=== PATIENT | female | born 1940 | race Caucasian/White ===

== ENCOUNTER → 2016-10-04 | Outpatient (CLI) | payer MEDICARE, OTHER ==
--- NOTE | 2016-10-04 12:23 | WOMENS IMAGING REPORT ---
EXAM DESCRIPTION: 3D SCREENING MAMMO BILAT COMPLETED DATE/TIME: 10/04/2016 11:17 am REASON FOR STUDY: ROUTINE SCREENING 3D; Z12.31 Z12.31 ENCNTR SCREEN MAMMOGRAM FOR MALIGNANT NEOPLAS M OF ALEX COMPARISON: 10/05/2015 and 10/02/2014. TECHNIQUE: Standard craniocaudal and mediolateral oblique views of each breast recorded using digita l acquisition and breast tomosynthesis. LIMITATIONS: None. FINDINGS: Findings present which are benign by mammographic criteria. No suspicious masses, calcifi cations or architectural distortion. Pertinent benign findings: Stable calcifications. Read with the assistance of CAD. .[facility] - R2 Cenova Version 1.3 .[facility] Imaging - R2 Cenova Version 1.3 .[facility] - R2 Cenova Version 2.4 .[facility] [place] Cenova Version 2.4 .[facility] - R2 Tankroom Worker Version 9.2 Benign mammographic findings may include one or more of the following: Smooth masses, popcorn/rim/co arse calcifications, asymmetries, post-procedure changes, and lesions with long-standing stability. IMPRESSION: BENIGN MAMMOGRAPHIC FINDINGS. BIRADS 2 BREAST DENSITY: b. There are scattered areas of fibroglandular density. BIRAD: 2 BENIGN FINDING(S) RECOMMENDATION: RECOMMENDATION: ROUTINE SCREENING COMMENT: The patient has been notified of the results by letter per SA requirements. Additional no tification policies are in place for contacting patient with suspicious or incomplete findings. Quality ID #[id number]: The [employer] recommends an annual screening mammogram for women aged 40 years or over. This facility utilizes a reminder system to ensure that all patients receive reminder letters, and/or direct phone calls for appointments. This includes reminders for routine scr eening mammograms, diagnostic mammograms, or other Breast Imaging Interventions when appropriate. Th is patient will be placed in the appropriate reminder system. The [employer] (ACR) has developed recommendations for screening MRI of the breast s in certain patient populations, to be used in conjunction with mammography. Breast MRI surveillanc e may be appropriate for women with more than 20% lifetime risk of developing breast cancer as deter mined by genetic testing, significant family history of the disease, or history of mantle radiation f or Hodgkins Disease. ACR Practice Guidelines 2008. DBT Technology DBT is a type of tomographic mammography. With conventional mammography, overlapping breast tissue ma y make lesions difficult to detect, even with good compression. DBT uses an x-ray tube that rotates a round the breast, taking images at different angles. These images are then combined to create thin sl ices of the breast that the radiologist can view as a 3D reconstruction. The [employer] unit can perform full-field digital mammograms (2D imaging); or DBT (3D imaging); or both, in a combination mode that quickly performs both the mammogram and the tomosynthesis scan while the breast is still compressed. PQRS 6045F: Fluoroscopic imaging is not utilized for breast tomosynthesis. TECHNICAL DOCUMENTATION: FINDING NUMBER: (1) ASSESSMENT: (1) JOB ID: [id number] [employer]- All Rights Reserved
== END ==
LOC: WI 10:43
PROVIDERS: ATTEND Surgery
DX: Z12.31 Encounter for screening mammogram for malignant neoplasm of breast (principal)
CPT/HCPCS: 77063; G0202; 77067

== ENCOUNTER → 2016-11-28 | Outpatient (CLI) | payer MEDICARE, OTHER ==
--- NOTE | 2016-11-28 10:17 | RADIOLOGY REPORT (SQ) ---
EXAM DESCRIPTION: CT CHEST WITHOUT COMPLETED DATE/TIME: 11/28/2016 7:14 am REASON FOR STUDY: SOLITARY PULMONARY NODULE (R91.1), OTHER DISORDERS OF LUNG (J98.4) R91.1 SOLITARY PULMONARY NODULE J98.4 OTHER DISORDERS OF LUNG COMPARISON: PET-CT 11/30/2014 CT chest 10/30/2014, 11/26/2015 TECHNIQUE: CT scan performed of the chest without intravenous contrast. Images reviewed with lung, soft tissue and bone windows. Reconstructed coronal and sagittal MPR images reviewed. All images st ored on PACS. All CT scanners at this facility use dose modulation, iterative reconstruction, and/or weight based d osing when appropriate to reduce radiation dose to as low as reasonably achievable (ALARA). [facility]: Dose Right [facility]: CareDose [facility]: Dose Right [facility]: Teradose 4D [facility]: [employer] RADIATION DOSE: Up-to-date CT equipment and radiation dose reduction techniques were employed. CTDIv ol: 15.3 - 16.3 mGy. DLP: 840 mGy-cm. mGy. LIMITATIONS: No technical limitations. FINDINGS: LUNGS AND PLEURA: An 8 mm left lower lobe nodule is present on axial image 93, unchanged f rom CT 10/30/2014, benign. Along the right major fissure, a 10 x 8 cm bulla or bleb is present unchanged. No acute infiltrates. No pleural effusion or pneumothorax. HILAR AND MEDIASTINAL STRUCTURES: Stable 1.3 x 0.9 cm prevascular lymph node axial image 24, unchange d from 10/30/2014. HEART AND VASCULAR STRUCTURES: No aneurysm. No pericardial effusion. UPPER ABDOMEN: Post cholecystectomy THYROID AND OTHER SOFT TISSUES: No masses. No adenopathy. BONES: No significant finding. HARDWARE: None in the chest. OTHER: No other significant findings. IMPRESSION: 8 mm left lower lobe nodule, benign. This is unchanged from 2015. TECHNICAL DOCUMENTATION: JOB ID: [id number] Quality ID # [id number]: Final reports with documentation of one or more dose reduction techniques (e.g., Au tomated exposure control, adjustment of the mA and/or kV according to patient size, use of iterative reconstruction technique) 2010 [employer]- All Rights Reserved
== END ==
LOC: RAD 07:00
PROVIDERS: ATTEND Internal Medicine
DX: R91.1 Solitary pulmonary nodule (principal); J98.4 Other disorders of lung
CPT/HCPCS: 71250

== ENCOUNTER → 2017-08-05 | Outpatient (CLI) | payer MEDICARE, OTHER ==
--- NOTE | 2017-08-05 16:49 | RADIOLOGY REPORT (SQ) ---
EXAM DESCRIPTION: MRI PELVIS WITHOUT COMPLETED DATE/TIME: 08/05/2017 4:07 pm REASON FOR STUDY: HIP PAIN YANIRA M25.551 PAIN IN RIGHT HIP M25.552 PAIN IN LEFT HIP COMPARISON: None. TECHNIQUE: Multiplanar multisequence imaging performed without contrast including axial, sagittal an d coronal T2, axial T1, sagittal inversion recovery. LIMITATIONS: None. FINDINGS: There is heterogeneous intermediate T1 signal most likely due to benign marrow reconversio n. There is joint space narrowing, osteophyte formation in both hips. Extensive subchondral cyst fo rmation in both femoral heads and in the left acetabulum. Small amount of fluid at the left gluteal insertion on the greater trochanter. No significant bursal fluid collection. Pelvic floor contents unremarkable. Spondylosis and facet arthropathy. 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 TECHNICAL DOCUMENTATION: JOB ID: [id number] [employer]- All Rights Reserved Reading location - IP/workstation name: [email or web address]
== END ==
LOC: RAD 14:38
PROVIDERS: ATTEND Orthopaedic Surgery
DX: M25.551 Pain in right hip (principal); M25.552 Pain in left hip; M16.0 Bilateral primary osteoarthritis of hip
CPT/HCPCS: 72195

== ENCOUNTER → 2017-10-12 | Outpatient (CLI) | payer MEDICARE, OTHER ==
--- NOTE | 2017-10-13 09:55 | WOMENS IMAGING REPORT ---
EXAM DESCRIPTION: 3D SCREENING MAMMO BILAT COMPLETED DATE/TIME: 10/12/2017 2:08 pm REASON FOR STUDY: BILATERAL MAMMO SCREENING 3D/Z12.31 Z12.31 ENCNTR SCREEN MAMMOGRAM FOR MALIGNANT NEOPLASM OF ALEX COMPARISON: 10/04/2016 and 10/05/2015. TECHNIQUE: Standard craniocaudal and mediolateral oblique views of each breast recorded using digita l acquisition and breast tomosynthesis. LIMITATIONS: None. FINDINGS: No masses, calcifications or architectural distortion. No areas of suspicion. Read with the assistance of CAD. .[facility] - R2 Cenova Version 1.3 .[facility] Imaging - R2 Cenova Version 1.3 .[facility] - R2 Cenova Version 2.4 .[facility] - R2 Cenova Version 2.4 .[facility] - R2 Manufacturing Technology Analyst Version 9.2 IMPRESSION: NORMAL MAMMOGRAM. BIRADS 1. BREAST DENSITY: b. There are scattered areas of fibroglandular density. BIRAD: 1 NEGATIVE RECOMMENDATION: ROUTINE SCREENING COMMENT: The patient has been notified of the results by letter per SA requirements. Additional no tification policies are in place for contacting patient with suspicious or incomplete findings. Quality ID #225: The [employer] recommends an annual screening mammogram for women aged 40 years or over. This facility utilizes a reminder system to ensure that all patients receive reminder letters, and/or direct phone calls for appointments. This includes reminders for routine scr eening mammograms, diagnostic mammograms, or other Breast Imaging Interventions when appropriate. Th is patient will be placed in the appropriate reminder system. The [employer] (ACR) has developed recommendations for screening MRI of the breast s in certain patient populations, to be used in conjunction with mammography. Breast MRI surveillanc e may be appropriate for women with more than 20% lifetime risk of developing breast cancer as deter mined by genetic testing, significant family history of the disease, or history of mantle radiation f or Hodgkins Disease. ACR Practice Guidelines 2008. DBT Technology DBT is a type of tomographic mammography. With conventional mammography, overlapping breast tissue ma y make lesions difficult to detect, even with good compression. DBT uses an x-ray tube that rotates a round the breast, taking images at different angles. These images are then combined to create thin sl ices of the breast that the radiologist can view as a 3D reconstruction. The [employer] 3D unit can perform full-field digital mammograms (2D imaging); or DBT (3D imaging); or both, in a combination mode that quickly performs both the mammogram and the tomosynthesis scan while the breast is still compressed. PQRS 6045F: Fluoroscopic imaging is not utilized for breast tomosynthesis. TECHNICAL DOCUMENTATION: FINDING NUMBER: (1) ASSESSMENT: (1) JOB ID: [id number] [employer]- All Rights Reserved Reading location - IP/workstation name: [email or web address]
== END ==
LOC: WI 12:44
PROVIDERS: ATTEND Surgery
DX: Z12.31 Encounter for screening mammogram for malignant neoplasm of breast (principal)
CPT/HCPCS: 77063; 77067

== ENCOUNTER → 2017-11-28 | Outpatient (CLI) | payer MEDICARE, OTHER ==
--- NOTE | 2017-11-28 12:54 | RADIOLOGY REPORT (SQ) ---
EXAM DESCRIPTION: CT CHEST WITHOUT COMPLETED DATE/TIME: 11/28/2017 12:38 pm REASON FOR STUDY: SOLITARY PULMONARY NODULE (R91.1) R91.1 SOLITARY PULMONARY NODULE COMPARISON: 11/28/2016 TECHNIQUE: CT scan performed of the chest without intravenous contrast. Images reviewed with lung, soft tissue and bone windows. Reconstructed coronal and sagittal MPR images reviewed. All images st ored on PACS. All CT scanners at this facility use dose modulation, iterative reconstruction, and/or weight based d osing when appropriate to reduce radiation dose to as low as reasonably achievable (ALARA). [facility]: Dose Right [facility]: CareDose [facility]: Dose Right [facility]: Teradose 4D [facility]: [employer] RADIATION DOSE: CT Rad equipment meets quality standard of care and radiation dose reduction techniq ues were employed. CTDIvol: 17.9 mGy. DLP: 696 mGy-cm. mGy. LIMITATIONS: No technical limitations. FINDINGS: LUNGS AND PLEURA: 8 mm pulmonary nodule left lower lobe has been stable since 2014. No ne w nodules. Stable bulla right lower lobe. HILAR AND MEDIASTINAL STRUCTURES: No identified masses or abnormal nodes. No obvious aneurysm. HEART AND VASCULAR STRUCTURES: No aneurysm. No pericardial effusion. UPPER ABDOMEN: No significant findings. Limited exam. THYROID AND OTHER SOFT TISSUES: No masses. No adenopathy. BONES: No significant finding. HARDWARE: None in the chest. OTHER: No other significant findings. IMPRESSION: Benign pulmonary nodule. TECHNICAL DOCUMENTATION: JOB ID: [id number] Quality ID # [id number]: Final reports with documentation of one or more dose reduction techniques (e.g., Au tomated exposure control, adjustment of the mA and/or kV according to patient size, use of iterative reconstruction technique) 2010 [employer]- All Rights Reserved Reading location - IP/workstation name: [email or web address]-[email or web address]
== END ==
LOC: RAD 12:19
PROVIDERS: ATTEND Internal Medicine
DX: R91.1 Solitary pulmonary nodule (principal)
CPT/HCPCS: 71250

== ENCOUNTER → 2017-12-06 | Outpatient (CLI) | payer MEDICARE, OTHER ==
[2017-12-06 14:35] LABS: ABSOLUTE BASOPHILS # (AUTO) 0.1 10^3/uL (0.0-0.2); ABSOLUTE EOSINOPHILS # (AUTO) 0.2 10^3/uL (0.0-0.6); ABSOLUTE LYMPHOCYTES (AUTO) 1.7 10^3/uL (0.5-4.7); ABSOLUTE MONOCYTES (AUTO) 0.3 10^3/uL (0.1-1.4); ABSOLUTE NEUT (AUTO) 4.2 10^3/uL (1.7-8.2); BASOPHILS % (AUTO) 1.2 % (0-2); EOSINOPHILS % (AUTO) 2.7 % (0-6); HEMATOCRIT 38.2 % (36.0-47.0); HEMOGLOBIN 12.7 g/dL (12.0-15.5); LYMPHOCYTES % (AUTO) 25.8 % (13-45); MEAN CORPUSCULAR HEMOGLOBIN 29.6 pg (27.0-33.4); MEAN CORPUSCULAR HGB CONC 33.1 g/dL (32.0-36.0); MEAN CORPUSCULAR VOLUME 90 fl (80-97); MONOCYTES % (AUTO) 5.4 % (3-13); PLATELET COUNT 223 10^3/uL (150-450); RED BLOOD COUNT 4.27 10^6/uL (3.72-5.28); SEGMENTED NEUTROPHILS % (AUTO) 64.9 % (42-78); TOTAL CELLS COUNTED % (AUTO) 100 %; WHITE BLOOD COUNT 6.4 10^3/uL (4.0-10.5)
[2017-12-06 14:46] LABS: ANION GAP 8 (5-19); BLOOD UREA NITROGEN 20 mg/dL (7-20); CALCIUM 9.4 mg/dL (8.4-10.2); CARBON DIOXIDE 30 mmol/L (22-30); CHLORIDE 102 mmol/L (98-107); GLUCOSE 114 mg/dL (75-110); POTASSIUM 4.8 mmol/L (3.6-5.0); SODIUM 140.2 mmol/L (137-145)
[2017-12-06 14:49] LABS: APPEARANCE,URINE SLIGHTLY-CLOUDY; BILIRUBIN,URINE NEGATIVE (NEGATIVE); COLOR,URINE YELLOW; GLUCOSE, URINE NEGATIVE (NEGATIVE); KETONES,URINE NEGATIVE (NEGATIVE); LEUKOCYTE ESTERASE,URINE TRACE (NEGATIVE); NITRITE,URINE NEGATIVE (NEGATIVE); PROTEIN,URINE NEGATIVE (NEGATIVE); URINE SPECIFIC GRAVITY 1.017; UROBILINOGEN,URINE NEGATIVE mg/dL (<2.0)
--- NOTE | 2017-12-06 15:23 | RADIOLOGY REPORT (SQ) ---
EXAM DESCRIPTION: CHEST PA/LATERAL COMPLETED DATE/TIME: 12/06/2017 2:42 pm REASON FOR STUDY: PRE-OP COMPARISON: CT 11/28/2017 EXAM PARAMETERS: NUMBER OF VIEWS: two views TECHNIQUE: Digital Frontal and Lateral radiographic views of the chest acquired. RADIATION DOSE: NA LIMITATIONS: none FINDINGS: LUNGS AND PLEURA: No acute infiltrate or effusion. Large pneumatocoele on the right can b e defined, especially knowing the CT results. MEDIASTINUM AND HILAR STRUCTURES: No masses or contour abnormalities. HEART AND VASCULAR STRUCTURES: Heart normal size. No evidence for failure. BONES: No acute findings. HARDWARE: None in the chest. OTHER: No other significant finding. IMPRESSION: No acute findings in the chest. Known large pneumatocoele on the right. TECHNICAL DOCUMENTATION: JOB ID: [id number] [employer]- All Rights Reserved Reading location - IP/workstation name: [email or web address]
--- NOTE | 2017-12-07 09:09 | EKG REPORT ---
SEVERITY:- BORDERLINE ECG - SINUS RHYTHM BORDERLINE LEFT AXIS DEVIATION CONSIDER ANTERIOR INFARCT : Confirmed by: Alf Dinh 07-Dec-2017 09:08:24
== END ==
LOC: OD 13:36
PROVIDERS: ATTEND Orthopaedic Surgery
DX: Z01.810 Encounter for preprocedural cardiovascular examination (principal); Z01.812 Encounter for preprocedural laboratory examination; Z01.818 Encounter for other preprocedural examination; J98.4 Other disorders of lung
CPT/HCPCS: 36415; 71046; 80048; 81001; 85025; 93005; 93010

== ENCOUNTER 2018-01-01 07:52 | Inpatient (IN) | payer MEDICARE, OTHER ==
[~2018-01-01 07:52] MED LIST: BUPIVACAINE HCL 0.25% /EPINEPHRINE INJ/PF 30 ML SDV ONE; BUPIVACAINE INJ/PF LIPOSOME/PF 266 MG/20 ML SDV IJ PRN; CEFAZOLIN INJ 1 GM VIAL IV PRN; CLINDAMYCIN 600 MG/D5W RTU 600 MG/50 ML RTUPB IV PRN; IBUPROFEN 800 MG/NS 250 ML IV PRN; LACTATED RINGERS 1000 ML IV PRN; LANSOPRAZOLE 15 MG TAB.RAP.DR PO PRN; LIDOCAINE 0.5% INJ-PF (5 MG/ML) 50 ML SDV SUBCUT PRN; OXYCODONE HCL SR 10 MG TABLET PO PRN; THROMBIN (BOVINE) TOPICAL 20000 UNIT VIAL ONE; VANCOMYCIN HCL 1,000 MG in DEXTROSE 5%-WATER 250 ML IV PRN
[2018-01-01] MEDS ORDERED: EPINEPHRINE INJ/PF 1 MG/1 ML AMPULE ONE (08:59)
[2018-01-01] MEDS ORDERED: FENTANYL CITRATE INJ/PF 100 MCG/2 ML AMPUL ONE (08:59)
[2018-01-01] MEDS ORDERED: MIDAZOLAM 2 MG/2 ML INJ ONE (09:00)
[2018-01-01] MEDS ORDERED: EPHEDRINE SULFATE INJ 50 MG/1 ML AMPULE ONE (09:00)
[2018-01-01] MEDS ORDERED: PROPOFOL INJ 200 MG/20 ML VIAL IV ONE (09:00)
[2018-01-01] MEDS ORDERED: BUPIVACAINE HCL/DEX-WATER/PF 15 MG/2 ML AMPULE ONE (09:01)
[2018-01-01] MEDS ORDERED: THROMBIN (BOVINE) 5000 UNIT EPITAXIS KIT ONE (09:03)
[2018-01-01] MEDS ORDERED: LANSOPRAZOLE 15 MG TAB.RAP.DR ONE (09:17)
[2018-01-01] MEDS ORDERED: OXYCODONE HCL SR 10 MG TABLET PO ONE (09:18)
[2018-01-01] MEDS ORDERED: PROMETHAZINE HCL INJ 25 MG/1 ML VIAL IV PRN ×2 (10:37)
[2018-01-01] MEDS ORDERED: MEPERIDINE HCL/PF INJ 25 MG/1 ML DISP.SYRIN IV PRN (10:37)
[2018-01-01] MEDS ORDERED: DIPHENHYDRAMINE HCL 50 MG/ML VIAL IV PRN ×2 (10:37→11:21)
--- NOTE | 2018-01-01 11:19 | Operative Report ---
Operative Report DATE OF SURGERY: 01/01/18 PREOPERATIVE DIAGNOSIS: Right hip arthritis OPERATION: Right hip arthroplasty SURGEON: QUETA SMALLS ANESTHESIA: Spinal TISSUE REMOVED OR ALTERED: Femoral head to pathology ESTIMATED BLOOD LOSS: 100 PROCEDURE: Implants used: Femur: Wharton size 4 Accolade 2 stem Acetabular shell: 56 mm hemispherical shell Liner: 36 mm flat cross-link polyethylene liner Head: A 6 mm chrome cobalt head standard neck The patient is placed in a left lateral decubitus position on the operating table. The right lower extremity and hindquarter is prepped and draped in a sterile fashion. A curvilinear incision was made over the greater trochanter a posterior approach the hip was taken. The femoral head is dislocated and the femoral neck transected using an oscillating saw. Attention was next turned to the acetabulum. Soft tissues cleared off the acetabulum using electrocautery. The acetabulum was then prepared using a series of hemispherical reamers until a 56 millimeters reamer is seated. Subsequently a 56 millimeters [place] titanium hemispherical shell is impacted into position and secured with one screw. A standard flat 36 millimeters cross- link liner is impacted into the shell. Attention was next turned to the femur. Access is gained to the femoral canal using a box osteotome to the piriformis fossa. The femur is then prepared using a series of broaches until a number 4 broach is seated. A trial reduction was now performed using a 36 millimeters head with standard neck. Preoperative leg length was recreated and is excellent anterior posterior stability. A decision was made to proceed with the above construct. All trial implants were removed. The wound is irrigated with pulsed lavage. A number 4 stem is impacted into the femoral canal. A trial reduction was again performed with a 36 mm head and a standard neck. Findings as previously. The hip was dislocated one last time and the final chrome-cobalt head is impacted onto the trunnion. The hip was reduced. Wound is copiously irrigated with pulsed lavage. Sent closed in layers using interrupted Vicryl followed by gwendolyn. A sterile dressing is applied and the patient's returned to recovery room in satisfactory patient.
[2018-01-01] MEDS ORDERED: ACETAMINOPHEN 325 MG TABLET PO PRN (11:21)
[2018-01-01] MEDS ORDERED: ONDANSETRON 4 MG TAB.RAPDIS PO PRN (11:21)
[2018-01-01] MEDS ORDERED: MAG HYDROX/AL HYDROX/SIMETH SUSP 30 ML UDCUP PO PRN (11:21)
[2018-01-01] MEDS ORDERED: RINGERS SOLUTION,LACTATED 1,000 ML IV PRN (11:21)
[2018-01-01] MEDS ORDERED: ZOLPIDEM TARTRATE 5 MG TABLET PO PRN (11:21)
[2018-01-01] MEDS ORDERED: TRANEXAMIC ACID INJ/PF 1,000 MG/10 ML SDV IV ONE ×2 (13:30→13:38)
--- NOTE | 2018-01-01 13:37 | RADIOLOGY REPORT (SQ) ---
EXAM DESCRIPTION: PELVIS AP COMPLETED DATE/TIME: 01/01/2018 12:04 pm REASON FOR STUDY: Post Op Long Cassette in PACU M16.11 UNILATERAL PRIMARY OSTEOARTHRITIS, RIGHT HI P COMPARISON: None. NUMBER OF VIEWS: One view TECHNIQUE: AP Pelvis LIMITATIONS: None. FINDINGS: Imaging of the pelvis and proximal femurs shows a right hip arthroplasty in good position. No acute abnormality is seen. Lower lumbar degenerative changes are present. IMPRESSION: Right hip arthroplasty. TECHNICAL DOCUMENTATION: JOB ID: [id number] [employer]- All Rights Reserved Reading location - IP/workstation name: [email or web address]
[2018-01-01] MEDS ORDERED: DIAZEPAM 5 MG TABLET PO SCH (14:00)
[2018-01-01] MEDS: OXYCODONE HCL IR 5 MG TABLET PO PRN (14:51)
--- NOTE | 2018-01-01 17:52 | PDOC CONSULTATION ---
Consultation Consult Date: 01/01/18 Attending physician:: QUETA SMALLS Consult reason:: medical mx History of Present Illness Admission Date/PCP: 01/01/18 07:52 RANJAN PRICE MD History of Present Illness: TIM ORELLANA is a 77 year old female pt under went for rt hip replace ment pt is doing well pt walk with pt today no chest pain no sob ptalso see dr uqeen and dr reed as out pt for cad/ckd Past Medical History Cardiac Medical History: Reports: Congestive Heart Failure, Coronary Artery Disease, Hypertension, Heart Murmur Denies: Atrial Fibrillation, Myocardial Infarction, Hyperlipidema, Peripheral Vascular Disease Cardiac History Note: aortic valve disese Pulmonary Medical History: Denies: Asthma, Bronchitis, Chronic Obstructive Pulmonary Disease (COPD), Pneumonia Neurological Medical History: Denies: Seizures Endocrine Medical History: Reports: Hypothyroidism Denies: Hyperthyroidism Renal/ Medical History: Reports: Chronic Kidney Disease Denies: End Stage Renal Disease GI Medical History: Reports: Gastroesophageal Reflux Disease Denies: Crohn's Disease, Hiatal Hernia Musculoskeltal Medical History: Reports: Arthritis - hips, knees, hands Denies: Fibromyalgia Hematology: Denies: Anemia Past Surgical History Past Surgical History: Reports: Cholecystectomy, Hysterectomy Denies: Amputation, Appendectomy, Section, Colostomy, Coronary Artery Bypass Graft, Gastric Bypass Surgery, Herniorrhaphy, Mastectomy, Pacemaker, Tonsillectomy, Tubal Ligation Social History Smoking Status: Former Smoker Hx Recreational Drug Use: No Hx Prescription Drug Abuse: No - Advance Directive Resuscitation Status: Full Code Family History Family History: Reviewed & Not Pertinent Parental Family History Reviewed: Yes Children Family History Reviewed: Yes Sibling(s) Family History Reviewed.: Yes Medication/Allergy Home Medications: Acetaminophen [Tylenol 325 mg Tablet] 500 mg PO ASDIR PRN 10/04/12 Allopurinol [Zyloprim 100 Mg Tablet] 100 mg PO DAILY 10/04/12 Aspirin [Ecotrin 81 mg EC Tablet] 81 mg PO QHS 10/04/12 Atorvastatin Calcium [Lipitor] 10 mg PO QHS 10/04/12 Calcium Carbonate/Vitamin D3 [Calcium + Vitamin D Tablet] 600 mg PO BID Diazepam [Valium 5 Mg Tablet] 5 mg PO TID 10/04/12 Ergocalciferol (Vitamin D2) [Drisdol 50,000 unit (1.25MG) Capsule] 50,000 unit PO ASDIR 10/04/12 Estrogens,Conjugated [Premarin 0.3 Mg Tablet] 0.3 mg PO DAILY 10/04/12 Furosemide [Lasix 20 mg Tablet] 10 mg PO DAILY 10/04/12 Gabapentin [Neurontin 300 Mg Capsule] 300 mg PO BID 10/04/12 Levothyroxine Sodium [Synthroid 0.075 mg Tablet] 0.015 mcg PO DAILY 10/04/12 Meclizine HCl [Antivert] 25 mg PO ASDIR PRN 10/04/12 Metoprolol Tartrate [Lopressor 25 Mg Tablet] 25 mg PO BID 10/04/12 Mineral Oil/Hydrophil Petrolat [Aquaphor Healing Ointment] 50 gm TP ASDIR [place]-3 Fatty Acids/Fish Oil [[place] 3 Fish Oil Softgel] 1 each PO DAILY Psyllium Husk [Metamucil] 0.52 gm PO DAILY 10/04/12 Ranitidine HCl 150 mg PO BID 10/04/12 Zafirlukast [Accolate 10 mg Tablet] 10 mg PO DAILY 10/04/12 Ibuprofen 800 mg PO DAILY 12/21/17 Multivit-Min/Iron/Folic/Lutein [Centrum Silver Women Tablet] 1 tab PO DAILY Telmisartan [Micardis 80 mg Tablet] 80 mg PO DAILY 12/21/17 Allergies/Adverse Reactions: ciprofloxacin [From Cipro] Allergy (Intermediate, Verified 01/01/18 08:28) rash, n/v ciprofloxacin HCl [From Cipro] Allergy (Intermediate, Verified 01/01/18 08:28) rash, n/v metronidazole [Metronidazole] Allergy (Intermediate, Verified 01/01/18 08:28) unsure morphine [Morphine] Allergy (Intermediate, Verified 01/01/18 08:28) n/v cephalexin monohydrate [From Keflex] Adverse Reaction (Intermediate, Verified 08:28) rash codeine [Codeine] Adverse Reaction (Intermediate, Verified 01/01/18 08:28) n/v Sulfa (Sulfonamide Antibiotics) Adverse Reaction (Intermediate, Verified 08:28) hives, rash Bee stings Allergy (Severe, Uncoded 01/01/18 08:28) Anaphylaxis IVP Dye Adverse Reaction (Intermediate, Uncoded 01/01/18 08:28) hives, rash novacaine Adverse Reaction (Intermediate, Uncoded 01/01/18 08:28) pass out strawberries Adverse Reaction (Intermediate, Uncoded 01/01/18 08:28) rash medical tape Adverse Reaction (Mild, Uncoded 01/01/18 08:28) rash Review of Systems Constitutional: ABSENT: chills, fever(s), headache(s), weight gain, weight loss Eyes: ABSENT: visual disturbances Ears: ABSENT: hearing changes Cardiovascular: ABSENT: chest pain, dyspnea on exertion, edema, orthropnea, palpitations Respiratory: ABSENT: cough, hemoptysis Gastrointestinal: ABSENT: abdominal pain, constipation, diarrhea, hematemesis, hematochezia, nausea, vomiting Genitourinary: ABSENT: dysuria, hematuria Musculoskeletal: ABSENT: joint swelling Integumentary: ABSENT: rash, wounds Neurological: ABSENT: abnormal gait, abnormal speech, confusion, dizziness, focal weakness, syncope Psychiatric: ABSENT: anxiety, depression, homidical ideation, suicidal ideation Endocrine: ABSENT: cold intolerance, heat intolerance, menstrual abnormalities, polydipsia, polyuria Hematologic/Lymphatic: ABSENT: easy bleeding, easy bruising, lymphadenopathy Physical Exam Vital Signs: Temp Pulse Resp BP Pulse Ox 97.4 F 62 17 107/54 L 91 L 01/01/18 17:15 01/01/18 17:15 01/01/18 17:15 01/01/18 17:15 01/01/18 17:15 Intake & Output 12/31/17 01/01/18 01/02/18 06:59 06:59 06:59 Intake Total 3050 Output Total 2600 Balance 450 General appearance: PRESENT: no acute distress, well-developed, well-nourished Head exam: PRESENT: atraumatic, normocephalic Eye exam: PRESENT: conjunctiva pink, EOMI, PERRLA. ABSENT: scleral icterus Ear exam: PRESENT: normal external ear exam Mouth exam: PRESENT: moist, tongue midline Neck exam: PRESENT: full ROM. ABSENT: carotid bruit, JVD, lymphadenopathy, thyromegaly Respiratory exam: PRESENT: clear to auscultation scooby Cardiovascular exam: PRESENT: RRR. ABSENT: diastolic murmur, rubs, systolic murmur Pulses: PRESENT: normal dorsalis pedis pul, +2 pedal pulses bilateral Vascular exam: PRESENT: normal capillary refill GI/Abdominal exam: PRESENT: normal bowel sounds, soft. ABSENT: distended, guarding, mass, organolmegaly, rebound, tenderness Rectal exam: PRESENT: deferred Extremities exam: ABSENT: pedal edema Additional comments: rt side hip dressing intact Musculoskeletal exam: PRESENT: ambulatory Neurological exam: PRESENT: alert, awake, oriented to person, oriented to place , oriented to time, oriented to situation, CN II-XII grossly intact. ABSENT: motor sensory deficit Psychiatric exam: PRESENT: appropriate affect, normal mood. ABSENT: homicidal ideation, suicidal ideation Skin exam: PRESENT: dry, intact, warm. ABSENT: cyanosis, rash Results Laboratory Results: 01/01/18 08:35 01/01/18 01/01/18 08:35 08:35 Potassium 4.0 Blood Type AB NEGATIVE Antibody Screen POSITIVE Impressions: Pelvis X-Ray 01/01/18 11:22 IMPRESSION: Right hip arthroplasty. Assessment & Plan - Diagnosis (1) Hip joint replacement status Qualifiers: Laterality: right Qualified Code(s): Z96.641 - Presence of right artificial hip joint Is this a current diagnosis for this admission?: Yes Plan: STABLE F/U WITH SURGERY (2) Hypertension Qualifiers: Hypertension type: essential hypertension Qualified Code(s): I10 - Essential (primary) hypertension Is this a current diagnosis for this admission?: Yes Plan: CONT CURR MED (3) Chronic kidney disease Qualifiers: Chronic kidney disease stage: stage 3 (moderate) Qualified Code(s): N18.3 - Chronic kidney disease, stage 3 (moderate) Is this a current diagnosis for this admission?: Yes Plan: check bmp in am (4) Congestive heart failure Qualifiers: Heart failure type: diastolic Heart failure chronicity: chronic Qualified Code(s): I50.32 - Chronic diastolic (congestive) heart failure Is this a current diagnosis for this admission?: Yes Plan: pt tolete po well stop iv fluid (5) Hyperlipidemia Qualifiers: Hyperlipidemia type: unspecified Qualified Code(s): E78.5 - Hyperlipidemia , unspecified Is this a current diagnosis for this admission?: Yes (6) Arthritis Is this a current diagnosis for this admission?: Yes (7) Coronary arteriosclerosis Is this a current diagnosis for this admission?: Yes Plan: repat ekg in am (8) Impaired fasting glucose Is this a current diagnosis for this admission?: Yes Plan: check bs - Time Time Spent: 30 to 50 Minutes Medications reviewed and adjusted accordingly: Yes Anticipated discharge: Home Within: Other - Inpatient Certification Based on my medical assessment, after consideration of the patient's comorbidities, presenting symptoms, or acuity I expect that the services needed warrant INPATIENT care.: Yes I certify that my determination is in accordance with my understanding of Medicare's requirements for reasonable and necessary INPATIENT services [42 CFR 412.3e].: Yes Medical Necessity: Significant Comorbidiites Make Outpatient Treatment Too Risky , Need Close Monitoring Due to Risk of Patient Decompensation, Need for Surgery 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
[2018-01-01] MEDS ORDERED: GABAPENTIN 300 MG CAPSULE PO SCH (18:00)
[2018-01-01] MEDS ORDERED: (PENDING PHARMACY ID) (Ranitidine Hcl [Ranitidine Hcl] 150 MG) PO SCH (18:00)
[2018-01-01] MEDS: SENNOSIDES/DOCUSATE 8.6-50 MG 1 EACH TABLET PO SCH (18:30)
[2018-01-01] MEDS: IBUPROFEN 800 MG in NORMAL SALINE 250 ML IV SCH (18:30)
[2018-01-01] MEDS ORDERED: MECLIZINE HCL 25 MG TABLET PO PRN (20:17)
[2018-01-01] MEDS ORDERED: [UNRECOGNIZED DRUG - OTHER] TP SCH (20:30)
[2018-01-01] MEDS ORDERED: VANCOMYCIN HCL 1,000 MG in DEXTROSE 5%-WATER 250 ML IV ONE (23:21)
[2018-01-01] MEDS: OXYCODONE HCL SR 10 MG TABLET PO SCH (23:30)
[2018-01-01] MEDS: ASPIRIN 81 MG TABLET, ENT COATED PO SCH (23:30)
[2018-01-01] MEDS: FAMOTIDINE 20 MG TABLET PO SCH (23:30)
[2018-01-01] MEDS: MONTELUKAST SODIUM 10 MG TABLET PO SCH (23:30)
[2018-01-01] MEDS: ATORVASTATIN CALCIUM 10 MG TABLET PO SCH (23:30)
[2018-01-01] MEDS: METOPROLOL TARTRATE 25 MG TABLET PO SCH (23:30)
[2018-01-01] MEDS: GABAPENTIN 300 MG CAPSULE PO SCH (23:30)
[2018-01-01] MEDS: DIAZEPAM 5 MG TABLET PO SCH (23:33)
[2018-01-02] MEDS: IBUPROFEN 800 MG in NORMAL SALINE 250 ML IV SCH ×3 (04:31→17:08)
[2018-01-02] MEDS: DIAZEPAM 5 MG TABLET PO SCH ×3 (06:27→23:43)
[2018-01-02] MEDS: LANSOPRAZOLE 30 MG TAB.RAP.DR PO SCH (06:27)
[2018-01-02 06:38] LABS: HEMOGLOBIN 10.3 g/dL (12.0-15.5); MEAN CORPUSCULAR HGB CONC 33.1 g/dL (32.0-36.0); MEAN CORPUSCULAR VOLUME 91 fl (80-97); PLATELET COUNT 176 10^3/uL (150-450); RED BLOOD COUNT 3.42 10^6/uL (3.72-5.28); RED CELL DISTRIBUTION WIDTH 13.9 % (11.5-14.0); WHITE BLOOD COUNT 6.9 10^3/uL (4.0-10.5)
[2018-01-02 07:02] LABS: ANION GAP 8 (5-19); BLOOD UREA NITROGEN 20 mg/dL (7-20); CALCIUM 8.9 mg/dL (8.4-10.2); CARBON DIOXIDE 25 mmol/L (22-30); CHLORIDE 107 mmol/L (98-107); GLUCOSE 112 mg/dL (75-110); POTASSIUM 4.3 mmol/L (3.6-5.0); SODIUM 140.2 mmol/L (137-145)
--- NOTE | 2018-01-02 07:21 | PDOC PROGRESS REPORT ---
Subjective Progress Note for:: 01/02/18 Reason For Visit: RIGHT HIP ARTHRITIS 77-year-old white female postop day 1 right hip arthroplasty. Patient states that she is been sleeping soundly. She has minimal discomfort. Physical Exam Vital Signs: Temp Pulse Resp BP Pulse Ox 36.8 C 79 16 130/71 H 98 01/01/18 23:00 01/01/18 23:00 01/01/18 23:00 01/01/18 23:00 01/01/18 23:00 Intake & Output 01/01/18 01/02/18 01/03/18 06:59 06:59 06:59 Intake Total 4100 Output Total 2600 Balance 1500 Weight 104.2 kg General appearance: PRESENT: no acute distress, obese Head exam: PRESENT: normocephalic Respiratory exam: PRESENT: unlabored Cardiovascular exam: PRESENT: RRR Pulses: PRESENT: +1 pedal pulses bilateral Vascular exam: PRESENT: normal capillary refill GI/Abdominal exam: PRESENT: soft Rectal exam: PRESENT: deferred Extremities exam: PRESENT: other - Right hip dressing clean dry and intact. Leg lengths are equal. Distal neurovascular examination is intact. Neurological exam: PRESENT: alert, awake, oriented to person, oriented to place , oriented to time, oriented to situation. ABSENT: motor sensory deficit Psychiatric exam: PRESENT: appropriate affect, normal mood. ABSENT: homicidal ideation, suicidal ideation Skin exam: PRESENT: dry, intact, warm. ABSENT: cyanosis, rash Results Laboratory Results: 01/02/18 06:26 01/02/18 06:26 01/01/18 01/01/18 01/02/18 08:35 08:35 06:26 WBC 6.9 RBC 3.42 L Hgb 10.3 L Hct 31.0 L MCV 91 MCH 30.0 MCHC 33.1 RDW 13.9 Plt Count 176 Sodium Potassium 4.0 Chloride Carbon Dioxide Anion Gap BUN Creatinine Est GFR ( Amer) Est GFR (Non-Af Amer) Glucose Calcium Blood Type AB NEGATIVE Antibody Screen POSITIVE 01/02/18 06:26 WBC RBC Hgb Hct MCV MCH MCHC RDW Plt Count Sodium 140.2 Potassium 4.3 Chloride 107 Carbon Dioxide 25 Anion Gap 8 BUN 20 Creatinine 1.20 Est GFR ( Amer) 53 L Est GFR (Non-Af Amer) 43 L Glucose 112 H Calcium 8.9 Blood Type Antibody Screen Impressions: Pelvis X-Ray 01/01/18 11:22 IMPRESSION: Right hip arthroplasty. Status: Imported from PACS Assessment & Plan - Diagnosis (1) Hip joint replacement status Qualifiers: Laterality: right Qualified Code(s): Z96.641 - Presence of right artificial hip joint Is this a current diagnosis for this admission?: Yes Plan: 77-year-old white female postop day 1 status post right hip arthroplasty. Limited progress with physical therapy yesterday ambulating 20 feet. - Time Time Spent with patient: 15-24 minutes Anticipated discharge: Home with Homehealth Within: within 24 hours
[2018-01-02] MEDS: OXYCODONE HCL IR 5 MG TABLET PO PRN (08:52)
[2018-01-02] MEDS: OXYCODONE HCL SR 10 MG TABLET PO SCH ×2 (09:24→23:41)
[2018-01-02] MEDS: METOPROLOL TARTRATE 25 MG TABLET PO SCH ×2 (09:25→23:42)
[2018-01-02] MEDS: MULTIVITAMIN TABLET PO SCH (09:25)
[2018-01-02] MEDS: GABAPENTIN 300 MG CAPSULE PO SCH ×2 (09:25→23:41)
[2018-01-02] MEDS: OMEGA-3 ACID ETHYL ESTERS 1 GM CAPSULE PO SCH (09:25)
[2018-01-02] MEDS: SENNOSIDES/DOCUSATE 8.6-50 MG 1 EACH TABLET PO SCH ×2 (09:25→17:08)
[2018-01-02] MEDS: FAMOTIDINE 20 MG TABLET PO SCH ×2 (09:26→23:42)
[2018-01-02] MEDS: FUROSEMIDE 20 MG TABLET PO SCH (09:26)
[2018-01-02] MEDS: ALLOPURINOL 100 MG TABLET PO SCH (09:26)
[2018-01-02] MEDS: ENOXAPARIN SODIUM INJ 40 MG/0.4 ML DISP.SYRIN SUBCUT SCH (09:26)
[2018-01-02] MEDS: PRENATAL VITAMIN W DHA CAPSULE PO SCH (09:26)
[2018-01-02] MEDS: ESTROGENS,CONJUGATED 0.3 MG TABLET PO SCH (09:27)
[2018-01-02] MEDS: LEVOTHYROXINE SODIUM 0.075 MG TABLET PO SCH (09:27)
--- NOTE | 2018-01-02 09:41 | PDOC PROGRESS REPORT ---
Subjective Progress Note for:: 01/02/18 Subjective:: pt is doing well denied any chest pain no sob all blood work stable Reason For Visit: RIGHT HIP ARTHRITIS Physical Exam Vital Signs: Temp Pulse Resp BP Pulse Ox 97.8 F 87 17 111/78 90 L 01/02/18 07:00 01/02/18 07:00 01/02/18 07:00 01/02/18 07:00 01/02/18 07:00 Intake & Output 01/01/18 01/02/18 01/03/18 06:59 06:59 06:59 Intake Total 4100 250 Output Total 2600 Balance 1500 250 Weight 104.2 kg General appearance: PRESENT: no acute distress, well-developed, well-nourished Head exam: PRESENT: atraumatic, normocephalic Eye exam: PRESENT: conjunctiva pink, EOMI, PERRLA. ABSENT: scleral icterus Ear exam: PRESENT: normal external ear exam Mouth exam: PRESENT: moist, tongue midline Neck exam: PRESENT: full ROM. ABSENT: carotid bruit, JVD, lymphadenopathy, thyromegaly Respiratory exam: PRESENT: clear to auscultation scooby Cardiovascular exam: PRESENT: RRR. ABSENT: diastolic murmur, rubs, systolic murmur Pulses: PRESENT: normal dorsalis pedis pul, +2 pedal pulses bilateral Vascular exam: PRESENT: normal capillary refill GI/Abdominal exam: PRESENT: normal bowel sounds, soft. ABSENT: distended, guarding, mass, organolmegaly, rebound, tenderness Rectal exam: PRESENT: deferred Extremities exam: ABSENT: pedal edema Musculoskeletal exam: PRESENT: ambulatory Neurological exam: PRESENT: alert, awake, oriented to person, oriented to place , oriented to time, oriented to situation, CN II-XII grossly intact. ABSENT: motor sensory deficit Psychiatric exam: PRESENT: appropriate affect, normal mood. ABSENT: homicidal ideation, suicidal ideation Skin exam: PRESENT: dry, intact, warm. ABSENT: cyanosis, rash Results Laboratory Results: 01/02/18 06:26 01/02/18 06:26 01/01/18 01/02/18 01/02/18 08:35 06:26 06:26 WBC 6.9 RBC 3.42 L Hgb 10.3 L Hct 31.0 L MCV 91 MCH 30.0 MCHC 33.1 RDW 13.9 Plt Count 176 Sodium 140.2 Potassium 4.3 Chloride 107 Carbon Dioxide 25 Anion Gap 8 BUN 20 Creatinine 1.20 Est GFR ( Amer) 53 L Est GFR (Non-Af Amer) 43 L Glucose 112 H Calcium 8.9 Blood Type AB NEGATIVE Antibody Screen POSITIVE Impressions: Pelvis X-Ray 01/01/18 11:22 IMPRESSION: Right hip arthroplasty. Assessment & Plan - Diagnosis (1) Hip joint replacement status Qualifiers: Laterality: right Qualified Code(s): Z96.641 - Presence of right artificial hip joint Is this a current diagnosis for this admission?: Yes Plan: STABLE F/U WITH SURGERY (2) Hypertension Qualifiers: Hypertension type: essential hypertension Qualified Code(s): I10 - Essential (primary) hypertension Is this a current diagnosis for this admission?: Yes Plan: CONT CURR MED (3) Chronic kidney disease Qualifiers: Chronic kidney disease stage: stage 3 (moderate) Qualified Code(s): N18.3 - Chronic kidney disease, stage 3 (moderate) Is this a current diagnosis for this admission?: Yes Plan: check bmp in am (4) Congestive heart failure Qualifiers: Heart failure type: diastolic Heart failure chronicity: chronic Qualified Code(s): I50.32 - Chronic diastolic (congestive) heart failure Is this a current diagnosis for this admission?: Yes Plan: pt tolete po well stop iv fluid (5) Hyperlipidemia Qualifiers: Hyperlipidemia type: unspecified Qualified Code(s): E78.5 - Hyperlipidemia , unspecified Is this a current diagnosis for this admission?: Yes (6) Arthritis Is this a current diagnosis for this admission?: Yes (7) Coronary arteriosclerosis Is this a current diagnosis for this admission?: Yes Plan: repat ekg in am (8) Impaired fasting glucose Is this a current diagnosis for this admission?: Yes Plan: check bs - Time Time Spent with patient: 15-24 minutes Medications reviewed and adjusted accordingly: Yes Anticipated discharge: Home Within: Other - Inpatient Certification Based on my medical assessment, after consideration of the patient's comorbidities, presenting symptoms, or acuity I expect that the services needed warrant INPATIENT care.: Yes I certify that my determination is in accordance with my understanding of Medicare's requirements for reasonable and necessary INPATIENT services [42 CFR 412.3e].: Yes Medical Necessity: Need Close Monitoring Due to Risk of Patient Decompensation 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
[2018-01-02] MEDS ORDERED: LOSARTAN POTASSIUM 50 MG TABLET PO SCH (10:00)
[2018-01-02] MEDS ORDERED: (PENDING PHARMACY ID) (Omega-3 Fatty Acids/Fish Oil [Omega 3 Fish Oil Softgel] 1 EACH) PO SCH (10:00)
[2018-01-02] MEDS ORDERED: (PENDING PHARMACY ID) (Telmisartan [Micardis 80 Mg Tablet] 80 MG) PO SCH (10:00)
[2018-01-02] MEDS ORDERED: ZAFIRLUKAST 10 MG PO SCH (10:00)
--- NOTE | 2018-01-02 10:40 | EKG REPORT ---
SEVERITY:- OTHERWISE NORMAL ECG - SINUS RHYTHM BORDERLINE LEFT AXIS DEVIATION : Confirmed by: Zhanna Watson MD 02-Jan-2018 10:39:52
[2018-01-02] MEDS: MONTELUKAST SODIUM 10 MG TABLET PO SCH (23:42)
[2018-01-02] MEDS: ASPIRIN 81 MG TABLET, ENT COATED PO SCH (23:42)
[2018-01-02] MEDS: ATORVASTATIN CALCIUM 10 MG TABLET PO SCH (23:42)
[2018-01-03] MEDS: IBUPROFEN 800 MG in NORMAL SALINE 250 ML IV SCH ×2 (02:30→10:14)
[2018-01-03 06:40] LABS: HEMATOCRIT 29.7 % (36.0-47.0); HEMOGLOBIN 10.1 g/dL (12.0-15.5); MEAN CORPUSCULAR HEMOGLOBIN 30.3 pg (27.0-33.4); MEAN CORPUSCULAR VOLUME 89 fl (80-97); PLATELET COUNT 174 10^3/uL (150-450); RED BLOOD COUNT 3.33 10^6/uL (3.72-5.28); RED CELL DISTRIBUTION WIDTH 13.8 % (11.5-14.0); WHITE BLOOD COUNT 10.6 10^3/uL (4.0-10.5)
[2018-01-03] MEDS: DIAZEPAM 5 MG TABLET PO SCH ×2 (07:02→14:53)
[2018-01-03] MEDS: LANSOPRAZOLE 30 MG TAB.RAP.DR PO SCH (07:02)
--- NOTE | 2018-01-03 07:49 | PDOC PROGRESS REPORT ---
Subjective Progress Note for:: 01/03/18 Reason For Visit: RIGHT HIP ARTHRITIS 77-year-old white female postop day 2 right hip arthroplasty. Limited progress with physical therapy yesterday because the patient was tired. Physical Exam Vital Signs: Temp Pulse Resp BP Pulse Ox 36.9 C 76 18 113/53 L 99 01/02/18 23:19 01/02/18 23:19 01/02/18 23:19 01/02/18 23:19 01/02/18 23:19 Intake & Output 01/02/18 01/03/18 01/04/18 06:59 06:59 06:59 Intake Total 4100 2020 Output Total 2600 Balance 1500 2020 Weight 104.2 kg 103.6 kg General appearance: PRESENT: no acute distress, mild distress Head exam: PRESENT: normocephalic Respiratory exam: PRESENT: unlabored Cardiovascular exam: PRESENT: RRR Pulses: PRESENT: +1 pedal pulses bilateral Vascular exam: PRESENT: normal capillary refill GI/Abdominal exam: PRESENT: soft Rectal exam: PRESENT: deferred Extremities exam: PRESENT: other - Right hip dressing with a small amount of old drainage. Leg lengths are equal. Distal neurovascular examination is intact. Neurological exam: PRESENT: alert, awake, oriented to person, oriented to place , oriented to time, oriented to situation. ABSENT: motor sensory deficit Psychiatric exam: PRESENT: appropriate affect, normal mood. ABSENT: homicidal ideation, suicidal ideation Skin exam: PRESENT: dry, intact, warm. ABSENT: cyanosis, rash Results Laboratory Results: 01/03/18 06:11 01/02/18 06:26 01/03/18 06:11 WBC 10.6 H RBC 3.33 L Hgb 10.1 L Hct 29.7 L MCV 89 MCH 30.3 MCHC 34.0 RDW 13.8 Plt Count 174 Impressions: Pelvis X-Ray 01/01/18 11:22 IMPRESSION: Right hip arthroplasty. Status: Imported from PACS Assessment & Plan - Diagnosis (1) Hip joint replacement status Qualifiers: Laterality: right Qualified Code(s): Z96.641 - Presence of right artificial hip joint Is this a current diagnosis for this admission?: Yes Plan: 77-year-old white female status post right hip arthroplasty with potentially a component of oversedation which has interfered with her physical therapy yesterday. Morphine is to be discontinued. Patient to be mobilized with physical therapy and weightbearing as tolerated basis. Anticipate discharge home with home health services and DME as per the patient request. - Time Time Spent with patient: 15-24 minutes Anticipated discharge: Home with Homehealth Within: within 24 hours
[2018-01-03] MEDS ORDERED: NORMAL SALINE 500 ML IV ONE (08:45)
[2018-01-03 09:32] LABS: ANION GAP 9 (5-19); BLOOD UREA NITROGEN 26 mg/dL (7-20); CALCIUM 8.5 mg/dL (8.4-10.2); CARBON DIOXIDE 24 mmol/L (22-30); CHLORIDE 104 mmol/L (98-107); GLUCOSE 110 mg/dL (75-110); POTASSIUM 3.7 mmol/L (3.6-5.0); SODIUM 136.7 mmol/L (137-145)
[2018-01-03] MEDS ORDERED: NORMAL SALINE 1000 ML 1,000 ML IV PRN ×2 (09:50→13:54)
--- NOTE | 2018-01-03 09:54 | PDOC PROGRESS REPORT ---
Subjective Progress Note for:: 01/03/18 Subjective:: Patient is currently doing fair Patient's blood pressure is running in the normal range Patient's denied any chest pain denied any shortness of breath Creatinine is 1.2-2.4 Reason For Visit: RIGHT HIP ARTHRITIS Physical Exam Vital Signs: Temp Pulse Resp BP Pulse Ox 99.1 F 32 L 18 98/36 L 91 L 01/03/18 08:01 01/03/18 08:01 01/03/18 08:01 01/03/18 09:16 01/03/18 08:01 Intake & Output 01/02/18 01/03/18 01/04/18 06:59 06:59 06:59 Intake Total 4100 2020 Output Total 2600 Balance 1500 2020 Weight 104.2 kg 103.6 kg General appearance: PRESENT: no acute distress, well-developed, well-nourished Head exam: PRESENT: atraumatic, normocephalic Eye exam: PRESENT: conjunctiva pink, EOMI, PERRLA. ABSENT: scleral icterus Ear exam: PRESENT: normal external ear exam Mouth exam: PRESENT: moist, tongue midline Neck exam: PRESENT: full ROM. ABSENT: carotid bruit, JVD, lymphadenopathy, thyromegaly Respiratory exam: PRESENT: clear to auscultation scooby Cardiovascular exam: PRESENT: RRR. ABSENT: diastolic murmur, rubs, systolic murmur Pulses: PRESENT: normal dorsalis pedis pul, +2 pedal pulses bilateral Vascular exam: PRESENT: normal capillary refill GI/Abdominal exam: PRESENT: normal bowel sounds, soft. ABSENT: distended, guarding, mass, organolmegaly, rebound, tenderness Rectal exam: PRESENT: deferred Neurological exam: PRESENT: alert, awake, oriented to person, oriented to place , oriented to time, oriented to situation, CN II-XII grossly intact. ABSENT: motor sensory deficit Psychiatric exam: PRESENT: appropriate affect, normal mood. ABSENT: homicidal ideation, suicidal ideation Skin exam: PRESENT: dry, intact, warm. ABSENT: cyanosis, rash Results Laboratory Results: 01/03/18 06:11 01/03/18 08:41 01/03/18 01/03/18 06:11 08:41 WBC 10.6 H RBC 3.33 L Hgb 10.1 L Hct 29.7 L MCV 89 MCH 30.3 MCHC 34.0 RDW 13.8 Plt Count 174 Sodium 136.7 L Potassium 3.7 Chloride 104 Carbon Dioxide 24 Anion Gap 9 BUN 26 H Creatinine 2.08 H Est GFR ( Amer) 28 L Est GFR (Non-Af Amer) 23 L Glucose 110 Calcium 8.5 Impressions: Pelvis X-Ray 01/01/18 11:22 IMPRESSION: Right hip arthroplasty. Assessment & Plan - Diagnosis (1) Hip joint replacement status Qualifiers: Laterality: right Qualified Code(s): Z96.641 - Presence of right artificial hip joint Is this a current diagnosis for this admission?: Yes Plan: STABLE F/U WITH SURGERY (2) Hypertension Qualifiers: Hypertension type: essential hypertension Qualified Code(s): I10 - Essential (primary) hypertension Is this a current diagnosis for this admission?: Yes Plan: Currently in the lower end week continues on the losartan and metroprolol (3) Chronic kidney disease Qualifiers: Chronic kidney disease stage: stage 3 (moderate) Qualified Code(s): N18.3 - Chronic kidney disease, stage 3 (moderate) Is this a current diagnosis for this admission?: Yes Plan: Creatinine is worsening most likely underlying low blood pressures will increase the fluid and also stop the losartan this consult the Dr. Souza due to the recent vancomycin stools (4) Congestive heart failure Qualifiers: Heart failure type: diastolic Heart failure chronicity: chronic Qualified Code(s): I50.32 - Chronic diastolic (congestive) heart failure Is this a current diagnosis for this admission?: Yes Plan: pt tolete po well stop iv fluid (5) Hyperlipidemia Qualifiers: Hyperlipidemia type: unspecified Qualified Code(s): E78.5 - Hyperlipidemia , unspecified Is this a current diagnosis for this admission?: Yes (6) Arthritis Is this a current diagnosis for this admission?: Yes (7) Coronary arteriosclerosis Is this a current diagnosis for this admission?: Yes Plan: repat ekg in am (8) Impaired fasting glucose Is this a current diagnosis for this admission?: Yes - Time Time Spent with patient: 15-24 minutes Medications reviewed and adjusted accordingly: Yes Anticipated discharge: Home Within: Other - Inpatient Certification Based on my medical assessment, after consideration of the patient's comorbidities, presenting symptoms, or acuity I expect that the services needed warrant INPATIENT care.: Yes I certify that my determination is in accordance with my understanding of Medicare's requirements for reasonable and necessary INPATIENT services [42 CFR 412.3e].: Yes Medical Necessity: Need Close Monitoring Due to Risk of Patient Decompensation, Need For IV Fluids 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 Souza continues to follow with the surgery
[2018-01-03] MEDS ORDERED: ERGOCALCIFEROL (VITAMIN D2) 50000 UNIT (1.25 MG) CAPSULE PO SCH (10:00)
[2018-01-03] MEDS: OXYCODONE HCL SR 10 MG TABLET PO SCH (10:00)
[2018-01-03] MEDS: ENOXAPARIN SODIUM INJ 40 MG/0.4 ML DISP.SYRIN SUBCUT SCH (10:11)
[2018-01-03] MEDS: ESTROGENS,CONJUGATED 0.3 MG TABLET PO SCH (10:11)
[2018-01-03] MEDS: FAMOTIDINE 20 MG TABLET PO SCH ×2 (10:11→22:22)
[2018-01-03] MEDS: GABAPENTIN 300 MG CAPSULE PO SCH ×2 (10:12→22:23)
[2018-01-03] MEDS: ALLOPURINOL 100 MG TABLET PO SCH (10:12)
[2018-01-03] MEDS: PRENATAL VITAMIN W DHA CAPSULE PO SCH (10:12)
[2018-01-03] MEDS: OMEGA-3 ACID ETHYL ESTERS 1 GM CAPSULE PO SCH (10:12)
[2018-01-03] MEDS: MULTIVITAMIN TABLET PO SCH (10:12)
[2018-01-03] MEDS: SENNOSIDES/DOCUSATE 8.6-50 MG 1 EACH TABLET PO SCH ×2 (10:12→17:44)
[2018-01-03] MEDS: METOPROLOL TARTRATE 25 MG TABLET PO SCH (10:13)
[2018-01-03] MEDS: LEVOTHYROXINE SODIUM 0.075 MG TABLET PO SCH (10:25)
[2018-01-03] MEDS ORDERED: NALOXONE HCL INJ/PF 0.4 MG/1 ML SDV ONE (11:32)
[2018-01-03] MEDS: NALOXONE HCL INJ/PF 0.4 MG/1 ML SDV IV PRN ×2 (13:00→15:46)
[2018-01-03] MEDS: FUROSEMIDE 20 MG TABLET PO SCH (13:37)
[2018-01-03] MEDS ORDERED: NORMAL SALINE 1000 ML 200 ML IV ONE ×2 (14:00→16:00)
--- NOTE | 2018-01-03 15:54 | PDOC CONSULTATION ---
Consultation Consult Date: 01/03/18 Consult reason:: MEDINA on CKD 3. History of Present Illness Admission Date/PCP: 01/01/18 07:52 RANJAN PRICE MD History of Present Illness: TIM ORELLANA is a 77 year old female With a history of hypertension, CAD/CHF, CKD stage III with a base creatinine of around 1-1.2 was admitted for an elective right hip arthroplasty. She underwent right hip arthroplasty couple of days ago which was uneventful. However her baseline creatinine has risen as of yesterday. Reviewing her she remains rather drowsy and there is an element of over narcotics and she has had a couple of doses of Narcan to get her out of Bbg too drowsy. Pupils are rather small with sluggish reaction even though she is currently easily arousable and responding to questions but easily falls asleep.She has had brief episodes of hypotension since yesterday. She has been on her antihypertensives. She is also on ibuprofen infusions. She denies any history of chest pain or shortness of breath orthostasis. Labs and medications were reviewed. Discussions were done with the treating nurse. Past Medical History Cardiac Medical History: Reports: Coronary Artery Disease, Heart Murmur, Hypertension-primary Denies: Atrial Fibrillation, Hyperlipidemia, Myocardial Infarction, Peripheral Vascular Disease Pulmonary Medical History: Denies: Asthma, Bronchitis, Chronic Obstructive Pulmonary Disease (COPD), Pneumonia Neurological Medical History: Denies: Seizures Endocrine Medical History: Reports: Hypothyroidism Denies: Hyperthyroidism Renal/ Medical History: Reports: Chronic Kidney Disease Stage III Denies: End Stage Renal Disease GI Medical History: Reports: Gastroesophageal Reflux Disease Denies: Crohn's Disease, Hiatal Hernia Musculoskeltal Medical History: Reports: Arthritis - hips, knees, hands Denies: Fibromyalgia, Rheumatoid Arthritis, Systemic Lupus Erythematosus Past Surgical History Past Surgical History: Reports: Cholecystectomy, Hysterectomy Denies: Appendectomy, Section, Colostomy, Coronary Artery Bypass Graft, Gastric Bypass Surgery, Herniorrhaphy, Mastectomy, Pacemaker, Tonsillectomy, Tubal Ligation Social History Smoking Status: Former Smoker Hx Recreational Drug Use: No Hx Prescription Drug Abuse: No - Advance Directive Resuscitation Status: Full Code Family History Parental Family History Reviewed: Yes - Negative for CKD/ESRD. Children Family History Reviewed: No Sibling(s) Family History Reviewed.: No Medication/Allergy Home Medications: Acetaminophen [Tylenol 325 mg Tablet] 500 mg PO ASDIR PRN 10/04/12 Allopurinol [Zyloprim 100 Mg Tablet] 100 mg PO DAILY 10/04/12 Aspirin [Ecotrin 81 mg EC Tablet] 81 mg PO QHS 10/04/12 Atorvastatin Calcium [Lipitor] 10 mg PO QHS 10/04/12 Calcium Carbonate/Vitamin D3 [Calcium + Vitamin D Tablet] 600 mg PO BID Diazepam [Valium 5 Mg Tablet] 5 mg PO Q12 10/04/12 Ergocalciferol (Vitamin D2) [Drisdol 50,000 unit (1.25MG) Capsule] 50,000 unit PO WE@1000 10/04/12 Estrogens,Conjugated [Premarin 0.3 Mg Tablet] 0.3 mg PO QHS 10/04/12 Furosemide [Lasix 20 mg Tablet] 10 mg PO DAILY 10/04/12 Gabapentin [Neurontin 300 Mg Capsule] 300 mg PO Q12 10/04/12 Levothyroxine Sodium [Synthroid 0.075 mg Tablet] 0.015 mcg PO DAILY 10/04/12 Meclizine HCl [Antivert] 25 mg PO Q6HP PRN 10/04/12 Metoprolol Tartrate [Lopressor 25 Mg Tablet] 25 mg PO Q12 10/04/12 Mineral Oil/Hydrophil Petrolat [Aquaphor Healing Ointment] 50 gm TP ASDIR [place]-3 Fatty Acids/Fish Oil [[place] 3 Fish Oil Softgel] 1 each PO DAILY Psyllium Husk [Metamucil] 0.52 gm PO DAILY 10/04/12 Ranitidine HCl 150 mg PO Q12 10/04/12 Zafirlukast [Accolate 10 mg Tablet] 10 mg PO DAILY 10/04/12 Ibuprofen 800 mg PO DAILY 12/21/17 Multivit-Min/Iron/Folic/Lutein [Centrum Silver Women Tablet] 1 tab PO DAILY Telmisartan [Micardis 80 mg Tablet] 80 mg PO DAILY 12/21/17 Allergies/Adverse Reactions: ciprofloxacin [From Cipro] Allergy (Intermediate, Verified 01/01/18 08:28) rash, n/v ciprofloxacin HCl [From Cipro] Allergy (Intermediate, Verified 01/01/18 08:28) rash, n/v metronidazole [Metronidazole] Allergy (Intermediate, Verified 01/01/18 08:28) unsure morphine [Morphine] Allergy (Intermediate, Verified 01/01/18 08:28) n/v cephalexin monohydrate [From Keflex] Adverse Reaction (Intermediate, Verified 08:28) rash codeine [Codeine] Adverse Reaction (Intermediate, Verified 01/01/18 08:28) n/v Sulfa (Sulfonamide Antibiotics) Adverse Reaction (Intermediate, Verified 08:28) hives, rash Bee stings Allergy (Severe, Uncoded 01/01/18 08:28) Anaphylaxis IVP Dye Adverse Reaction (Intermediate, Uncoded 01/01/18 08:28) hives, rash novacaine Adverse Reaction (Intermediate, Uncoded 01/01/18 08:28) pass out strawberries Adverse Reaction (Intermediate, Uncoded 01/01/18 08:28) rash medical tape Adverse Reaction (Mild, Uncoded 01/01/18 08:28) rash Review of Systems Constitutional: ABSENT: anorexia, fever(s), headache(s), night sweats, weakness Eyes: ABSENT: visual disturbances Nose, Mouth, and Throat: ABSENT: mouth pain, sore throat Cardiovascular: ABSENT: chest pain, dyspnea on exertion, edema, orthropnea Respiratory: ABSENT: dyspnea, hemoptysis Gastrointestinal: ABSENT: abdominal pain, diarrhea, dysphagia, heartburn, hematemesis, nausea, vomiting Integumentary: ABSENT: erythema, lesions, pruritus, rash Neurological: ABSENT: abnormal speech, confusion, convulsions, focal weakness Psychiatric: ABSENT: anxiety Hematologic/Lymphatic: ABSENT: easy bruising, lymphadenopathy Physical Exam Vital Signs: Temp Pulse Resp BP Pulse Ox 98.6 F 96 17 83/54 L 75 L 01/03/18 15:38 01/03/18 15:38 01/03/18 15:38 01/03/18 15:38 01/03/18 15:38 Intake & Output 01/02/18 01/03/18 01/04/18 06:59 06:59 06:59 Intake Total 4100 2020 950 Output Total 2600 Balance 1500 2020 950 Weight 104.2 kg 103.6 kg General appearance: PRESENT: no acute distress Eye exam: PRESENT: conjunctiva pink, EOMI Ear exam: PRESENT: normal external ear exam Mouth exam: PRESENT: moist, neck supple Neck exam: ABSENT: lymphadenopathy, meningismus, tenderness, thyromegaly, tracheal deviation Respiratory exam: PRESENT: clear to auscultation scooby. ABSENT: crackles, rhonchi Cardiovascular exam: PRESENT: +S1, +S2, systolic murmur GI/Abdominal exam: PRESENT: normal bowel sounds, soft. ABSENT: rebound, tenderness Extremities exam: ABSENT: pedal edema Neurological exam: PRESENT: altered, oriented to person, oriented to place Psychiatric exam: PRESENT: appropriate affect Skin exam: ABSENT: cyanosis, erythema, rash Results Laboratory Results: 01/03/18 06:11 01/03/18 08:41 01/03/18 01/03/18 06:11 08:41 WBC 10.6 H RBC 3.33 L Hgb 10.1 L Hct 29.7 L MCV 89 MCH 30.3 MCHC 34.0 RDW 13.8 Plt Count 174 Sodium 136.7 L Potassium 3.7 Chloride 104 Carbon Dioxide 24 Anion Gap 9 BUN 26 H Creatinine 2.08 H Est GFR ( Amer) 28 L Est GFR (Non-Af Amer) 23 L Glucose 110 Calcium 8.5 Impressions: Pelvis X-Ray 01/01/18 11:22 IMPRESSION: Right hip arthroplasty. Assessment & Plan - Diagnosis (1) MEDINA (acute kidney injury) Plan: Multifactorial.Includes hypertension in the face of surgery and anesthesia along with being given antihypertensives, ibuprofen and infusions and possible urinary obstruction in the face of narcotics.Will discontinue antihypertensives , increase fluid and along with bolus and get a Batista catheter in. Discussed extensively with the patient and with the treating nurse. Monitor closely. (2) Hypotension Plan: Combination of surgery/anesthesia/antihypertensives. Treatment plan as outlined earlier. Monitor. (3) Chronic kidney disease Qualifiers: Chronic kidney disease stage: stage 3 (moderate) Qualified Code(s): N18.3 - Chronic kidney disease, stage 3 (moderate) Is this a current diagnosis for this admission?: Yes Plan: Underlying CKD stage III from hypertension with base creatinine of 1-1.2. Monitor. (4) Congestive heart failure Qualifiers: Heart failure type: diastolic Heart failure chronicity: chronic Qualified Code(s): I50.32 - Chronic diastolic (congestive) heart failure Is this a current diagnosis for this admission?: Yes Plan: Currently stable with no signs of decompensation. Monitor. (5) Hypertension Qualifiers: Hypertension type: essential hypertension Qualified Code(s): I10 - Essential (primary) hypertension Is this a current diagnosis for this admission?: Yes Plan: Currently hypotensive. Withhold antihypertensives until she is normotensive and rising.
[2018-01-03 17:23] LABS: ARTERIAL BLOOD BASE EXCESS -8.4 mmol/L; ARTERIAL BLOOD H2CO3 1.25 mmol/L (1.05-1.35); ARTERIAL BLOOD HCO3 18.2 mmol/L (20-24); ARTERIAL BLOOD O2 SATURATION 83.2 % (94-98); ARTERIAL BLOOD PCO2 41.5 mmHg (35-45); ARTERIAL BLOOD PH 7.26 (7.35-7.45); ARTERIAL BLOOD PO2 53.8 mmHg (80-100); ARTERIAL BLOOD TOTAL CO2 19.4 mmol/L (21-25)
[2018-01-03 17:28] LABS: ARTERIAL BLOOD FIO2 ROOM AIR
--- NOTE | 2018-01-03 18:00 | RADIOLOGY REPORT (SQ) ---
EXAM DESCRIPTION: CHEST SINGLE VIEW COMPLETED DATE/TIME: 01/03/2018 5:46 pm REASON FOR STUDY: Possible fluid overload/sedation COMPARISON: None. EXAM PARAMETERS: NUMBER OF VIEWS: One view. TECHNIQUE: Single frontal radiographic view of the chest acquired. RADIATION DOSE: NA LIMITATIONS: None. FINDINGS: LUNGS AND PLEURA: Bibasilar opacities. No effusions. MEDIASTINUM AND HILAR STRUCTURES: No masses. Contour normal. HEART AND VASCULAR STRUCTURES: Heart enlarged. No overt failure. BONES: No acute findings. HARDWARE: None in the chest. OTHER: No other significant finding. IMPRESSION: Bibasilar opacities most consistent with atelectasis. Cardiac enlargement without overt failure. TECHNICAL DOCUMENTATION: JOB ID: [id number] [employer]- All Rights Reserved Reading location - IP/workstation name: [email or web address]
[2018-01-03] MEDS ORDERED: MECLIZINE HCL 25 MG TABLET PO PRN (18:53)
[2018-01-03] MEDS: ASPIRIN 81 MG TABLET, ENT COATED PO SCH (22:22)
[2018-01-03] MEDS: MONTELUKAST SODIUM 10 MG TABLET PO SCH (22:22)
[2018-01-03] MEDS: SODIUM BICARBONATE 650 MG TABLET PO SCH (22:22)
[2018-01-03] MEDS: ATORVASTATIN CALCIUM 10 MG TABLET PO SCH (22:22)
[2018-01-03] MEDS: NORMAL SALINE 1000 ML 1,000 ML IV PRN (22:23)
[2018-01-04 06:03] LABS: HEMATOCRIT 30.2 % (36.0-47.0); HEMOGLOBIN 10.5 g/dL (12.0-15.5); MEAN CORPUSCULAR HEMOGLOBIN 31.1 pg (27.0-33.4); MEAN CORPUSCULAR HGB CONC 34.8 g/dL (32.0-36.0); MEAN CORPUSCULAR VOLUME 89 fl (80-97); PLATELET COUNT 189 10^3/uL (150-450); RED BLOOD COUNT 3.39 10^6/uL (3.72-5.28); RED CELL DISTRIBUTION WIDTH 13.9 % (11.5-14.0)
[2018-01-04 06:23] LABS: ANION GAP 10 (5-19); BLOOD UREA NITROGEN 24 mg/dL (7-20); CALCIUM 8.3 mg/dL (8.4-10.2); CARBON DIOXIDE 20 mmol/L (22-30); CHLORIDE 108 mmol/L (98-107); GLUCOSE 103 mg/dL (75-110); POTASSIUM 3.6 mmol/L (3.6-5.0); SODIUM 138.4 mmol/L (137-145)
[2018-01-04] MEDS: LANSOPRAZOLE 30 MG TAB.RAP.DR PO SCH (06:37)
--- NOTE | 2018-01-04 07:10 | PDOC PROGRESS REPORT ---
Subjective Progress Note for:: 01/04/18 Reason For Visit: RIGHT HIP ARTHRITIS 77-year-old white female postop day 3 right hip arthroplasty. Events for yesterday include discontinuation of morphine early in the morning because of concerns of oversedation and subsequent administration of Narcan later in the day. Patient demonstrated decreased renal function and a Batista catheter has been placed. Physical Exam Vital Signs: Temp Pulse Resp BP Pulse Ox 37.4 C 106 H 16 140/80 H 97 01/03/18 23:49 01/03/18 23:49 01/03/18 23:49 01/03/18 23:49 01/03/18 23:49 Intake & Output 01/03/18 01/04/18 01/05/18 06:59 06:59 06:59 Intake Total 2020 1390 Output Total 800 Balance 2020 590 Weight 103.6 kg 106.9 kg Physical Exam: Patient continues to seem overly sedated this morning. OxyContin has been discontinued. General appearance: PRESENT: no acute distress, obese Head exam: PRESENT: normocephalic Respiratory exam: PRESENT: unlabored Cardiovascular exam: PRESENT: RRR Pulses: PRESENT: +1 pedal pulses bilateral Extremities exam: PRESENT: other - Right hip dressing with some old drainage. Leg lengths are equal. Distal neurovascular examination is intact. Results Laboratory Results: 01/04/18 05:24 01/04/18 05:24 01/03/18 01/03/18 01/04/18 08:41 17:15 05:24 WBC 11.0 H RBC 3.39 L Hgb 10.5 L Hct 30.2 L MCV 89 MCH 31.1 MCHC 34.8 RDW 13.9 Plt Count 189 Carbonic Acid 1.25 HCO3/H2CO3 Ratio 14:1 ABG pH 7.26 L ABG pCO2 41.5 ABG pO2 53.8 L ABG HCO3 18.2 L ABG O2 Saturation 83.2 L ABG Base Excess -8.4 FiO2 ROOM AIR Sodium 136.7 L Potassium 3.7 Chloride 104 Carbon Dioxide 24 Anion Gap 9 BUN 26 H Creatinine 2.08 H Est GFR ( Amer) 28 L Est GFR (Non-Af Amer) 23 L Glucose 110 Calcium 8.5 01/04/18 05:24 WBC RBC Hgb Hct MCV MCH MCHC RDW Plt Count Carbonic Acid HCO3/H2CO3 Ratio ABG pH ABG pCO2 ABG pO2 ABG HCO3 ABG O2 Saturation ABG Base Excess FiO2 Sodium 138.4 Potassium 3.6 Chloride 108 H Carbon Dioxide 20 L Anion Gap 10 BUN 24 H Creatinine 1.71 H Est GFR ( Amer) 35 L Est GFR (Non-Af Amer) 29 L Glucose 103 Calcium 8.3 L Impressions: Pelvis X-Ray 01/01/18 11:22 IMPRESSION: Right hip arthroplasty. Chest X-Ray 01/03/18 00:00 IMPRESSION: Bibasilar opacities most consistent with atelectasis. Cardiac enlargement without overt failure. Status: Imported from PACS Assessment & Plan - Diagnosis (1) Hip joint replacement status Qualifiers: Laterality: right Qualified Code(s): Z96.641 - Presence of right artificial hip joint Is this a current diagnosis for this admission?: Yes Plan: Patient to continue to mobilize with physical therapy. Patient continues to be adamant about discharge home as opposed to a nursing home facility. At this point her functional capacity would not permit a discharge home. Her brother who is here to provide some care will be leaving tomorrow. - Time Time Spent with patient: 15-24 minutes Anticipated discharge: Other Within: Other
[2018-01-04 08:12] LABS: APPEARANCE,URINE CLOUDY; BILIRUBIN,URINE NEGATIVE (NEGATIVE); COLOR,URINE YELLOW; GLUCOSE, URINE NEGATIVE (NEGATIVE); KETONES,URINE NEGATIVE (NEGATIVE); LEUKOCYTE ESTERASE,URINE TRACE (NEGATIVE); NITRITE,URINE NEGATIVE (NEGATIVE); PROTEIN,URINE 100 mg/dL (NEGATIVE); URINE SPECIFIC GRAVITY 1.018; UROBILINOGEN,URINE NEGATIVE mg/dL (<2.0)
[2018-01-04] MEDS ORDERED: ACETAMINOPHEN 325 MG TABLET PO PRN (08:41)
--- NOTE | 2018-01-04 09:05 | PDOC PROGRESS REPORT ---
Subjective Progress Note for:: 01/04/18 Subjective:: Patient this morning is more alert awake and appropriate answering all questions Since all this morphine drips and ibuprofen and Valium was all stopped yesterday Patient was giving the Narcan Patient is also running a fever this morning Patient seen by the nephrology and put the Batista catheter Patient's denied any chest pain denied any shortness of the breath Patient's denied any nausea no vomiting She is currently on the Lovenox therapy for the DVT Discussed with the patient's do not think so can go home and patients agree to go to the rehab facility And I was several allergy to the antibiotic and according to the patient have allergy to the Keflex but only thing is a stomach upsets patients received IV Ancef in the OR and no other side effect with that medications will start the Ancef Reason For Visit: RIGHT HIP ARTHRITIS Physical Exam Vital Signs: Temp Pulse Resp BP Pulse Ox 102.1 F H 85 16 112/55 L 90 L 01/04/18 07:39 01/04/18 07:39 01/03/18 23:49 01/04/18 07:39 01/04/18 07:39 Intake & Output 01/03/18 01/04/18 01/05/18 06:59 06:59 06:59 Intake Total 2020 1390 Output Total 800 Balance 2020 590 Weight 103.6 kg 106.9 kg General appearance: PRESENT: no acute distress, well-developed, well-nourished Head exam: PRESENT: atraumatic, normocephalic Eye exam: PRESENT: conjunctiva pink, EOMI, PERRLA. ABSENT: scleral icterus Ear exam: PRESENT: normal external ear exam Mouth exam: PRESENT: moist, tongue midline Neck exam: PRESENT: full ROM. ABSENT: carotid bruit, JVD, lymphadenopathy, thyromegaly Respiratory exam: PRESENT: clear to auscultation scooby Cardiovascular exam: PRESENT: RRR. ABSENT: diastolic murmur, rubs, systolic murmur Pulses: PRESENT: normal dorsalis pedis pul, +2 pedal pulses bilateral Vascular exam: PRESENT: normal capillary refill GI/Abdominal exam: PRESENT: normal bowel sounds, soft. ABSENT: distended, guarding, mass, organolmegaly, rebound, tenderness Rectal exam: PRESENT: deferred Extremities exam: ABSENT: pedal edema Musculoskeletal exam: PRESENT: ambulatory Neurological exam: PRESENT: alert, awake, oriented to person, oriented to place , oriented to time, oriented to situation, CN II-XII grossly intact. ABSENT: motor sensory deficit Psychiatric exam: PRESENT: appropriate affect, normal mood. ABSENT: homicidal ideation, suicidal ideation Skin exam: PRESENT: dry, intact, warm. ABSENT: cyanosis, rash Results Laboratory Results: 01/04/18 05:24 01/04/18 05:24 01/03/18 01/03/18 01/04/18 08:41 17:15 05:24 WBC 11.0 H RBC 3.39 L Hgb 10.5 L Hct 30.2 L MCV 89 MCH 31.1 MCHC 34.8 RDW 13.9 Plt Count 189 Carbonic Acid 1.25 HCO3/H2CO3 Ratio 14:1 ABG pH 7.26 L ABG pCO2 41.5 ABG pO2 53.8 L ABG HCO3 18.2 L ABG O2 Saturation 83.2 L ABG Base Excess -8.4 FiO2 ROOM AIR Sodium 136.7 L Potassium 3.7 Chloride 104 Carbon Dioxide 24 Anion Gap 9 BUN 26 H Creatinine 2.08 H Est GFR ( Amer) 28 L Est GFR (Non-Af Amer) 23 L Glucose 110 Calcium 8.5 Urine Color Urine Appearance Urine pH Ur Specific [place] Urine Protein Urine Glucose (UA) Urine Ketones Urine Blood Urine Nitrite Ur Leukocyte Esterase Urine WBC (Auto) Urine RBC (Auto) 01/04/18 01/04/18 05:24 07:55 WBC RBC Hgb Hct MCV MCH MCHC RDW Plt Count Carbonic Acid HCO3/H2CO3 Ratio ABG pH ABG pCO2 ABG pO2 ABG HCO3 ABG O2 Saturation ABG Base Excess FiO2 Sodium 138.4 Potassium 3.6 Chloride 108 H Carbon Dioxide 20 L Anion Gap 10 BUN 24 H Creatinine 1.71 H Est GFR ( Amer) 35 L Est GFR (Non-Af Amer) 29 L Glucose 103 Calcium 8.3 L Urine Color YELLOW Urine Appearance CLOUDY Urine pH 5.0 Ur Specific [place] 1.018 Urine Protein 100 H Urine Glucose (UA) NEGATIVE Urine Ketones NEGATIVE Urine Blood MODERATE H Urine Nitrite NEGATIVE Ur Leukocyte Esterase TRACE H Urine WBC (Auto) 15 Urine RBC (Auto) 28 Impressions: Pelvis X-Ray 01/01/18 11:22 IMPRESSION: Right hip arthroplasty. Assessment & Plan - Diagnosis (1) Hip joint replacement status Qualifiers: Laterality: right Qualified Code(s): Z96.641 - Presence of right artificial hip joint Is this a current diagnosis for this admission?: Yes Plan: STABLE F/U WITH SURGERY (2) Hypertension Qualifiers: Hypertension type: essential hypertension Qualified Code(s): I10 - Essential (primary) hypertension Is this a current diagnosis for this admission?: Yes Plan: Patient's blood pressure is getting better currently hold all blood pressure medication (3) Chronic kidney disease Qualifiers: Chronic kidney disease stage: stage 3 (moderate) Qualified Code(s): N18.3 - Chronic kidney disease, stage 3 (moderate) Is this a current diagnosis for this admission?: Yes Plan: The patient's BUN and creatinine is improving (4) Congestive heart failure Qualifiers: Heart failure type: diastolic Heart failure chronicity: chronic Qualified Code(s): I50.32 - Chronic diastolic (congestive) heart failure Is this a current diagnosis for this admission?: Yes Plan: Currently all stable (5) Hyperlipidemia Qualifiers: Hyperlipidemia type: unspecified Qualified Code(s): E78.5 - Hyperlipidemia , unspecified Is this a current diagnosis for this admission?: Yes (6) Arthritis Is this a current diagnosis for this admission?: Yes (7) Coronary arteriosclerosis Is this a current diagnosis for this admission?: Yes Plan: Repeat the EKG today (8) Impaired fasting glucose Is this a current diagnosis for this admission?: Yes (9) Fever Qualifiers: Fever type: unspecified Qualified Code(s): R50.9 - Fever, unspecified Is this a current diagnosis for this admission?: Yes Plan: Will get the blood culture urine culture chest x-ray Start the patient on Ancef 1 g IV q. 8 - Time Time Spent with patient: 15-24 minutes Medications reviewed and adjusted accordingly: Yes Anticipated discharge: SNF Within: Other - Inpatient Certification Based on my medical assessment, after consideration of the patient's comorbidities, presenting symptoms, or acuity I expect that the services needed warrant INPATIENT care.: Yes I certify that my determination is in accordance with my understanding of Medicare's requirements for reasonable and necessary INPATIENT services [42 CFR 412.3e].: Yes Medical Necessity: Need Close Monitoring Due to Risk of Patient Decompensation, Need For IV Fluids, Need for IV Antibiotics Post Hospital Care: D/C [place] Documentation - Plan Summary Plan Summary: Discussed with the patient's nurses and discussed with the patient with all the plans patient was admitting so can go home due to the multiple comorbidity and patient does not have any good family support at home here patient is angry to go to the rehab
[2018-01-04 09:15] LABS: ALANINE AMINOTRANSFERASE 17 U/L (9-52); ALBUMIN 2.8 g/dL (3.5-5.0); ALKALINE PHOSPHATASE 74 U/L (38-126); ASPARTATE AMINO TRANSFERASE 23 U/L (14-36); BILIRUBIN,DIRECT 0.4 mg/dL (0.0-0.4); BILIRUBIN,TOTAL 0.7 mg/dL (0.2-1.3); TOTAL PROTEIN 5.6 g/dL (6.3-8.2)
--- NOTE | 2018-01-04 10:13 | RADIOLOGY REPORT (SQ) ---
EXAM DESCRIPTION: CHEST SINGLE VIEW COMPLETED DATE/TIME: 01/04/2018 8:57 am REASON FOR STUDY: FEVER AND SOB COMPARISON: None. EXAM PARAMETERS: NUMBER OF VIEWS: One view. TECHNIQUE: Single frontal radiographic view of the chest acquired. RADIATION DOSE: NA LIMITATIONS: None. FINDINGS: LUNGS AND PLEURA: Ill-defined opacification in the retrocardiac area on the left. The lef t hemidiaphragm is indistinct. MEDIASTINUM AND HILAR STRUCTURES: No masses. Contour normal. HEART AND VASCULAR STRUCTURES: Heart normal in size. Normal vasculature. BONES: No acute findings. HARDWARE: None in the chest. OTHER: No other significant finding. IMPRESSION: Cannot exclude left lower lobe pneumonia. TECHNICAL DOCUMENTATION: JOB ID: [id number] [employer]- All Rights Reserved Reading location - IP/workstation name: [email or web address]
--- NOTE | 2018-01-04 10:19 | PDOC PROGRESS REPORT ---
Subjective Progress Note for:: 01/04/18 Reason For Visit: Patient seen today. She is doing better than when I saw her yesterday. She does also feel better. However I note that she has spiked a fever of 102. Patient denies any history of feeling feverish, chills or rigors. No history of any coughing spells chest pains or shortness of breath. No history of any dysuria. No history of any skin lesions. Labs and medications were reviewed with the patient. I do note that she has had presley cultures and has been begun on IV Ancef. Physical Exam Vital Signs: Temp Pulse Resp BP Pulse Ox 102.1 F H 85 16 112/55 L 90 L 01/04/18 07:39 01/04/18 07:39 01/03/18 23:49 01/04/18 07:39 01/04/18 07:39 Intake & Output 01/03/18 01/04/18 01/05/18 06:59 06:59 06:59 Intake Total 2020 1390 Output Total 800 Balance 2020 590 Weight 103.6 kg 106.9 kg General appearance: PRESENT: no acute distress Respiratory exam: PRESENT: clear to auscultation scooby. ABSENT: crackles Cardiovascular exam: PRESENT: +S1, +S2, systolic murmur GI/Abdominal exam: PRESENT: distended - Mild. She feels gaseous., normal bowel sounds, soft. ABSENT: rebound, tenderness Extremities exam: PRESENT: pedal edema Neurological exam: PRESENT: alert, awake, oriented to person, oriented to place Skin exam: ABSENT: erythema, mottled, rash Results Laboratory Results: 01/04/18 05:24 01/04/18 05:24 01/03/18 01/04/18 01/04/18 17:15 05:24 05:24 WBC 11.0 H RBC 3.39 L Hgb 10.5 L Hct 30.2 L MCV 89 MCH 31.1 MCHC 34.8 RDW 13.9 Plt Count 189 Carbonic Acid 1.25 HCO3/H2CO3 Ratio 14:1 ABG pH 7.26 L ABG pCO2 41.5 ABG pO2 53.8 L ABG HCO3 18.2 L ABG O2 Saturation 83.2 L ABG Base Excess -8.4 FiO2 ROOM AIR Sodium 138.4 Potassium 3.6 Chloride 108 H Carbon Dioxide 20 L Anion Gap 10 BUN 24 H Creatinine 1.71 H Est GFR ( Amer) 35 L Est GFR (Non-Af Amer) 29 L Glucose 103 Calcium 8.3 L Total Bilirubin AST ALT Alkaline Phosphatase Total Protein Albumin Urine Color Urine Appearance Urine pH Ur Specific [place] Urine Protein Urine Glucose (UA) Urine Ketones Urine Blood Urine Nitrite Ur Leukocyte Esterase Urine WBC (Auto) Urine RBC (Auto) 01/04/18 01/04/18 05:24 07:55 WBC RBC Hgb Hct MCV MCH MCHC RDW Plt Count Carbonic Acid HCO3/H2CO3 Ratio ABG pH ABG pCO2 ABG pO2 ABG HCO3 ABG O2 Saturation ABG Base Excess FiO2 Sodium Potassium Chloride Carbon Dioxide Anion Gap BUN Creatinine Est GFR ( Amer) Est GFR (Non-Af Amer) Glucose Calcium Total Bilirubin 0.7 AST 23 ALT 17 Alkaline Phosphatase 74 Total Protein 5.6 L Albumin 2.8 L Urine Color YELLOW Urine Appearance CLOUDY Urine pH 5.0 Ur Specific [place] 1.018 Urine Protein 100 H Urine Glucose (UA) NEGATIVE Urine Ketones NEGATIVE Urine Blood MODERATE H Urine Nitrite NEGATIVE Ur Leukocyte Esterase TRACE H Urine WBC (Auto) 15 Urine RBC (Auto) 28 Impressions: Pelvis X-Ray 01/01/18 11:22 IMPRESSION: Right hip arthroplasty. Chest X-Ray 01/04/18 00:00 IMPRESSION: Cannot exclude left lower lobe pneumonia. Assessment & Plan - Diagnosis (1) MEDINA (acute kidney injury) Plan: Stable. Nonoliguric. She is having some fluid overload. We will adjust her p.o. Lasix. Continue gentle hydration. (2) Hypotension Plan: Currently resolved. Currently off all antihypertensives. Monitor. (3) Chronic kidney disease Qualifiers: Chronic kidney disease stage: stage 3 (moderate) Qualified Code(s): N18.3 - Chronic kidney disease, stage 3 (moderate) Is this a current diagnosis for this admission?: Yes Plan: With acute insult. Monitor. (4) Congestive heart failure Qualifiers: Heart failure type: diastolic Heart failure chronicity: chronic Qualified Code(s): I50.32 - Chronic diastolic (congestive) heart failure Is this a current diagnosis for this admission?: Yes Plan: Presently compensated and stable. Monitor. (5) Hypertension Qualifiers: Hypertension type: essential hypertension Qualified Code(s): I10 - Essential (primary) hypertension Is this a current diagnosis for this admission?: Yes Plan: Was hypotensive and now currently normotensive off all antihypertensives. Monitor. (6) Fever Qualifiers: Fever type: unspecified Qualified Code(s): R50.9 - Fever, unspecified Is this a current diagnosis for this admission?: Yes Plan: Has been pancultured and begun on antibiotics. As per Dr. Llamas and Dr. Castro.
[2018-01-04] MEDS: ENOXAPARIN SODIUM INJ 40 MG/0.4 ML DISP.SYRIN SUBCUT SCH (10:24)
[2018-01-04] MEDS: PRENATAL VITAMIN W DHA CAPSULE PO SCH (10:26)
[2018-01-04] MEDS: DOCUSATE SODIUM 100 MG CAPSULE PO SCH ×2 (10:27→18:04)
[2018-01-04] MEDS: GABAPENTIN 300 MG CAPSULE PO SCH ×2 (10:27→22:40)
[2018-01-04] MEDS: ALLOPURINOL 100 MG TABLET PO SCH (10:27)
[2018-01-04] MEDS: SENNOSIDES/DOCUSATE 8.6-50 MG 1 EACH TABLET PO SCH ×2 (10:27→18:04)
[2018-01-04] MEDS: FUROSEMIDE 20 MG TABLET PO SCH ×2 (10:27→18:05)
[2018-01-04] MEDS: SODIUM BICARBONATE 650 MG TABLET PO SCH ×2 (10:27→22:40)
[2018-01-04] MEDS: CEFAZOLIN 1 GM/D5W RTU 1 GM/50 ML RTUPB IV SCH ×2 (10:27→18:53)
[2018-01-04] MEDS: OMEGA-3 ACID ETHYL ESTERS 1 GM CAPSULE PO SCH (10:27)
[2018-01-04] MEDS: LEVOTHYROXINE SODIUM 0.075 MG TABLET PO SCH (10:28)
[2018-01-04] MEDS: PSYLLIUM SEED-SF 5.85 GM PACKET PO SCH (10:28)
[2018-01-04] MEDS: ESTROGENS,CONJUGATED 0.3 MG TABLET PO SCH (10:28)
[2018-01-04] MEDS: NYSTATIN/DEXAMETH/DIPHEN SUSP 120 ML PO SCH ×3 (10:31→18:05)
[2018-01-04] MEDS: MULTIVITAMIN TABLET PO SCH (10:41)
[2018-01-04] MEDS: POLYETHYLENE GLYCOL 3350 POWDER 17 GM/1 PACKET PO SCH ×2 (10:42→18:04)
--- NOTE | 2018-01-04 12:28 | EKG REPORT ---
SEVERITY:- BORDERLINE ECG - SINUS RHYTHM BORDERLINE LEFT AXIS DEVIATION BORDERLINE R WAVE PROGRESSION, ANTERIOR LEADS : Confirmed by: Zhanna Watson MD 04-Jan-2018 12:28:09
[2018-01-04] MEDS: NORMAL SALINE 1000 ML 1,000 ML IV PRN (14:12)
[2018-01-04 19:15] LABS: ARTERIAL BLOOD BASE EXCESS -7.9 mmol/L; ARTERIAL BLOOD FIO2 28%; ARTERIAL BLOOD H2CO3 0.98 mmol/L (1.05-1.35); ARTERIAL BLOOD O2 SATURATION 94.8 % (94-98); ARTERIAL BLOOD PCO2 32.6 mmHg (35-45); ARTERIAL BLOOD PH 7.33 (7.35-7.45)
[2018-01-04] MEDS: ATORVASTATIN CALCIUM 10 MG TABLET PO SCH (22:41)
[2018-01-04] MEDS: MONTELUKAST SODIUM 10 MG TABLET PO SCH (22:42)
[2018-01-04] MEDS: FAMOTIDINE 20 MG TABLET PO SCH (22:43)
[2018-01-04] MEDS: CEFEPIME 1 GM/D5W RTU 1 GM/50 ML RTUPB IV SCH (22:45)
[2018-01-04] MEDS: ASPIRIN 81 MG TABLET, ENT COATED PO SCH (22:48)
[2018-01-05 06:22] LABS: ABSOLUTE BASOPHILS # (AUTO) 0.1 10^3/uL (0.0-0.2); ABSOLUTE EOSINOPHILS # (AUTO) 0.1 10^3/uL (0.0-0.6); BASOPHILS % (AUTO) 0.7 % (0-2); EOSINOPHILS % (AUTO) 0.6 % (0-6); HEMATOCRIT 30.5 % (36.0-47.0); HEMOGLOBIN 10.3 g/dL (12.0-15.5); LYMPHOCYTES % (AUTO) 9.7 % (13-45); MEAN CORPUSCULAR HEMOGLOBIN 30.2 pg (27.0-33.4); MEAN CORPUSCULAR HGB CONC 33.9 g/dL (32.0-36.0); MEAN CORPUSCULAR VOLUME 89 fl (80-97); MONOCYTES % (AUTO) 10.1 % (3-13); PLATELET COUNT 277 10^3/uL (150-450); RED BLOOD COUNT 3.42 10^6/uL (3.72-5.28); RED CELL DISTRIBUTION WIDTH 13.9 % (11.5-14.0); SEGMENTED NEUTROPHILS % (AUTO) 78.9 % (42-78); TOTAL CELLS COUNTED % (AUTO) 100 %; WHITE BLOOD COUNT 10.1 10^3/uL (4.0-10.5)
[2018-01-05] MEDS: LANSOPRAZOLE 30 MG TAB.RAP.DR PO SCH (06:40)
[2018-01-05 06:44] LABS: ANION GAP 13 (5-19); BLOOD UREA NITROGEN 25 mg/dL (7-20); CALCIUM 8.3 mg/dL (8.4-10.2); CARBON DIOXIDE 17 mmol/L (22-30); CHLORIDE 107 mmol/L (98-107); GLUCOSE 106 mg/dL (75-110); POTASSIUM 3.5 mmol/L (3.6-5.0); SODIUM 136.6 mmol/L (137-145)
[2018-01-05] MEDS: NORMAL SALINE 1000 ML 1,000 ML IV PRN (07:37)
--- NOTE | 2018-01-05 08:35 | PDOC PROGRESS REPORT ---
Subjective Progress Note for:: 01/05/18 Reason For Visit: RIGHT HIP ARTHRITIS Obese middle-aged white female lying in a hospital bed still somewhat somnolent presumably from overmedication. T-max last night of 38.9. Patient's been started on IV antibiotics for this with a presumed pulmonary etiology. Physical Exam Vital Signs: Temp Pulse Resp BP Pulse Ox 37.8 C 99 18 149/66 H 94 01/04/18 21:29 01/05/18 00:00 01/05/18 00:00 01/05/18 00:00 01/05/18 00:00 Intake & Output 01/04/18 01/05/18 01/06/18 06:59 06:59 06:59 Intake Total 1390 2645 Output Total 800 650 Balance 590 1994 Weight 106.9 kg 107.1 kg General appearance: PRESENT: no acute distress, obese Respiratory exam: PRESENT: unlabored Cardiovascular exam: PRESENT: RRR Pulses: PRESENT: +1 pedal pulses bilateral Vascular exam: PRESENT: normal capillary refill Extremities exam: PRESENT: other - Right hip dressing is changed today. There is a modest amount of serous drainage. Leg lengths are equal. Distal neurovascular examination is intact. Neurological exam: PRESENT: alert, awake, oriented to person, oriented to place , oriented to time, oriented to situation. ABSENT: motor sensory deficit Psychiatric exam: PRESENT: appropriate affect, normal mood. ABSENT: homicidal ideation, suicidal ideation Skin exam: PRESENT: dry, intact, warm. ABSENT: cyanosis, rash Results Laboratory Results: 01/05/18 05:24 01/05/18 05:24 01/04/18 01/04/18 01/05/18 05:24 19:04 05:24 WBC RBC Hgb Hct MCV MCH MCHC RDW Plt Count Seg Neutrophils % Lymphocytes % Monocytes % Eosinophils % Basophils % Absolute Neutrophils Absolute Lymphocytes Absolute Monocytes Absolute Eosinophils Absolute Basophils Carbonic Acid 0.98 L HCO3/H2CO3 Ratio 17:1 ABG pH 7.33 L ABG pCO2 32.6 L ABG pO2 77.0 L ABG HCO3 17.0 L ABG O2 Saturation 94.8 ABG Base Excess -7.9 FiO2 28% Sodium 136.6 L Potassium 3.5 L Chloride 107 Carbon Dioxide 17 L Anion Gap 13 BUN 25 H Creatinine 1.57 H Est GFR ( Amer) 39 L Est GFR (Non-Af Amer) 32 L Glucose 106 Calcium 8.3 L Magnesium 2.0 Total Bilirubin 0.7 AST 23 ALT 17 Alkaline Phosphatase 74 Total Protein 5.6 L Albumin 2.8 L 01/05/18 05:24 WBC 10.1 RBC 3.42 L Hgb 10.3 L Hct 30.5 L MCV 89 MCH 30.2 MCHC 33.9 RDW 13.9 Plt Count 277 Seg Neutrophils % 78.9 H Lymphocytes % 9.7 L Monocytes % 10.1 Eosinophils % 0.6 Basophils % 0.7 Absolute Neutrophils 8.0 Absolute Lymphocytes 1.0 Absolute Monocytes 1.0 Absolute Eosinophils 0.1 Absolute Basophils 0.1 Carbonic Acid HCO3/H2CO3 Ratio ABG pH ABG pCO2 ABG pO2 ABG HCO3 ABG O2 Saturation ABG Base Excess FiO2 Sodium Potassium Chloride Carbon Dioxide Anion Gap BUN Creatinine Est GFR ( Amer) Est GFR (Non-Af Amer) Glucose Calcium Magnesium Total Bilirubin AST ALT Alkaline Phosphatase Total Protein Albumin Impressions: Pelvis X-Ray 01/01/18 11:22 IMPRESSION: Right hip arthroplasty. Chest X-Ray 01/04/18 00:00 IMPRESSION: Cannot exclude left lower lobe pneumonia. Status: Imported from PACS Assessment & Plan - Diagnosis (1) Hip joint replacement status Qualifiers: Laterality: right Qualified Code(s): Z96.641 - Presence of right artificial hip joint Is this a current diagnosis for this admission?: Yes Plan: 77-year-old female status post right hip arthroplasty. Plan for continue to decrease her narcotic medication. Discontinue the Lovenox and the Batista catheter. Dressing change to the right hip as needed. Continue efforts to mobilize anticipate [facility] facility placement early next week. - Time Time Spent with patient: 15-24 minutes Anticipated discharge: SNF Within: Other
[2018-01-05] MEDS: ONDANSETRON HCL INJ/PF 4 MG/2 ML SDV IV PRN (09:25)
[2018-01-05] MEDS: CEFEPIME 1 GM/D5W RTU 1 GM/50 ML RTUPB IV SCH ×2 (10:02→22:45)
[2018-01-05] MEDS: PRENATAL VITAMIN W DHA CAPSULE PO SCH (10:02)
[2018-01-05] MEDS: SENNOSIDES/DOCUSATE 8.6-50 MG 1 EACH TABLET PO SCH ×2 (10:04→17:00)
[2018-01-05] MEDS: MULTIVITAMIN TABLET PO SCH (10:04)
[2018-01-05] MEDS: POLYETHYLENE GLYCOL 3350 POWDER 17 GM/1 PACKET PO SCH (10:04)
[2018-01-05] MEDS: LEVOTHYROXINE SODIUM 0.075 MG TABLET PO SCH (10:04)
[2018-01-05] MEDS: ESTROGENS,CONJUGATED 0.3 MG TABLET PO SCH (10:04)
[2018-01-05] MEDS: SODIUM BICARBONATE 650 MG TABLET PO SCH ×2 (10:04→22:33)
[2018-01-05] MEDS: ALLOPURINOL 100 MG TABLET PO SCH (10:04)
[2018-01-05] MEDS: GABAPENTIN 300 MG CAPSULE PO SCH ×2 (10:04→22:33)
[2018-01-05] MEDS: FUROSEMIDE 20 MG TABLET PO SCH ×2 (10:05→17:00)
[2018-01-05] MEDS: NYSTATIN/DEXAMETH/DIPHEN SUSP 120 ML PO SCH ×3 (10:05→17:00)
[2018-01-05] MEDS: OMEGA-3 ACID ETHYL ESTERS 1 GM CAPSULE PO SCH (10:05)
[2018-01-05] MEDS: PSYLLIUM SEED-SF 5.85 GM PACKET PO SCH (10:05)
[2018-01-05] MEDS: DOCUSATE SODIUM 100 MG CAPSULE PO SCH ×2 (10:05→17:00)
[2018-01-05] MEDS: ENOXAPARIN SODIUM INJ 40 MG/0.4 ML DISP.SYRIN SUBCUT SCH (10:06)
--- NOTE | 2018-01-05 12:53 | PDOC PROGRESS REPORT ---
Subjective Progress Note for:: 01/05/18 Subjective:: Patient is feeling better still little tired and fatigue Patient was more confused yesterday Patient's was started with the IV cefepime and the patient's white count is stable and patient fever is also coming down Patient still did not walk yet Reason For Visit: RIGHT HIP ARTHRITIS Physical Exam Vital Signs: Temp Pulse Resp BP Pulse Ox 98.7 F 112 H 18 109/65 91 L 01/05/18 12:09 01/05/18 12:09 01/05/18 12:09 01/05/18 12:09 01/05/18 12:09 Intake & Output 01/04/18 01/05/18 01/06/18 06:59 06:59 06:59 Intake Total 1390 2695 50 Output Total 800 650 Balance 590 2045 50 Weight 106.9 kg 107.1 kg General appearance: PRESENT: no acute distress, well-developed, well-nourished Head exam: PRESENT: atraumatic, normocephalic Eye exam: PRESENT: conjunctiva pink, EOMI, PERRLA. ABSENT: scleral icterus Ear exam: PRESENT: normal external ear exam Mouth exam: PRESENT: moist, tongue midline Neck exam: PRESENT: full ROM. ABSENT: carotid bruit, JVD, lymphadenopathy, thyromegaly Respiratory exam: PRESENT: clear to auscultation scooby Cardiovascular exam: PRESENT: RRR. ABSENT: diastolic murmur, rubs, systolic murmur Pulses: PRESENT: normal dorsalis pedis pul, +2 pedal pulses bilateral Vascular exam: PRESENT: normal capillary refill GI/Abdominal exam: PRESENT: normal bowel sounds, soft. ABSENT: distended, guarding, mass, organolmegaly, rebound, tenderness Rectal exam: PRESENT: deferred Neurological exam: PRESENT: alert, awake, oriented to person, oriented to place , oriented to time, oriented to situation, CN II-XII grossly intact. ABSENT: motor sensory deficit Psychiatric exam: PRESENT: appropriate affect, normal mood. ABSENT: homicidal ideation, suicidal ideation Skin exam: PRESENT: dry, intact, warm. ABSENT: cyanosis, rash Results Laboratory Results: 01/05/18 05:24 01/05/18 05:24 01/04/18 01/05/18 01/05/18 19:04 05:24 05:24 WBC 10.1 RBC 3.42 L Hgb 10.3 L Hct 30.5 L MCV 89 MCH 30.2 MCHC 33.9 RDW 13.9 Plt Count 277 Seg Neutrophils % 78.9 H Lymphocytes % 9.7 L Monocytes % 10.1 Eosinophils % 0.6 Basophils % 0.7 Absolute Neutrophils 8.0 Absolute Lymphocytes 1.0 Absolute Monocytes 1.0 Absolute Eosinophils 0.1 Absolute Basophils 0.1 Carbonic Acid 0.98 L HCO3/H2CO3 Ratio 17:1 ABG pH 7.33 L ABG pCO2 32.6 L ABG pO2 77.0 L ABG HCO3 17.0 L ABG O2 Saturation 94.8 ABG Base Excess -7.9 FiO2 28% Sodium 136.6 L Potassium 3.5 L Chloride 107 Carbon Dioxide 17 L Anion Gap 13 BUN 25 H Creatinine 1.57 H Est GFR ( Amer) 39 L Est GFR (Non-Af Amer) 32 L Glucose 106 Calcium 8.3 L Magnesium 2.0 Impressions: Pelvis X-Ray 01/01/18 11:22 IMPRESSION: Right hip arthroplasty. Chest X-Ray 01/04/18 00:00 IMPRESSION: Cannot exclude left lower lobe pneumonia. Assessment & Plan - Diagnosis (1) Hip joint replacement status Qualifiers: Laterality: right Qualified Code(s): Z96.641 - Presence of right artificial hip joint Is this a current diagnosis for this admission?: Yes Plan: STABLE F/U WITH SURGERY (2) Hypertension Qualifiers: Hypertension type: essential hypertension Qualified Code(s): I10 - Essential (primary) hypertension Is this a current diagnosis for this admission?: Yes Plan: Continues to hold all blood pressure medication (3) Chronic kidney disease Qualifiers: Chronic kidney disease stage: stage 3 (moderate) Qualified Code(s): N18.3 - Chronic kidney disease, stage 3 (moderate) Is this a current diagnosis for this admission?: Yes Plan: The patient's BUN and creatinine is improving (4) Congestive heart failure Qualifiers: Heart failure type: diastolic Heart failure chronicity: chronic Qualified Code(s): I50.32 - Chronic diastolic (congestive) heart failure Is this a current diagnosis for this admission?: Yes Plan: Currently all stable (5) Hyperlipidemia Qualifiers: Hyperlipidemia type: unspecified Qualified Code(s): E78.5 - Hyperlipidemia , unspecified Is this a current diagnosis for this admission?: Yes (6) Arthritis Is this a current diagnosis for this admission?: Yes (7) Coronary arteriosclerosis Is this a current diagnosis for this admission?: Yes Plan: Repeat the EKG today (8) Impaired fasting glucose Is this a current diagnosis for this admission?: Yes (9) Fever Qualifiers: Fever type: unspecified Qualified Code(s): R50.9 - Fever, unspecified Is this a current diagnosis for this admission?: Yes Plan: Most likely a pulmonary origin will continues to IV antibiotic respiratory treatment continues to wait for the all culture - Time Time Spent with patient: 25-34 minutes Medications reviewed and adjusted accordingly: Yes Anticipated discharge: SNF Within: Other - Inpatient Certification Based on my medical assessment, after consideration of the patient's comorbidities, presenting symptoms, or acuity I expect that the services needed warrant INPATIENT care.: Yes I certify that my determination is in accordance with my understanding of Medicare's requirements for reasonable and necessary INPATIENT services [42 CFR 412.3e].: Yes Medical Necessity: Need Close Monitoring Due to Risk of Patient Decompensation, Need For IV Fluids, Need for IV Antibiotics Post Hospital Care: D/C Hotel Manager Documentation - Plan Summary Plan Summary: Very extensive discussed with the patient's to get the physical therapy discussed the case with the Dr. Llamas continues to be monitored in the weekend and the patient in the hospital and discussed with the Dr. Souza Continues to sodium bicarb replace the potassium
[2018-01-05] MEDS ORDERED: LIDOCAINE 1% INJ-PF (10 MG/ML) 30 ML SDV INJ ONE (14:00)
--- NOTE | 2018-01-05 14:06 | OPERATIVE REPORT E ---
Operative Report NAME: TIM ORELLANA : 1940 AGE: 77Y DATE OF SURGERY: 01/05/2018 ROOM: 429 PREOPERATIVE DIAGNOSIS: POOR VEINS FOR INTRAVENOUS ACCESS. POST OPERATIVE DIAGNOSIS:SAME OPERATION: PLACEMENT OF CENTRAL LINE TO THE LEFT INTERNAL JUGULAR VEIN UNDER ULTRASOUND GUIDANCE. SURGEON: LOIS SYLVESTER M.D. ANESTHESIA: Local. PROCEDURE: The patient was placed in Trendelenburg position and left neck prepped and draped in the usual sterile fashion. With use of the ultrasound, the left anterior jugular vein was identified, and local anesthesia infiltrated in the skin. The left internal jugular vein was then punctured and guidewire passed through the needle toward the area of the superior vena cava. The puncture site was then dilated. The needle was removed and dilator placed and removed. A triple lumen catheter was inserted through the guidewire a distance of about 16 cm. All the 3 ports aspirated easily and infused saline easily. The catheter was then anchored to the skin with 3-0 silk. A Biopatch was placed at the insertion site and transparent sterile dressing was then placed over the Biopatch and catheter. The patient tolerated the procedure well. A chest x-ray will be obtained for placement and to rule out any pneumothorax. DICTATING PHYSICIAN: LOIS SYLVESTER M.D. [id number] PHY#: [id number] ID: [id number] JOB#: [id number] ACCT: [id number] cc:LOIS SYLVESTER M.D. > MTDD
--- NOTE | 2018-01-05 15:10 | RADIOLOGY REPORT (SQ) ---
EXAM DESCRIPTION: CHEST SINGLE VIEW COMPLETED DATE/TIME: 01/05/2018 2:21 pm REASON FOR STUDY: CHECK CENTRAL LINE PLACEMENT COMPARISON: 01/04/2018 NUMBER OF VIEWS: One view. TECHNIQUE: Single frontal radiographic image of the chest acquired. LIMITATIONS: None. FINDINGS: LUNGS AND PLEURA: Low lung volumes. No pneumothorax. MEDIASTINUM AND HEART: Stable heart size and mediastinal structures. SUPPORT DEVICES: Left IJ central line with tip overlying SVC. BONY STRUCTURES: No acute findings. HARDWARE: None. OTHER: No other significant finding. IMPRESSION: Appropriate position of central line. No pneumothorax. Reading location - IP/workstation name: [email or web address]
[2018-01-05] MEDS ORDERED: POTASSIUM CHLORIDE 10 MEQ CAPSULE.ER PO ONE (18:00)
[2018-01-05] MEDS: MONTELUKAST SODIUM 10 MG TABLET PO SCH (22:25)
[2018-01-05] MEDS: FAMOTIDINE 20 MG TABLET PO SCH (22:25)
[2018-01-05] MEDS: ATORVASTATIN CALCIUM 10 MG TABLET PO SCH (22:32)
[2018-01-05] MEDS: ASPIRIN 81 MG TABLET, ENT COATED PO SCH (22:32)
[2018-01-05] MEDS: NORMAL SALINE 10 ML SDV (SCHEDULED) IV SCH (22:33)
[2018-01-06] MEDS: LANSOPRAZOLE 30 MG TAB.RAP.DR PO SCH (05:08)
[2018-01-06] MEDS: NORMAL SALINE 1000 ML 1,000 ML IV PRN ×2 (05:10→21:04)
[2018-01-06] MEDS: NORMAL SALINE 10 ML SDV (SCHEDULED) IV SCH ×3 (05:33→21:00)
[2018-01-06 06:42] LABS: HEMATOCRIT 29.7 % (36.0-47.0); HEMOGLOBIN 10.2 g/dL (12.0-15.5); MEAN CORPUSCULAR HEMOGLOBIN 30.8 pg (27.0-33.4); MEAN CORPUSCULAR HGB CONC 34.4 g/dL (32.0-36.0); MEAN CORPUSCULAR VOLUME 90 fl (80-97); PLATELET COUNT 270 10^3/uL (150-450); RED BLOOD COUNT 3.32 10^6/uL (3.72-5.28); RED CELL DISTRIBUTION WIDTH 14.1 % (11.5-14.0); WHITE BLOOD COUNT 8.3 10^3/uL (4.0-10.5)
[2018-01-06 07:07] LABS: ANION GAP 9 (5-19); BLOOD UREA NITROGEN 29 mg/dL (7-20); CALCIUM 8.1 mg/dL (8.4-10.2); CARBON DIOXIDE 21 mmol/L (22-30); CHLORIDE 107 mmol/L (98-107); GLUCOSE 116 mg/dL (75-110); POTASSIUM 3.3 mmol/L (3.6-5.0); SODIUM 136.9 mmol/L (137-145)
[2018-01-06] MEDS: ONDANSETRON HCL INJ/PF 4 MG/2 ML SDV IV PRN (09:20)
[2018-01-06] MEDS ORDERED: POTASSI CL 20 MEQ/50 ML RIDER 20 MEQ/50 ML RTUPB IV ONE (09:27)
[2018-01-06] MEDS ORDERED: GABAPENTIN 300 MG CAPSULE PO SCH (09:28)
[2018-01-06] MEDS ORDERED: POLYETHYLENE GLYCOL 3350 POWDER 17 GM/1 PACKET PO SCH (10:00)
--- NOTE | 2018-01-06 10:14 | RADIOLOGY REPORT (SQ) ---
EXAM DESCRIPTION: KUB/ABDOMEN (SINGLE VIEW) COMPLETED DATE/TIME: 01/06/2018 9:52 am REASON FOR STUDY: Large green emesis M16.11 UNILATERAL PRIMARY OSTEOARTHRITIS, RIGHT HIP COMPARISON: None. NUMBER OF VIEWS: One view. TECHNIQUE: Supine radiographic image of the abdomen acquired. LIMITATIONS: None. FINDINGS: BOWEL GAS PATTERN: Marked bowel dilation which appears to involve primarily the colon. Th ere is also mild small bowel dilation. CALCIFICATIONS: No suspicious calcifications. SOFT TISSUES: No gross mass or suggestion of organomegaly. HARDWARE: Right hip prosthesis. BONES: No acute fracture. No worrisome bone lesions. OTHER: No other significant finding. IMPRESSION: MARKED BOWEL DILATION, PRIMARILY INVOLVING THE COLON, AND ALSO MILD SMALL BOWEL DILATION . SEVERE ILEUS VERSUS OBSTRUCTION. TECHNICAL DOCUMENTATION: JOB ID: [id number] [employer]- All Rights Reserved Reading location - IP/workstation name: [email or web address]
--- NOTE | 2018-01-06 10:14 | RADIOLOGY REPORT (SQ) ---
EXAM DESCRIPTION: CHEST SINGLE VIEW COMPLETED DATE/TIME: 01/06/2018 9:52 am REASON FOR STUDY: wheezing COMPARISON: 01/05/2018. EXAM PARAMETERS: NUMBER OF VIEWS: One view. TECHNIQUE: Single frontal radiographic view of the chest acquired. RADIATION DOSE: NA LIMITATIONS: None. FINDINGS: LUNGS AND PLEURA: Mild basilar atelectasis. No focal infiltrates, masses or pneumothorax. No pleural effusion. MEDIASTINUM AND HILAR STRUCTURES: No masses. Contour normal. HEART AND VASCULAR STRUCTURES: Heart normal in size. Normal vasculature. BONES: No acute findings. HARDWARE: Central line. OTHER: No other significant finding. IMPRESSION: STABLE APPEARANCE. NO ACUTE RADIOGRAPHIC FINDING IN THE CHEST. TECHNICAL DOCUMENTATION: JOB ID: [id number] [employer]- All Rights Reserved Reading location - IP/workstation name: [email or web address]
--- NOTE | 2018-01-06 10:41 | PDOC PROGRESS REPORT ---
Subjective Progress Note for:: 01/06/18 Subjective:: Patient complaining of nausea and vomiting Patients threw up this morning Patient still constipated Patient's denied any chest pain denied any shortness of the breath Patient is more alert awake today Patient blood pressure is stable Patient's denied any pain No fever no chills Reason For Visit: RIGHT HIP ARTHRITIS Physical Exam Vital Signs: Temp Pulse Resp BP Pulse Ox 98.3 F 112 H 20 105/58 L 92 01/06/18 07:33 01/06/18 07:33 01/06/18 07:33 01/06/18 07:33 01/06/18 07:33 Intake & Output 01/05/18 01/06/18 01/07/18 06:59 06:59 05:59 Intake Total 2695 1556 Output Total 650 600 Balance 2045 956 Weight 107.1 kg 115.1 kg General appearance: PRESENT: no acute distress, well-developed, well-nourished Head exam: PRESENT: atraumatic, normocephalic Eye exam: PRESENT: conjunctiva pink, EOMI, PERRLA. ABSENT: scleral icterus Ear exam: PRESENT: normal external ear exam Mouth exam: PRESENT: moist, tongue midline Neck exam: PRESENT: full ROM. ABSENT: carotid bruit, JVD, lymphadenopathy, thyromegaly Respiratory exam: PRESENT: decreased breath sounds Cardiovascular exam: PRESENT: RRR. ABSENT: diastolic murmur, rubs, systolic murmur Pulses: PRESENT: normal dorsalis pedis pul, +2 pedal pulses bilateral Vascular exam: PRESENT: normal capillary refill GI/Abdominal exam: PRESENT: distended, hypoactive bowel sounds, soft. ABSENT: guarding, mass, organolmegaly, rebound, tenderness Rectal exam: PRESENT: deferred Extremities exam: PRESENT: pedal edema Neurological exam: PRESENT: alert, awake, oriented to person, oriented to place , oriented to time, oriented to situation, CN II-XII grossly intact. ABSENT: motor sensory deficit Psychiatric exam: PRESENT: appropriate affect, normal mood. ABSENT: homicidal ideation, suicidal ideation Skin exam: PRESENT: dry, intact, warm. ABSENT: cyanosis, rash Results Laboratory Results: 01/06/18 06:15 01/06/18 06:15 01/06/18 01/06/18 06:15 06:15 WBC 8.3 RBC 3.32 L Hgb 10.2 L Hct 29.7 L MCV 90 MCH 30.8 MCHC 34.4 RDW 14.1 H Plt Count 270 Sodium 136.9 L Potassium 3.3 L Chloride 107 Carbon Dioxide 21 L Anion Gap 9 BUN 29 H Creatinine 1.41 H Est GFR ( Amer) 44 L Est GFR (Non-Af Amer) 36 L Glucose 116 H Calcium 8.1 L Magnesium 2.0 Impressions: Pelvis X-Ray 01/01/18 11:22 IMPRESSION: Right hip arthroplasty. Chest X-Ray 01/06/18 00:00 IMPRESSION: STABLE APPEARANCE. NO ACUTE RADIOGRAPHIC FINDING IN THE CHEST. KUB X-Ray 01/06/18 07:51 IMPRESSION: MARKED BOWEL DILATION, PRIMARILY INVOLVING THE COLON, AND ALSO MILD SMALL BOWEL DILATION. SEVERE ILEUS VERSUS OBSTRUCTION. Assessment & Plan - Diagnosis (1) Hip joint replacement status Qualifiers: Laterality: right Qualified Code(s): Z96.641 - Presence of right artificial hip joint Is this a current diagnosis for this admission?: Yes Plan: Continues to follow with the orthopedic surgery (2) Hypertension Qualifiers: Hypertension type: essential hypertension Qualified Code(s): I10 - Essential (primary) hypertension Is this a current diagnosis for this admission?: Yes Plan: Currently all stable (3) Chronic kidney disease Qualifiers: Chronic kidney disease stage: stage 3 (moderate) Qualified Code(s): N18.3 - Chronic kidney disease, stage 3 (moderate) Is this a current diagnosis for this admission?: Yes Plan: All improving replaced IV potassium (4) Congestive heart failure Qualifiers: Heart failure type: diastolic Heart failure chronicity: chronic Qualified Code(s): I50.32 - Chronic diastolic (congestive) heart failure Is this a current diagnosis for this admission?: Yes Plan: We consult the cardiology (5) Hyperlipidemia Qualifiers: Hyperlipidemia type: unspecified Qualified Code(s): E78.5 - Hyperlipidemia , unspecified Is this a current diagnosis for this admission?: Yes (6) Arthritis Is this a current diagnosis for this admission?: Yes (7) Coronary arteriosclerosis Is this a current diagnosis for this admission?: Yes Plan: Repeat the EKG today (8) Impaired fasting glucose Is this a current diagnosis for this admission?: Yes Plan: check bs (9) Fever Qualifiers: Fever type: unspecified Qualified Code(s): R50.9 - Fever, unspecified Is this a current diagnosis for this admission?: Yes Plan: Patient on culture is negative possible pulmonary (10) Ileus Is this a current diagnosis for this admission?: Yes Plan: Postop ileus versus obstructions We will consult the general surgery Discussed with the surgery - Time Time Spent with patient: 25-34 minutes Medications reviewed and adjusted accordingly: Yes Anticipated discharge: SNF, Other Within: Other - Inpatient Certification Based on my medical assessment, after consideration of the patient's comorbidities, presenting symptoms, or acuity I expect that the services needed warrant INPATIENT care.: Yes I certify that my determination is in accordance with my understanding of Medicare's requirements for reasonable and necessary INPATIENT services [42 CFR 412.3e].: Yes Medical Necessity: Need Close Monitoring Due to Risk of Patient Decompensation, Need for IV Antibiotics Post Hospital Care: D/C [employer] Applications Developer Documentation - Plan Summary Plan Summary: We consulted general surgery Very extensive discussed with the patient and her brother regarding the patient' s current conditions Patient on multiple comorbidity Patient's really not making any progress with physical therapy Patient is refused for couple of times for physical therapy and unable to do that Patients probably developed the ileus with some constipations
[2018-01-06] MEDS: MULTIVITAMIN TABLET PO SCH (10:49)
[2018-01-06] MEDS: LEVOTHYROXINE SODIUM 0.075 MG TABLET PO SCH (10:49)
[2018-01-06] MEDS: OMEGA-3 ACID ETHYL ESTERS 1 GM CAPSULE PO SCH (10:49)
[2018-01-06] MEDS: SENNOSIDES/DOCUSATE 8.6-50 MG 1 EACH TABLET PO SCH (10:49)
[2018-01-06] MEDS: FUROSEMIDE INJ/PF 20 MG/2 ML SDV IV SCH ×2 (10:50→21:00)
[2018-01-06] MEDS: SODIUM BICARBONATE 650 MG TABLET PO SCH ×2 (10:50→20:59)
[2018-01-06] MEDS: PSYLLIUM SEED-SF 5.85 GM PACKET PO SCH ×2 (10:50→17:53)
[2018-01-06] MEDS: DOCUSATE SODIUM 100 MG CAPSULE PO SCH (10:50)
[2018-01-06] MEDS: ALLOPURINOL 100 MG TABLET PO SCH (10:50)
[2018-01-06] MEDS: CEFEPIME 1 GM/D5W RTU 1 GM/50 ML RTUPB IV SCH ×2 (10:51→21:04)
[2018-01-06] MEDS: NYSTATIN/DEXAMETH/DIPHEN SUSP 120 ML PO SCH ×3 (10:51→17:50)
[2018-01-06] MEDS: GABAPENTIN 100 MG CAPSULE PO SCH ×2 (10:52→20:59)
[2018-01-06] MEDS: LEVALBUTEROL HCL NEB 1.25 MG/3 ML AMPUL NEB PRN (11:27)
[2018-01-06] MEDS: ENOXAPARIN SODIUM INJ 40 MG/0.4 ML DISP.SYRIN SUBCUT SCH (13:03)
--- NOTE | 2018-01-06 14:23 | PDOC PROGRESS REPORT ---
Subjective Progress Note for:: 01/06/18 Subjective:: Patient with some nausea and vomiting. X-rays of the pelvis shows she is constipated. Vital signs are currently stable but a cardiology consult has been placed. Patient was on the commode when I came to visit her. She was straight cathed last night but now is urinating voluntarily. Reason For Visit: RIGHT HIP ARTHRITIS Physical Exam Vital Signs: Temp Pulse Resp BP Pulse Ox 36.4 C 110 H 20 130/59 H 92 01/06/18 11:19 01/06/18 11:27 01/06/18 11:27 01/06/18 11:19 01/06/18 11:27 Intake & Output 01/05/18 01/06/18 01/07/18 06:59 06:59 05:59 Intake Total 2695 1556 Output Total 650 600 Balance 2045 956 Weight 107.1 kg 115.1 kg Adult Front & Back Image: 1 - Incision is dry clean and intact. Limb lengths are grossly equal. She is neurovascular intact distally with negative Homans sign Results Laboratory Results: 01/06/18 06:15 01/06/18 06:15 01/06/18 01/06/18 06:15 06:15 WBC 8.3 RBC 3.32 L Hgb 10.2 L Hct 29.7 L MCV 90 MCH 30.8 MCHC 34.4 RDW 14.1 H Plt Count 270 Sodium 136.9 L Potassium 3.3 L Chloride 107 Carbon Dioxide 21 L Anion Gap 9 BUN 29 H Creatinine 1.41 H Est GFR ( Amer) 44 L Est GFR (Non-Af Amer) 36 L Glucose 116 H Calcium 8.1 L Magnesium 2.0 Impressions: Pelvis X-Ray 01/01/18 11:22 IMPRESSION: Right hip arthroplasty. Chest X-Ray 01/06/18 00:00 IMPRESSION: STABLE APPEARANCE. NO ACUTE RADIOGRAPHIC FINDING IN THE CHEST. KUB X-Ray 01/06/18 07:51 IMPRESSION: MARKED BOWEL DILATION, PRIMARILY INVOLVING THE COLON, AND ALSO MILD SMALL BOWEL DILATION. SEVERE ILEUS VERSUS OBSTRUCTION. Status: Image reviewed by me Assessment & Plan - Diagnosis (1) Hip joint replacement status Qualifiers: Laterality: right Qualified Code(s): Z96.641 - Presence of right artificial hip joint Is this a current diagnosis for this admission?: Yes Plan: 77-year-old female status post right total hip arthroplasty. Defer to primary care for medical issues including the cardiology consult and the surgical consult for her current active issues including constipation. We will monitor the nausea vomiting and surgical risk will evaluate for potential ileus. Weight-bear as tolerated and participate with physical therapy in the meantime. Continue DVT prophylaxis.
[2018-01-06 15:46] LABS: ANION GAP 11 (5-19); BLOOD UREA NITROGEN 29 mg/dL (7-20); CALCIUM 8.2 mg/dL (8.4-10.2); CARBON DIOXIDE 21 mmol/L (22-30); CHLORIDE 106 mmol/L (98-107); GLUCOSE 129 mg/dL (75-110); POTASSIUM 3.6 mmol/L (3.6-5.0); SODIUM 137.6 mmol/L (137-145)
--- NOTE | 2018-01-06 20:34 | PDOC CONSULTATION ---
Consultation Consult Date: 01/06/18 Consult reason:: ileus History of Present Illness Admission Date/PCP: 01/01/18 07:52 RANJAN PRICE MD Patient complains of: N/V History of Present Illness: TIM ORELLANA is a 77 year old female who had right hip surgery 01/02/18. Developed N/V yesterday and this am. KUB this am showed ileus. Last BM about a week ago. Just had an enema with fair results. Claims her abdomen is softer today than yesterday. Past Medical History Cardiac Medical History: Reports: Congestive Heart Failure, Coronary Artery Disease, Hypertension, Heart Murmur Denies: Atrial Fibrillation, Myocardial Infarction, Hyperlipidema, Peripheral Vascular Disease Pulmonary Medical History: Denies: Asthma, Bronchitis, Chronic Obstructive Pulmonary Disease (COPD), Pneumonia Neurological Medical History: Denies: Seizures Endocrine Medical History: Reports: Hypothyroidism Denies: Hyperthyroidism Renal/ Medical History: Reports: Chronic Kidney Disease Denies: End Stage Renal Disease GI Medical History: Reports: Gastroesophageal Reflux Disease Denies: Crohn's Disease, Hiatal Hernia Musculoskeltal Medical History: Reports: Arthritis - hips, knees, hands Denies: Fibromyalgia Hematology: Denies: Anemia Past Surgical History Past Surgical History: Reports: Cholecystectomy, Hysterectomy Denies: Amputation, Appendectomy, Section, Colostomy, Coronary Artery Bypass Graft, Gastric Bypass Surgery, Herniorrhaphy, Mastectomy, Pacemaker, Tonsillectomy, Tubal Ligation Social History Smoking Status: Former Smoker Hx Recreational Drug Use: No Hx Prescription Drug Abuse: No - Advance Directive Resuscitation Status: Full Code Family History Family History: Reviewed & Not Pertinent Parental Family History Reviewed: Yes Children Family History Reviewed: No Sibling(s) Family History Reviewed.: No Medication/Allergy Home Medications: Acetaminophen [Tylenol 325 mg Tablet] 500 mg PO ASDIR PRN 10/04/12 Allopurinol [Zyloprim 100 Mg Tablet] 100 mg PO DAILY 10/04/12 Aspirin [Ecotrin 81 mg EC Tablet] 81 mg PO QHS 10/04/12 Atorvastatin Calcium [Lipitor] 10 mg PO QHS 10/04/12 Calcium Carbonate/Vitamin D3 [Calcium + Vitamin D Tablet] 600 mg PO BID Diazepam [Valium 5 Mg Tablet] 5 mg PO Q12 10/04/12 Ergocalciferol (Vitamin D2) [Drisdol 50,000 unit (1.25MG) Capsule] 50,000 unit PO WE@1000 10/04/12 Estrogens,Conjugated [Premarin 0.3 Mg Tablet] 0.3 mg PO QHS 10/04/12 Furosemide [Lasix 20 mg Tablet] 10 mg PO DAILY 10/04/12 Gabapentin [Neurontin 300 Mg Capsule] 300 mg PO Q12 10/04/12 Levothyroxine Sodium [Synthroid 0.075 mg Tablet] 0.015 mcg PO DAILY 10/04/12 Meclizine HCl [Antivert] 25 mg PO Q6HP PRN 10/04/12 Metoprolol Tartrate [Lopressor 25 Mg Tablet] 25 mg PO Q12 10/04/12 Mineral Oil/Hydrophil Petrolat [Aquaphor Healing Ointment] 50 gm TP ASDIR Abiquiu-3 Fatty Acids/Fish Oil [Abiquiu 3 Fish Oil Softgel] 1 each PO DAILY Psyllium Husk [Metamucil] 0.52 gm PO DAILY 10/04/12 Ranitidine HCl 150 mg PO Q12 10/04/12 Zafirlukast [Accolate 10 mg Tablet] 10 mg PO DAILY 10/04/12 Ibuprofen 800 mg PO DAILY 12/21/17 Multivit-Min/Iron/Folic/Lutein [Centrum Silver Women Tablet] 1 tab PO DAILY Telmisartan [Micardis 80 mg Tablet] 80 mg PO DAILY 12/21/17 Allergies/Adverse Reactions: ciprofloxacin [From Cipro] Allergy (Intermediate, Verified 01/01/18 08:28) rash, n/v ciprofloxacin HCl [From Cipro] Allergy (Intermediate, Verified 01/01/18 08:28) rash, n/v metronidazole [Metronidazole] Allergy (Intermediate, Verified 01/01/18 08:28) unsure morphine [Morphine] Allergy (Intermediate, Verified 01/01/18 08:28) n/v cephalexin monohydrate [From Keflex] Adverse Reaction (Intermediate, Verified 08:28) rash codeine [Codeine] Adverse Reaction (Intermediate, Verified 01/01/18 08:28) n/v Sulfa (Sulfonamide Antibiotics) Adverse Reaction (Intermediate, Verified 08:28) hives, rash Bee stings Allergy (Severe, Uncoded 01/01/18 08:28) Anaphylaxis IVP Dye Adverse Reaction (Intermediate, Uncoded 01/01/18 08:28) hives, rash novacaine Adverse Reaction (Intermediate, Uncoded 01/01/18 08:28) pass out strawberries Adverse Reaction (Intermediate, Uncoded 01/01/18 08:28) rash medical tape Adverse Reaction (Mild, Uncoded 01/01/18 08:28) rash Review of Systems Constitutional: PRESENT: as per HPI, other - no fever/chills Eyes: PRESENT: other - no visual/hearing changes Cardiovascular: PRESENT: other - no chest pains/cough Gastrointestinal: PRESENT: nausea, vomiting Genitourinary: PRESENT: other - no dysuria Neurological: PRESENT: other - no seizures Physical Exam Vital Signs: Temp Pulse Resp BP Pulse Ox 98.8 F 113 H 19 147/62 H 94 01/06/18 19:39 01/06/18 19:57 01/06/18 19:39 01/06/18 19:39 01/06/18 19:39 Intake & Output 01/05/18 01/06/18 01/07/18 06:59 06:59 05:59 Intake Total 2695 1556 218 Output Total 650 600 Balance 2045 956 218 Weight 107.1 kg 115.1 kg General appearance: PRESENT: no acute distress Head exam: PRESENT: atraumatic Neck exam: PRESENT: full ROM Respiratory exam: PRESENT: clear to auscultation scooby Cardiovascular exam: PRESENT: RRR Pulses: PRESENT: normal radial pulses Vascular exam: PRESENT: normal capillary refill GI/Abdominal exam: PRESENT: soft, other - mildly distended and nontender Rectal exam: PRESENT: deferred Results Laboratory Results: 01/06/18 06:15 01/06/18 15:10 01/06/18 01/06/18 01/06/18 06:15 06:15 15:10 WBC 8.3 RBC 3.32 L Hgb 10.2 L Hct 29.7 L MCV 90 MCH 30.8 MCHC 34.4 RDW 14.1 H Plt Count 270 Sodium 136.9 L 137.6 Potassium 3.3 L 3.6 Chloride 107 106 Carbon Dioxide 21 L 21 L Anion Gap 9 11 BUN 29 H 29 H Creatinine 1.41 H 1.33 H Est GFR ( Amer) 44 L 47 L Est GFR (Non-Af Amer) 36 L 39 L Glucose 116 H 129 H Calcium 8.1 L 8.2 L Magnesium 2.0 Impressions: Pelvis X-Ray 01/01/18 11:22 IMPRESSION: Right hip arthroplasty. Chest X-Ray 01/06/18 00:00 IMPRESSION: STABLE APPEARANCE. NO ACUTE RADIOGRAPHIC FINDING IN THE CHEST. KUB X-Ray 01/06/18 07:51 IMPRESSION: MARKED BOWEL DILATION, PRIMARILY INVOLVING THE COLON, AND ALSO MILD SMALL BOWEL DILATION. SEVERE ILEUS VERSUS OBSTRUCTION. Assessment & Plan - Diagnosis (1) MEDINA (acute kidney injury) Is this a current diagnosis for this admission?: Yes (2) Chronic kidney disease Qualifiers: Chronic kidney disease stage: stage 3 (moderate) Qualified Code(s): N18.3 - Chronic kidney disease, stage 3 (moderate) Is this a current diagnosis for this admission?: Yes (3) Congestive heart failure Qualifiers: Heart failure type: diastolic Heart failure chronicity: chronic Qualified Code(s): I50.32 - Chronic diastolic (congestive) heart failure Is this a current diagnosis for this admission?: Yes (4) Hip joint replacement status Qualifiers: Laterality: right Qualified Code(s): Z96.641 - Presence of right artificial hip joint Is this a current diagnosis for this admission?: Yes (5) Ileus Is this a current diagnosis for this admission?: Yes - Time Time Spent: 30 to 50 Minutes - Inpatient Certification Medical Necessity: Need For IV Fluids, Risk of Complication if Not Cared For in Hospital - Plan Summary Plan Summary: 77 yo female about 5 days post right hip surgery c/o N/V yesterday and thisam. KUB showed ileus. Had enema today with fair result. Abd is soft,mildly distended and non tender. No surgical abdomen. Keep NPO and hydrate Check labs and correct if any abnormality Will re-evlauate tomorrow.
[2018-01-06] MEDS: ASPIRIN 81 MG TABLET, ENT COATED PO SCH (20:59)
[2018-01-06] MEDS: ATORVASTATIN CALCIUM 10 MG TABLET PO SCH (20:59)
[2018-01-06] MEDS: MONTELUKAST SODIUM 10 MG TABLET PO SCH (20:59)
[2018-01-06] MEDS: FAMOTIDINE 20 MG TABLET PO SCH (20:59)
[2018-01-07] MEDS: NORMAL SALINE 10 ML SDV (SCHEDULED) IV SCH ×2 (05:45→15:34)
[2018-01-07] MEDS: LANSOPRAZOLE 30 MG TAB.RAP.DR PO SCH (05:46)
[2018-01-07 06:37] LABS: HEMATOCRIT 27.3 % (36.0-47.0); HEMOGLOBIN 9.1 g/dL (12.0-15.5); MEAN CORPUSCULAR HEMOGLOBIN 30.1 pg (27.0-33.4); MEAN CORPUSCULAR HGB CONC 33.4 g/dL (32.0-36.0); MEAN CORPUSCULAR VOLUME 90 fl (80-97); PLATELET COUNT 253 10^3/uL (150-450); RED BLOOD COUNT 3.04 10^6/uL (3.72-5.28); RED CELL DISTRIBUTION WIDTH 14.2 % (11.5-14.0); WHITE BLOOD COUNT 8.8 10^3/uL (4.0-10.5)
[2018-01-07 07:01] LABS: ANION GAP 10 (5-19); BLOOD UREA NITROGEN 26 mg/dL (7-20); CALCIUM 7.9 mg/dL (8.4-10.2); CARBON DIOXIDE 21 mmol/L (22-30); CHLORIDE 108 mmol/L (98-107); GLUCOSE 96 mg/dL (75-110); SODIUM 139.4 mmol/L (137-145)
[2018-01-07 07:07] LABS: POTASSIUM 2.9 mmol/L (3.6-5.0)
[2018-01-07] MEDS ORDERED: NORMAL SALINE 1000 ML 1,000 ML IV PRN (08:36)
[2018-01-07] MEDS: POTASSIUM CHLORIDE 20 MEQ/50 ML RTU IV SCH ×4 (08:36→21:15)
--- NOTE | 2018-01-07 09:19 | PDOC PROGRESS REPORT ---
Subjective Progress Note for:: 01/07/18 Subjective:: Patient is currently doing same Patient's otherwise alert awake oriented answering all questions but pretty much not very active Patient is easily go to the sleep Patient is currently not taking any narcotics when not taking any Ambien Patient's denied any chest pain denied any shortness of the breath Patient's denied any abdominal pain No vomiting Patient seen by general surgery and suggested continues to n.p.o. Patient urinating well without any problems No fever no chills Reason For Visit: RIGHT HIP ARTHRITIS Physical Exam Vital Signs: Temp Pulse Resp BP Pulse Ox 98.8 F 110 H 15 135/68 H 92 01/07/18 07:34 01/07/18 07:34 01/07/18 07:34 01/07/18 07:34 01/07/18 07:34 Intake & Output 01/06/18 01/07/18 01/08/18 07:59 06:59 06:59 Intake Total Output Total Balance Weight General appearance: PRESENT: no acute distress, well-developed, well-nourished Head exam: PRESENT: atraumatic, normocephalic Eye exam: PRESENT: conjunctiva pink, EOMI, PERRLA. ABSENT: scleral icterus Ear exam: PRESENT: normal external ear exam Mouth exam: PRESENT: moist, tongue midline Neck exam: PRESENT: full ROM. ABSENT: carotid bruit, JVD, lymphadenopathy, thyromegaly Respiratory exam: PRESENT: clear to auscultation scooby Cardiovascular exam: PRESENT: RRR. ABSENT: diastolic murmur, rubs, systolic murmur Pulses: PRESENT: normal dorsalis pedis pul, +2 pedal pulses bilateral Vascular exam: PRESENT: normal capillary refill GI/Abdominal exam: PRESENT: normal bowel sounds, soft. ABSENT: distended, guarding, mass, organolmegaly, rebound, tenderness Rectal exam: PRESENT: deferred Extremities exam: PRESENT: pedal edema Neurological exam: PRESENT: alert, awake, oriented to person, oriented to place , oriented to time, oriented to situation, CN II-XII grossly intact. ABSENT: motor sensory deficit Psychiatric exam: PRESENT: appropriate affect, normal mood. ABSENT: homicidal ideation, suicidal ideation Skin exam: PRESENT: dry, intact, warm. ABSENT: cyanosis, rash Results Laboratory Results: 01/07/18 05:25 01/07/18 05:25 01/06/18 01/07/18 01/07/18 15:10 05:25 05:25 WBC 8.8 RBC 3.04 L Hgb 9.1 L Hct 27.3 L MCV 90 MCH 30.1 MCHC 33.4 RDW 14.2 H Plt Count 253 Sodium 137.6 139.4 Potassium 3.6 2.9 L* Chloride 106 108 H Carbon Dioxide 21 L 21 L Anion Gap 11 10 BUN 29 H 26 H Creatinine 1.33 H 1.27 H Est GFR ( Amer) 47 L 49 L Est GFR (Non-Af Amer) 39 L 41 L Glucose 129 H 96 Calcium 8.2 L 7.9 L Impressions: Pelvis X-Ray 01/01/18 11:22 IMPRESSION: Right hip arthroplasty. Chest X-Ray 01/06/18 00:00 IMPRESSION: STABLE APPEARANCE. NO ACUTE RADIOGRAPHIC FINDING IN THE CHEST. KUB X-Ray 01/06/18 07:51 IMPRESSION: MARKED BOWEL DILATION, PRIMARILY INVOLVING THE COLON, AND ALSO MILD SMALL BOWEL DILATION. SEVERE ILEUS VERSUS OBSTRUCTION. Assessment & Plan - Diagnosis (1) Hip joint replacement status Qualifiers: Laterality: right Qualified Code(s): Z96.641 - Presence of right artificial hip joint Is this a current diagnosis for this admission?: Yes Plan: Continues to follow with the orthopedic surgery (2) Hypertension Qualifiers: Hypertension type: essential hypertension Qualified Code(s): I10 - Essential (primary) hypertension Is this a current diagnosis for this admission?: Yes Plan: Patient is currently hold all blood pressure medications (3) Chronic kidney disease Qualifiers: Chronic kidney disease stage: stage 3 (moderate) Qualified Code(s): N18.3 - Chronic kidney disease, stage 3 (moderate) Is this a current diagnosis for this admission?: Yes Plan: All improving replaced IV potassium (4) Congestive heart failure Qualifiers: Heart failure type: diastolic Heart failure chronicity: chronic Qualified Code(s): I50.32 - Chronic diastolic (congestive) heart failure Is this a current diagnosis for this admission?: Yes Plan: We consult the cardiology (5) Hyperlipidemia Qualifiers: Hyperlipidemia type: unspecified Qualified Code(s): E78.5 - Hyperlipidemia , unspecified Is this a current diagnosis for this admission?: Yes (6) Arthritis Is this a current diagnosis for this admission?: Yes (7) Coronary arteriosclerosis Is this a current diagnosis for this admission?: Yes Plan: Repeat the EKG today (8) Impaired fasting glucose Is this a current diagnosis for this admission?: Yes (9) Fever Qualifiers: Fever type: unspecified Qualified Code(s): R50.9 - Fever, unspecified Is this a current diagnosis for this admission?: Yes Plan: Patient's all cultures negative will repeat the chest x-ray (10) Ileus Is this a current diagnosis for this admission?: Yes Plan: With the KUB (11) Encephalopathy Is this a current diagnosis for this admission?: Yes Plan: Most likely a metabolic We will replace the potassium Check the magnesium Get the CT of the head Check the ABG - Time Time Spent with patient: 15-24 minutes Medications reviewed and adjusted accordingly: Yes Anticipated discharge: SNF Within: Other - Inpatient Certification Based on my medical assessment, after consideration of the patient's comorbidities, presenting symptoms, or acuity I expect that the services needed warrant INPATIENT care.: Yes I certify that my determination is in accordance with my understanding of Medicare's requirements for reasonable and necessary INPATIENT services [42 CFR 412.3e].: Yes Medical Necessity: Need Close Monitoring Due to Risk of Patient Decompensation, Need for IV Antibiotics Post Hospital Care: D/C M[facility]cher Documentation - Plan Summary Plan Summary: Will cut down the IV fluid from 125-to 50 cc Continues to IV Lasix Get the ABG and a chest x-ray Will get the CT of the head Encourage the patient's to sit in the chair and participate in the physical therapy
--- NOTE | 2018-01-07 09:36 | RADIOLOGY REPORT (SQ) ---
EXAM DESCRIPTION: CT HEAD WITHOUT COMPLETED DATE/TIME: 01/07/2018 9:24 am REASON FOR STUDY: confusion M16.11 UNILATERAL PRIMARY OSTEOARTHRITIS, RIGHT HIP COMPARISON: None. TECHNIQUE: Axial images acquired through the brain without intravenous contrast. Images reviewed wi th bone, brain and subdural windows. Additional sagittal and coronal reconstructions were generated. Images stored on PACS. All CT scanners at this facility use dose modulation, iterative reconstruction, and/or weight based d osing when appropriate to reduce radiation dose to as low as reasonably achievable (ALARA). [facility]: Dose Right [facility]: CareDose [facility]: Dose Right [facility]: Teradose 4D [facility]: Revenew RADIATION DOSE: CT Rad equipment meets quality standard of care and radiation dose reduction techniq ues were employed. CTDIvol: 53.2 mGy. DLP: 1017 mGy-cm. mGy. LIMITATIONS: None. FINDINGS: VENTRICLES: Normal size and contour. CEREBRUM: No masses. No hemorrhage. No midline shift. No evidence for acute infarction. Normal gra y/white matter differentiation. No areas of low density in the white matter. CEREBELLUM: No masses. No hemorrhage. No alteration of density. No evidence for acute infarction. EXTRAAXIAL SPACES: No fluid collections. No masses. ORBITS AND GLOBE: No intra- or extraconal masses. Normal contour of globe without masses. CALVARIUM: No fracture. PARANASAL SINUSES: No fluid or mucosal thickening. SOFT TISSUES: No mass or hematoma. OTHER: No other significant finding. IMPRESSION: NORMAL BRAIN CT WITHOUT CONTRAST. EVIDENCE OF ACUTE STROKE: NO. COMMENT: Quality ID # [id number]: Final reports with documentation of one or more dose reduction techniques (e.g., Automated exposure control, adjustment of the mA and/or kV according to patient size, use of iterative reconstruction technique) TECHNICAL DOCUMENTATION: JOB ID: [id number] [employer]- All Rights Reserved Reading location - IP/workstation name: [email or web address]
[2018-01-07 10:04] LABS: ARTERIAL BLOOD BASE EXCESS -5.8 mmol/L; ARTERIAL BLOOD H2CO3 1.22 mmol/L (1.05-1.35); ARTERIAL BLOOD O2 SATURATION 87.8 % (94-98); ARTERIAL BLOOD PCO2 40.5 mmHg (35-45); ARTERIAL BLOOD PH 7.31 (7.35-7.45); ARTERIAL BLOOD TOTAL CO2 21.2 mmol/L (21-25)
[2018-01-07 10:12] LABS: ARTERIAL BLOOD FIO2 ROOM AIR
--- NOTE | 2018-01-07 10:16 | RADIOLOGY REPORT (SQ) ---
EXAM DESCRIPTION: CHEST SINGLE VIEW COMPLETED DATE/TIME: 01/07/2018 10:03 am REASON FOR STUDY: chf COMPARISON: 01/06/2018. EXAM PARAMETERS: NUMBER OF VIEWS: One view. TECHNIQUE: Single frontal radiographic view of the chest acquired. RADIATION DOSE: NA LIMITATIONS: None. FINDINGS: LUNGS AND PLEURA: No opacities, masses or pneumothorax. No pleural effusion. MEDIASTINUM AND HILAR STRUCTURES: No masses. Contour normal. HEART AND VASCULAR STRUCTURES: Heart normal in size. Normal vasculature. BONES: No acute findings. HARDWARE: Central line. OTHER: No other significant finding. IMPRESSION: STABLE APPEARANCE. NO ACUTE RADIOGRAPHIC FINDING IN THE CHEST. TECHNICAL DOCUMENTATION: JOB ID: [id number] [employer]- All Rights Reserved Reading location - IP/workstation name: [email or web address]
--- NOTE | 2018-01-07 10:17 | RADIOLOGY REPORT (SQ) ---
EXAM DESCRIPTION: KUB/ABDOMEN (SINGLE VIEW) COMPLETED DATE/TIME: 01/07/2018 10:03 am REASON FOR STUDY: Ileus M16.11 UNILATERAL PRIMARY OSTEOARTHRITIS, RIGHT HIP COMPARISON: 01/06/2018. NUMBER OF VIEWS: One view. TECHNIQUE: Supine radiographic image of the abdomen acquired. LIMITATIONS: None. FINDINGS: BOWEL GAS PATTERN: Prominent gas in the small bowel and colon. CALCIFICATIONS: No suspicious calcifications. SOFT TISSUES: No gross mass or suggestion of organomegaly. HARDWARE: Right hip prosthesis. BONES: No acute fracture. Degenerative changes in the spine. No worrisome bone lesions. OTHER: No other significant finding. IMPRESSION: PROMINENT GAS IN THE SMALL BOWEL AND COLON. NO CHANGE. MOST LIKELY DUE TO ILEUS. TECHNICAL DOCUMENTATION: JOB ID: [id number] [employer]- All Rights Reserved Reading location - IP/workstation name: [email or web address]
[2018-01-07] MEDS: SODIUM BICARBONATE 650 MG TABLET PO SCH ×2 (10:34→21:09)
[2018-01-07] MEDS: MULTIVITAMIN TABLET PO SCH (10:34)
[2018-01-07] MEDS: ALLOPURINOL 100 MG TABLET PO SCH (10:34)
[2018-01-07] MEDS: NYSTATIN/DEXAMETH/DIPHEN SUSP 120 ML PO SCH ×3 (10:43→17:40)
[2018-01-07] MEDS: FUROSEMIDE INJ/PF 20 MG/2 ML SDV IV SCH ×2 (10:43→21:08)
[2018-01-07] MEDS: ENOXAPARIN SODIUM INJ 40 MG/0.4 ML DISP.SYRIN SUBCUT SCH (10:43)
[2018-01-07] MEDS: LEVOTHYROXINE SODIUM 0.075 MG TABLET PO SCH (10:43)
[2018-01-07] MEDS: LEVALBUTEROL HCL NEB 1.25 MG/3 ML AMPUL NEB PRN (10:58)
--- NOTE | 2018-01-07 14:28 | PDOC PROGRESS REPORT ---
Subjective Progress Note for:: 01/07/18 Subjective:: Patient currently n.p.o. for postoperative ileus. Patient currently being addressed by medical service as well. No acute issues overnight. Reason For Visit: RIGHT HIP ARTHRITIS Physical Exam Vital Signs: Temp Pulse Resp BP Pulse Ox 36.9 C 120 H 18 144/71 H 100 01/07/18 11:46 01/07/18 11:46 01/07/18 11:46 01/07/18 11:46 01/07/18 11:46 Intake & Output 01/06/18 01/07/18 01/08/18 07:59 06:59 06:59 Intake Total 348 Output Total 900 Balance -552 Weight General appearance: PRESENT: no acute distress Adult Front & Back Image: 1 - New dressing has been applied in the dressing is dry clean and intact. No signs of erythema or infection. She has gross limb lengths being equal and negative Kasey with soft calf. She is neurovascular intact distally. Results Laboratory Results: 01/07/18 05:25 01/07/18 05:25 01/06/18 01/07/18 01/07/18 15:10 05:25 05:25 WBC 8.8 RBC 3.04 L Hgb 9.1 L Hct 27.3 L MCV 90 MCH 30.1 MCHC 33.4 RDW 14.2 H Plt Count 253 Carbonic Acid HCO3/H2CO3 Ratio ABG pH ABG pCO2 ABG pO2 ABG HCO3 ABG O2 Saturation ABG Base Excess FiO2 Sodium 137.6 139.4 Potassium 3.6 2.9 L* Chloride 106 108 H Carbon Dioxide 21 L 21 L Anion Gap 11 10 BUN 29 H 26 H Creatinine 1.33 H 1.27 H Est GFR ( Amer) 47 L 49 L Est GFR (Non-Af Amer) 39 L 41 L Glucose 129 H 96 Calcium 8.2 L 7.9 L Magnesium Ammonia 01/07/18 01/07/18 01/07/18 05:25 09:50 11:33 WBC RBC Hgb Hct MCV MCH MCHC RDW Plt Count Carbonic Acid 1.22 HCO3/H2CO3 Ratio 16:1 ABG pH 7.31 L ABG pCO2 40.5 ABG pO2 58.0 L ABG HCO3 20.0 ABG O2 Saturation 87.8 L ABG Base Excess -5.8 FiO2 ROOM AIR Sodium Potassium Chloride Carbon Dioxide Anion Gap BUN Creatinine Est GFR ( Amer) Est GFR (Non-Af Amer) Glucose Calcium Magnesium 2.0 Ammonia < 8.7 L 01/07/18 05:25 NT-Pro-B Natriuret Pep 1080 H Impressions: Pelvis X-Ray 01/01/18 11:22 IMPRESSION: Right hip arthroplasty. Chest X-Ray 01/07/18 00:00 IMPRESSION: STABLE APPEARANCE. NO ACUTE RADIOGRAPHIC FINDING IN THE CHEST. Head CT 01/07/18 00:00 IMPRESSION: NORMAL BRAIN CT WITHOUT CONTRAST. EVIDENCE OF ACUTE STROKE: NO. KUB X-Ray 01/07/18 00:00 IMPRESSION: PROMINENT GAS IN THE SMALL BOWEL AND COLON. NO CHANGE. MOST LIKELY DUE TO ILEUS. Assessment & Plan - Diagnosis (1) Hip joint replacement status Qualifiers: Laterality: right Qualified Code(s): Z96.641 - Presence of right artificial hip joint Is this a current diagnosis for this admission?: Yes - Plan Summary Plan Summary: 77-year-old female status post right total hip arthroplasty. She can continue weight-bear as tolerated and physical therapy with posterior hip precautions. Continue DVT prophylaxis. Patient has had no narcotics and will continue that. Thankfully her pain is adequately controlled. Patient currently n.p.o. to address her postoperative ileus. Antibiotic was given and she had a loose stool today. Patient has a Batista put in by primary service and placed on IV fluids and given potassium for low potassium. Will allow medical service to continue addressing her medical issues.
[2018-01-07] MEDS: CEFEPIME 1 GM/D5W RTU 1 GM/50 ML RTUPB IV SCH ×2 (16:35→21:11)
[2018-01-07 18:34] LABS: ANION GAP 10 (5-19); BLOOD UREA NITROGEN 25 mg/dL (7-20); CARBON DIOXIDE 23 mmol/L (22-30); CHLORIDE 108 mmol/L (98-107); GLUCOSE 104 mg/dL (75-110); SODIUM 140.8 mmol/L (137-145)
--- NOTE | 2018-01-07 20:08 | PDOC PROGRESS REPORT ---
Subjective Progress Note for:: 01/07/18 Subjective:: no pains,no vomiting but with mild nausea Reason For Visit: RIGHT HIP ARTHRITIS Physical Exam Vital Signs: Temp Pulse Resp BP Pulse Ox 98.8 F 109 H 16 123/66 100 01/07/18 15:40 01/07/18 19:00 01/07/18 15:40 01/07/18 15:40 01/07/18 15:40 Intake & Output 01/06/18 01/07/18 01/08/18 07:59 06:59 06:59 Intake Total 448 Output Total 900 Balance -452 Weight Exam: abd is soft and non tender with mild distention not any worse than yesterday. Results Laboratory Results: 01/07/18 05:25 01/07/18 17:42 01/07/18 01/07/18 01/07/18 05:25 05:25 05:25 WBC 8.8 RBC 3.04 L Hgb 9.1 L Hct 27.3 L MCV 90 MCH 30.1 MCHC 33.4 RDW 14.2 H Plt Count 253 Carbonic Acid HCO3/H2CO3 Ratio ABG pH ABG pCO2 ABG pO2 ABG HCO3 ABG O2 Saturation ABG Base Excess FiO2 Sodium 139.4 Potassium 2.9 L* Chloride 108 H Carbon Dioxide 21 L Anion Gap 10 BUN 26 H Creatinine 1.27 H Est GFR ( Amer) 49 L Est GFR (Non-Af Amer) 41 L Glucose 96 Calcium 7.9 L Magnesium 2.0 Ammonia 01/07/18 01/07/18 01/07/18 09:50 11:33 17:42 WBC RBC Hgb Hct MCV MCH MCHC RDW Plt Count Carbonic Acid 1.22 HCO3/H2CO3 Ratio 16:1 ABG pH 7.31 L ABG pCO2 40.5 ABG pO2 58.0 L ABG HCO3 20.0 ABG O2 Saturation 87.8 L ABG Base Excess -5.8 FiO2 ROOM AIR Sodium 140.8 Potassium 3.0 L* Chloride 108 H Carbon Dioxide 23 Anion Gap 10 BUN 25 H Creatinine 1.20 Est GFR ( Amer) 53 L Est GFR (Non-Af Amer) 43 L Glucose 104 Calcium 8.0 L Magnesium Ammonia < 8.7 L 01/04/18 07:55 Batista Catheter Urine Culture - Final Yeast, Not Alannah Albicans 01/07/18 05:25 NT-Pro-B Natriuret Pep 1080 H Impressions: Pelvis X-Ray 01/01/18 11:22 IMPRESSION: Right hip arthroplasty. Chest X-Ray 01/07/18 00:00 IMPRESSION: STABLE APPEARANCE. NO ACUTE RADIOGRAPHIC FINDING IN THE CHEST. Head CT 01/07/18 00:00 IMPRESSION: NORMAL BRAIN CT WITHOUT CONTRAST. EVIDENCE OF ACUTE STROKE: NO. KUB X-Ray 01/07/18 00:00 IMPRESSION: PROMINENT GAS IN THE SMALL BOWEL AND COLON. NO CHANGE. MOST LIKELY DUE TO ILEUS. Assessment & Plan - Diagnosis (1) MEDINA (acute kidney injury) Is this a current diagnosis for this admission?: Yes (2) Chronic kidney disease Qualifiers: Chronic kidney disease stage: stage 3 (moderate) Qualified Code(s): N18.3 - Chronic kidney disease, stage 3 (moderate) Is this a current diagnosis for this admission?: Yes (3) Congestive heart failure Qualifiers: Heart failure type: diastolic Heart failure chronicity: chronic Qualified Code(s): I50.32 - Chronic diastolic (congestive) heart failure Is this a current diagnosis for this admission?: Yes (4) Hip joint replacement status Qualifiers: Laterality: right Qualified Code(s): Z96.641 - Presence of right artificial hip joint Is this a current diagnosis for this admission?: Yes (5) Ileus Is this a current diagnosis for this admission?: Yes - Time Time Spent with patient: 15-24 minutes - Inpatient Certification Medical Necessity: Need For IV Fluids, Need for IV Antibiotics, Risk of Complication if Not Cared For in Hospital - Plan Summary Plan Summary: KUB still with ileus Low K Plan: Continue NPO but ok to have oral swab Correct electrolytes as ordered by Dr Castro Will follow
--- NOTE | 2018-01-07 20:57 | PDOC CONSULTATION ---
Consultation-Blank Consultation: CARDIOLOGY CONSULTATION by Dr. Zhanna Watson on 01/07/2018. Patient seen at 3:30 PM on 01/07/2018. REASON FOR CONSULTATION: Patient with shortness of breath and wheezing from possible congestive heart failure. HISTORY of PRESENT ILLNESS: Patient is a 77-year-old female with a known history of hypertension, hypothyroidism, GERD, mild aortic insufficiency, and chronic kidney disease stage II-III who underwent a right hip replacement this admission. Subsequently the patient was transiently hypotensive and subsequently her renal function deteriorated to a GFR of 43 mL/min which is stage IV kidney disease, from a baseline stage II-III chronic kidney disease. Today the patient was seen to be wheezing, and the patient claims that this got better resolved with a breathing treatment. She has no prior history of a diagnosis of COPD or asthma. There is no definite history of sleep apnea, although the patient does have some symptoms suggestive of obstructive sleep apnea. She has not had a sleep study. She has no history of coronary artery disease or IN, and denies any chest pain or discomfort. The patient's chest x- ray does not show any congestive heart failure, shows normal vasculature. Possibly the patient's congestive heart failure is due to volume retention due to acute on chronic kidney disease. The patient also has a ileus most likely secondary to hypokalemia. At present the patient appears to be drowsy, although she states that she is feels better than yesterday. She does have some orthopnea but no PND. She has mild pedal edema bilaterally. She denies any chest pain or discomfort. At present when I examined her she has no wheezing, since the patient already had a breathing treatment for prior complaints and findings of wheezing by the nurse. There is no symptoms or TIA CVA. There is no arrhythmias seen on the monitor. PAST MEDICAL HISTORY she has history of hypertension. There is no history of IN or anginal symptoms. She has a history of diastolic dysfunction by echocardiography, but no prior history of diastolic heart failure. There is no history of systolic heart failure. There is no arrhythmias. There is no syncope. There is no PND orthopnea. There is no history of asthma or COPD. There is no history of documented or diagnosed sleep apnea by sleep study. There is no history of TIA CVA. There is no history of diabetes mellitus. The patient does have morbid obesity. She does have hypothyroidism. The patient also has chronic kidney disease stage II-III. The patient in August 2017 had a Cardiolite Lexiscan stress test showed no evidence of myocardial ischemia and no evidence of scar. Ejection fraction was 67%. Her echo done in January 09, 2017 showed a LV ejection fraction of 60-65%. She had grade 1/mild diastolic dysfunction. She had no aortic stenosis. There is mild aortic regurgitation. There is mild mitral regurgitation there is borderline prolapse of the mitral valve leaflets. There is no evidence of pulmonary hypertension with the mild tricuspid regurgitation. There was no pericardial effusion. PAST SURGICAL HISTORY: The patient is admission at right hip replacement. She has a past history of appendectomy, breast biopsy which came back negative for malignant malignancy. She had she has had cardiac catheterization she had cataract surgery. She had colonoscopy. She has cyst removal. She has apparent GI endoscopy. She has eye surgery. She had gallbladder surgery. She had hemorrhoidectomy. She also had a left hip replacement. She also had a hysterectomy. She is also had knee surgery and tonsillectomy and tooth extractions. FAMILY HISTORY: Is positive for cancer and osteosarcoma and aplastic anemia. Also colon cancer lung cancer and metastasis. SOCIAL HISTORY: The patient has never smoked. There is no history of EtOH abuse. ALLERGIES. She is allergic to ciprofloxacin, metronidazole, morphine, and DISPOSITION: The patient is a full code her is a surrogate healthcare decision maker. REVIEW OF SYSTEMS: CONSTITUTIONAL: Has generalized fatigue and generalized weakness. She did have a fever this admission 202 F. No associated chills. The fever has not had any recurrence. HEAD: Denies headaches or head injury. EYES: No history of amblyopia diplopia. No amaurosis fugax. EARS: No history of tinnitus. No vertigo. No history of hearing loss. NOSE: No history of nosebleeds. No history of hayfever. No nasal polyps. MOUTH: No altered taste sensation. No ulcers in the mouth. No bleeding from the gums. THROAT: No history of odynophagia or dysphagia. No recurrent sore throats. SKIN: No history of pruritus. No history of yellowish discoloration of the skin. No history of psoriasis. NECK: No neck pain. No swelling in the neck. LUNGS: No history of asthma COPD. But the patient states that respiratory treatment resolved her shortness of breath and wheezing this morning. No history of sleep apnea, but the patient has not had a sleep study. She does have symptoms suggestive of sleep apnea. The patient is also morbidly obese. No pleuritic chest pain no history of pulmonary embolism. No history of hemoptysis. No symptoms of upper or lower respiratory tract infection. The patient's chest x- ray does not show any pneumonic process. And the patient has no symptoms of bronchitis such as cough or sputum production. CARDIAC: History of hypertension present no history of IN or coronary artery disease or anginal symptoms. The patient had a negative Cardiolite stress test for ischemia and scar in August 2017. Although her echo shows LV diastolic dysfunction, there is no prior history of chronic left ventricular diastolic heart failure. There is no history of congestive heart failure. There is no history of arrhythmias. Recent swelling of her extremities secondary to volume overload due to acute renal failure on chronic renal failure. No history of palpitations or syncope. No history of rheumatic fever. GI: No history of abdominal pain no history of fatty food intolerance. No history of GI bleed. The patient has developed ileus secondary to hypokalemia. No history of bursitis. No history of cirrhosis. No history of jaundice. ENDOCRINE: No history of diabetes mellitus. No history of polydipsia polyuria. History of hypothyroidism on replacement. No history of heat or cold intolerance. No history of hirsutism. No history of excessive sweating METABOLIC: History of morbid obesity. No history of gout. MUSCULOSKELETAL: History of arthritis present. No history of collagen vascular disease. RENAL: History of chronic kidney disease stage II- III. No history of UTI. No history of recurrent UTIs. No hematuria pyuria or dysuria. SOLID WASTE COLLECTOR: No history of TIA or CVA. No history of headaches migraines or seizures. PSYCHIATRIC: No history of anxiety OR DEPRESSION. NO SUICIDAL IDEATION. NO HOMICIDAL IDEATION. VASCULAR: No history of DVT. No history of buttock, or calf claudication. HEMATOLOGICAL: No history of bleeding diathesis. No history of clotting disorders. PHYSICAL EXAMINATION: The patient is morbidly obese. She is in no acute distress at present. Although she is slightly lethargic and drowsy. She is well-groomed. Selected Entries 01/07/18 01/07/18 10:00 15:40 Temperature 98.8 F Temperature Oral Source Pulse Rate 110 H Respiratory 16 Rate Blood Pressure 123/66 Blood Pressure 85 Mean BP Location Left Arm BP Position Supine Oxygen Delivery Nasal Cannula Method ( includes room air) Oxygen Flow 2 Rate Oxygen Delivery Nasal Cannula Method HEAD: Is atraumatic normocephalic. EYES: Pupils are equal round regular, reactive to light and accommodation. External ocular movements are normal. There is no scleral icterus. There is no conjunctival pallor. EARS: Tympanic membranes are intact.. External auditory canals are clear. NOSE: There is no inflammation of the nasal mucous membrane. There is no deviated nasal septum. MOUTH: Mucous membranes of mouth are moist tongue is moist. There is no ulcers. There is no bleeding from the gums. THROAT: There is no redness of the oropharynx. There is no exudates in the throat. SKIN: There is no ecchymosis of petechia. There is no skin lesions or skin rashes. NECK: Is supple there is mild JVD present. Carotids equal there is no bruit there is no lymphadenopathy. There is no goiter. Trachea is central. There is no accessory muscles of respiration use. LUNGS: Is clear to auscultation percussion. At present I do not hear any wheezing. There is no rhonchi wheezing or rales. HEART: S1-S2 is heard there is no S3 gallop there is no S4 gallop. There is systolic murmur of mild mitral regurgitation present. There is no rub. ABDOMEN: Is soft distended. Bowel sounds are diminished. There is no paraspinal megaly. There is no tender areas of masses. There is no rebound guarding or rigidity. EXTREMITIES: Femorals are deep femorals are diminished there is no femoral bruits leg pulses are diminished there is 1+ edema bilaterally. There is no DVT or cellulitis. There is no calf tenderness. There is no sinus or clubbing. Skin capillary refill is normal. SOLID WASTE COLLECTOR: Patient is slightly drowsy and lethargic. Otherwise in spite of that she is oriented x3. There is no focal deficits. PSYCHIATRIC: The patient judgment and insight are intact her affect is normal. 01/03/18 01/06/18 01/06/18 08:41 06:15 15:10 WBC 8.3 Hgb 10.2 L Hct 29.7 L Plt Count 270 Carbonic Acid HCO3/H2CO3 Ratio ABG pH ABG pCO2 ABG pO2 ABG HCO3 ABG Total CO2 ABG O2 Saturation ABG Base Excess FiO2 Sodium 136.7 L 137.6 Potassium 3.7 3.6 Chloride 104 106 Carbon Dioxide 24 21 L Anion Gap BUN 26 H 29 H Creatinine 2.08 H 1.33 H Est GFR (Non-Af Amer) 23 L 39 L Glucose 110 129 H Calcium 8.5 8.2 L Magnesium Ammonia NT-Pro-B Natriuret Pep 01/07/18 01/07/18 01/07/18 05:25 05:25 05:25 WBC 8.8 Hgb 9.1 L Hct 27.3 L Plt Count 253 Carbonic Acid HCO3/H2CO3 Ratio ABG pH ABG pCO2 ABG pO2 ABG HCO3 ABG Total CO2 ABG O2 Saturation ABG Base Excess FiO2 Sodium 139.4 Potassium 2.9 L* Chloride 108 H Carbon Dioxide 21 L Anion Gap 10 BUN 26 H Creatinine 1.27 H Est GFR (Non-Af Amer) 41 L Glucose 96 Calcium 7.9 L Magnesium 2.0 Ammonia NT-Pro-B Natriuret Pep 01/07/18 01/07/18 01/07/18 05:25 09:50 11:33 WBC Hgb Hct Plt Count Carbonic Acid 1.22 HCO3/H2CO3 Ratio 16:1 ABG pH 7.31 L ABG pCO2 40.5 ABG pO2 58.0 L ABG HCO3 20.0 ABG Total CO2 21.2 ABG O2 Saturation 87.8 L ABG Base Excess -5.8 FiO2 ROOM AIR Sodium Potassium Chloride Carbon Dioxide Anion Gap BUN Creatinine Est GFR (Non-Af Amer) Glucose Calcium Magnesium Ammonia < 8.7 L NT-Pro-B Natriuret Pep 1080 H 01/07/18 17:42 WBC Hgb Hct Plt Count Carbonic Acid HCO3/H2CO3 Ratio ABG pH ABG pCO2 ABG pO2 ABG HCO3 ABG Total CO2 ABG O2 Saturation ABG Base Excess FiO2 Sodium 140.8 Potassium 3.0 L* Chloride 108 H Carbon Dioxide 23 Anion Gap 10 BUN 25 H Creatinine 1.20 Est GFR (Non-Af Amer) 43 L Glucose 104 Calcium 8.0 L Magnesium Ammonia NT-Pro-B Natriuret Pep 01/01/18 08:59 Epinephrine/Pf [Epinephrine-Pf Inj 1 mg/ml (1:1000) Ampule] 1 mg .ROUTE .[facility] ONE Fentanyl Citrate/Pf [Sublimaze Inj/Pf 100 Mcg/2 ml Ampule] 100 mcg .ROUTE .[facility] [place] [facility] ONE 01/01/18 09:00 Ephedrine Sulfate [Ephedrine Sulfate Inj 50 mg/ml Ampule] 50 mg .ROUTE .[facility] ONE Midazolam HCl [Versed 2 mg/2 ml Inj] 2 mg .ROUTE .[facility] ONE Propofol [Diprivan Inj 200 mg/20 ml Vial] [address] ONE 01/01/18 09:01 Bupivacaine HCl/Dex-Water/Pf [Sensorcaine-Dextr 0.75% Inj 2 ml Amp (Spinal)] 2 ml .ROUTE .[facility] ONE 01/01/18 11:21 Diphenhydramine HCl [Benadryl Inj 50 mg/1 ml Vial] 25 mg IV Q6HP PRN Mag Hydrox/Al Hydrox/Simeth [Maalox Plus Susp 30 Udcup] 30 ml PO Q6HP PRN Ondansetron HCl/Pf [Zofran Inj/Pf 4 mg/2 ml Sdv] 4 mg IV Q6HP PRN Ondansetron [Zofran Odt 4 mg Tablet] 4 mg PO Q6HP PRN 01/01/18 13:38 Tranexamic Acid [Tranexamic Acid Inj/Pf 1000 mg/10 ml Sdv] 1,[address] ONE 01/01/18 18:00 Sennosides/Docusate 8.6-50 mg [Senna Plus Tablet] 1 each PO BID 01/01/18 20:30 Mineral Oil/Hydrophil Petrolat [Aquaphor Healing Ointment] 50 gm TP .ASDIR 01/01/18 22:00 Aspirin [Ecotrin 81 mg EC Tablet] 81 mg PO QHS Atorvastatin Calcium [Lipitor 10 mg Tablet] 10 mg PO QHS Montelukast Sodium [Singulair 10 mg Tablet] 10 mg PO QHS 01/02/18 06:00 Lansoprazole [Prevacid 30 mg Odt Tablet] 30 mg PO Q6AM 01/02/18 10:00 Allopurinol [Zyloprim 100 mg Tablet] 100 mg PO DAILY Enoxaparin Sodium [Lovenox Inj 40 mg/0.4 ml Disp.syrin] 40 mg SUBCUT DAILY Levothyroxine Sodium [Synthroid 0.075 mg Tablet] 0.075 mg PO DAILY Multivitamin [Tab-A-Ron (Multiple Vitamin) Tablet] 1 tab PO DAILY 01/03/18 11:33 Naloxone HCl [Narcan Inj/Pf 0.4 mg/1 ml Sdv] 0.4 mg IV Q1HP PRN 01/03/18 22:00 Sodium Bicarbonate [Sodium Bicarbonate 650 mg Tablet] 650 mg PO Q12 01/04/18 08:41 Acetaminophen [Tylenol 325 mg Tablet] 650 mg PO Q6HP PRN 01/04/18 10:00 Docusate Sodium [Colace 100 mg Capsule] 100 mg PO BID Nystatin/Dexameth/Diphen [Magic Mouthwash (Omh Formula) Susp] 5 ml PO TID Psyllium Seed [Metamucil-Sf Powder 5.85 gm Packet] 1 packet PO DAILY 01/04/18 22:00 Cefepime 1 gm/D5w RTU [Maxipime RTU 1 gm/D5w 50 ml Premix Bag] 1 gm in 50 ml IV Q12 Famotidine [Pepcid 20 mg Tablet] 20 mg PO QHS 01/05/18 20:20 Levalbuterol HCl [Xopenex Neb 1.25 mg/3 ml Ampul] 1.25 mg NEB RTQ6HP PRN 01/05/18 22:00 Normal Saline [NaCl 0.9% Inj/Pf 10 ml Sdv] 10 ml IV Q8 01/06/18 09:27 Potassi Cl 20 Meq/50 ml Jamie [Potassium Chloride Jamie 20 Meq/50 ml] 20 meq in 50 ml IV NOW 01/06/18 10:00 Furosemide [Lasix Inj/Pf 20 mg/2 ml Sdv] 20 mg IV Q12 Polyethylene Glycol 3350 [Miralax Powder 17 gm/Packet] 17 gm PO DAILY 01/07/18 08:36 Normal Saline 1000 ml [NaCl 0.9% 1000 ml IV Soln] 1,000 ml IV CONTINUOUS 01/07/18 19:00 Potassi Cl 20 Meq/50 ml Jamie [Potassium Chloride Jamie 20 Meq/50 ml] 20 meq in 50 ml IV Q2A CHEST X-ray: Shows no acute process. There is no infiltrates or evidence of heart failure. EKG:Sinus rhythm. Borderline R wave progression leads V1 to V6. No acute changes. Borderline left axis deviation. IMPRESSION/RECOMMENDATION: 1. Clinically and by chest x-ray no evidence of congestive heart failure. The marginally elevated BNP most likely secondary to patient's renal failure status. 2. Leg edema/extremity edema secondary to volume overload due to acute on chronic renal insufficiency. 3. SIGNIFICANT hypokalemia causing the patient's ileus. Would cautiously replace the patient's potassium. 4. Acute on chronic kidney disease. Nephrology on the case. Would defer to nephrology managing her renal status. 5. Hypertension: Continue current antihypertensives. 6. Hypothyroidism, would recommend rechecking the patient thyroid function test. The patient clinically does look hypothyroid. 7. Mild left ventricular diastolic dysfunction by echocardiographic, but no definite evidence of diastolic heart failure. 8. Status post right hip replacement. 9. Episode of shortness of breath with wheezing? Latent asthma. Would recommend at present continue respiratory inhalation treatments with nebulizers. Will check a bedside PFT or a full PFT later on to see if the patient does indeed have an element of asthma/COPD. 10. Morbid obesity: This should be addressed later when the patient discharged. Patient's medications have been reviewed. Discussed the management plan with attending physician on the case. Medical decision making is at present of moderate complexity. 60 minutes spent on this patient more than 50% of time spent in direct patient care. Will sign off, call if cardiac input is needed this admission. The patient will follow up with me in the office.
[2018-01-07] MEDS: ASPIRIN 81 MG TABLET, ENT COATED PO SCH (21:07)
[2018-01-07] MEDS: ATORVASTATIN CALCIUM 10 MG TABLET PO SCH (21:08)
[2018-01-07] MEDS: FAMOTIDINE 20 MG TABLET PO SCH (21:10)
[2018-01-07] MEDS: MONTELUKAST SODIUM 10 MG TABLET PO SCH (21:10)
[2018-01-08] MEDS: NORMAL SALINE 10 ML SDV (SCHEDULED) IV SCH ×4 (00:34→22:17)
[2018-01-08] MEDS ORDERED: BISACODYL 10 MG SUPP.RECT PR ONE (06:00)
[2018-01-08] MEDS: LANSOPRAZOLE 30 MG TAB.RAP.DR PO SCH (06:08)
[2018-01-08 06:44] LABS: HEMATOCRIT 26.1 % (36.0-47.0); HEMOGLOBIN 8.9 g/dL (12.0-15.5); MEAN CORPUSCULAR HEMOGLOBIN 30.6 pg (27.0-33.4); MEAN CORPUSCULAR HGB CONC 34.2 g/dL (32.0-36.0); MEAN CORPUSCULAR VOLUME 90 fl (80-97); PLATELET COUNT 264 10^3/uL (150-450); RED BLOOD COUNT 2.92 10^6/uL (3.72-5.28); RED CELL DISTRIBUTION WIDTH 14.2 % (11.5-14.0); WHITE BLOOD COUNT 8.8 10^3/uL (4.0-10.5)
[2018-01-08 06:54] LABS: ANION GAP 10 (5-19); BLOOD UREA NITROGEN 24 mg/dL (7-20); CARBON DIOXIDE 23 mmol/L (22-30); CHLORIDE 108 mmol/L (98-107); GLUCOSE 93 mg/dL (75-110); POTASSIUM 3.1 mmol/L (3.6-5.0); SODIUM 141.2 mmol/L (137-145)
[2018-01-08 07:14] LABS: FREE T3 1.53 pg/mL (2.77-5.27); FREE T4 (FREE THYROXINE) 1.31 ng/dL (0.78-2.19)
[2018-01-08 07:27] LABS: THYROID STIMULATING HORMONE 0.98 uIU/mL (0.47-4.68)
[2018-01-08] MEDS ORDERED: ONDANSETRON 4 MG TAB.RAPDIS PO PRN (08:30)
[2018-01-08] MEDS ORDERED: ONDANSETRON HCL INJ/PF 4 MG/2 ML SDV IV PRN (08:30)
--- NOTE | 2018-01-08 09:06 | RADIOLOGY REPORT (SQ) ---
EXAM DESCRIPTION: KUB/ABDOMEN (SINGLE VIEW) COMPLETED DATE/TIME: 01/08/2018 8:48 am REASON FOR STUDY: sbo M16.11 UNILATERAL PRIMARY OSTEOARTHRITIS, RIGHT HIP COMPARISON: None. NUMBER OF VIEWS: One view. TECHNIQUE: Supine radiographic image of the abdomen acquired. LIMITATIONS: None. FINDINGS: BOWEL GAS PATTERN: Marked diffuse dilatation of the colon, particularly from the cecum to the splenic flexure. The maximum transverse diameter of the cecum is 10.5 cm. Gas is identified th roughout the colon and rectum. Mildly distended small bowel loops mid-left side of the abdomen. CALCIFICATIONS: No suspicious calcifications. SOFT TISSUES: No gross mass or suggestion of organomegaly. HARDWARE: None in the abdomen. BONES: No acute fracture. Total right hip arthroplasty. Marked asymmetric narrowing of the left hip joint with subchondral cystic changes in the femoral head and acetabulum. OTHER: A rectal catheter is identified. Prior cholecystectomy. IMPRESSION: 1. Marked diffuse dilatation of the colon, particularly from the cecum to the splenic f lexure. Correlation suggested. 2. Rectal catheter is identified. 3. Total right hip arthroplasty. Marked severe left hip arthrosis. TECHNICAL DOCUMENTATION: JOB ID: [id number] [employer]- All Rights Reserved Reading location - IP/workstation name: [email or web address]
[2018-01-08] MEDS: ALLOPURINOL 100 MG TABLET PO SCH (09:15)
[2018-01-08] MEDS: LEVOTHYROXINE SODIUM 0.075 MG TABLET PO SCH (09:15)
[2018-01-08] MEDS: MULTIVITAMIN TABLET PO SCH (09:15)
[2018-01-08] MEDS: SODIUM BICARBONATE 650 MG TABLET PO SCH (09:15)
[2018-01-08] MEDS: ENOXAPARIN SODIUM INJ 40 MG/0.4 ML DISP.SYRIN SUBCUT SCH (09:15)
[2018-01-08] MEDS: POTASSIUM CHLORIDE 20 MEQ/50 ML RTU IV SCH ×2 (09:16→11:29)
[2018-01-08] MEDS: NYSTATIN/DEXAMETH/DIPHEN SUSP 120 ML PO SCH ×3 (09:16→18:34)
--- NOTE | 2018-01-08 10:11 | PDOC PROGRESS REPORT ---
Subjective Progress Note for:: 01/08/18 Subjective:: no c/o; patient reports large amount of liquid stools this AM after on-call surgeon rectal exam Reason For Visit: RIGHT HIP ARTHRITIS Physical Exam Vital Signs: Temp Pulse Resp BP Pulse Ox 98.2 F 104 H 20 146/64 H 100 01/08/18 07:48 01/08/18 07:48 01/08/18 07:48 01/08/18 07:48 01/08/18 07:48 Intake & Output 01/07/18 01/08/18 01/09/18 06:59 06:59 06:59 Intake Total 589 954 Output Total 1450 Balance -861 954 Weight 115.2 kg General appearance: PRESENT: no acute distress Respiratory exam: PRESENT: clear to auscultation scooby Cardiovascular exam: PRESENT: RRR GI/Abdominal exam: PRESENT: hypoactive bowel sounds, soft Results Laboratory Results: 01/08/18 05:30 01/08/18 05:30 01/07/18 01/07/18 01/07/18 09:50 11:33 17:42 WBC RBC Hgb Hct MCV MCH MCHC RDW Plt Count Carbonic Acid 1.22 HCO3/H2CO3 Ratio 16:1 ABG pH 7.31 L ABG pCO2 40.5 ABG pO2 58.0 L ABG HCO3 20.0 ABG O2 Saturation 87.8 L ABG Base Excess -5.8 FiO2 ROOM AIR Sodium 140.8 Potassium 3.0 L* Chloride 108 H Carbon Dioxide 23 Anion Gap 10 BUN 25 H Creatinine 1.20 Est GFR ( Amer) 53 L Est GFR (Non-Af Amer) 43 L Glucose 104 Calcium 8.0 L Ammonia < 8.7 L TSH Free T4 Free T3 pg/mL 01/08/18 01/08/18 01/08/18 05:30 05:30 05:30 WBC 8.8 RBC 2.92 L Hgb 8.9 L Hct 26.1 L MCV 90 MCH 30.6 MCHC 34.2 RDW 14.2 H Plt Count 264 Carbonic Acid HCO3/H2CO3 Ratio ABG pH ABG pCO2 ABG pO2 ABG HCO3 ABG O2 Saturation ABG Base Excess FiO2 Sodium 141.2 Potassium 3.1 L Chloride 108 H Carbon Dioxide 23 Anion Gap 10 BUN 24 H Creatinine 1.13 Est GFR ( Amer) 56 L Est GFR (Non-Af Amer) 47 L Glucose 93 Calcium 8.0 L Ammonia TSH 0.98 Free T4 1.31 Free T3 pg/mL 1.53 L 01/04/18 07:55 Batista Catheter Urine Culture - Final Yeast, Not Alannah Albicans 01/07/18 05:25 NT-Pro-B Natriuret Pep 1080 H Impressions: Pelvis X-Ray 01/01/18 11:22 IMPRESSION: Right hip arthroplasty. Chest X-Ray 01/07/18 00:00 IMPRESSION: STABLE APPEARANCE. NO ACUTE RADIOGRAPHIC FINDING IN THE CHEST. Head CT 01/07/18 00:00 IMPRESSION: NORMAL BRAIN CT WITHOUT CONTRAST. EVIDENCE OF ACUTE STROKE: NO. KUB X-Ray 01/08/18 08:02 IMPRESSION: 1. Marked diffuse dilatation of the colon, particularly from the cecum to the splenic flexure. Correlation suggested. 2. Rectal catheter is identified. 3. Total right hip arthroplasty. Marked severe left hip arthrosis. Assessment & Plan - Diagnosis (1) Ileus Is this a current diagnosis for this admission?: Yes - Plan Summary Plan Summary: A/ large liquid stool this AM No abdominal pain Potassium still low today (3.1) despite replacement Slow drifting down of H/H (8.9/26.1) Today's KUB shows very dilated right colon and transverse colon (max diameter of cecum 10.5 cm) P/ Ok to advance diet to full liquid diet Check stools for cx and C. difficilis K replaced as per protocol No acute General Surgery issues identified
--- NOTE | 2018-01-08 13:25 | PDOC PROGRESS REPORT ---
Subjective Progress Note for:: 01/08/18 Subjective:: Patient is feeling much better this morning And is more alert awake oriented Patient's denied any chest pain denied any shortness of the breath Have a large bowel movement Patient's KUB is all stable seen by the general surgery and suggest to start the p.o. intake Reason For Visit: RIGHT HIP ARTHRITIS Physical Exam Vital Signs: Temp Pulse Resp BP Pulse Ox 97.9 F 108 H 20 146/56 H 93 01/08/18 10:22 01/08/18 10:22 01/08/18 10:22 01/08/18 10:22 01/08/18 10:22 Intake & Output 01/07/18 01/08/18 01/09/18 06:59 06:59 06:59 Intake Total 589 1004 Output Total 1450 Balance -861 1004 Weight 115.2 kg General appearance: PRESENT: no acute distress, well-developed, well-nourished Head exam: PRESENT: atraumatic, normocephalic Eye exam: PRESENT: conjunctiva pink, EOMI, PERRLA. ABSENT: scleral icterus Ear exam: PRESENT: normal external ear exam Mouth exam: PRESENT: moist, tongue midline Neck exam: PRESENT: full ROM. ABSENT: carotid bruit, JVD, lymphadenopathy, thyromegaly Respiratory exam: PRESENT: clear to auscultation scooby Cardiovascular exam: PRESENT: RRR. ABSENT: diastolic murmur, rubs, systolic murmur Pulses: PRESENT: normal dorsalis pedis pul, +2 pedal pulses bilateral Vascular exam: PRESENT: normal capillary refill GI/Abdominal exam: PRESENT: normal bowel sounds, soft. ABSENT: distended, guarding, mass, organolmegaly, rebound, tenderness Rectal exam: PRESENT: deferred Extremities exam: ABSENT: pedal edema Musculoskeletal exam: PRESENT: ambulatory Neurological exam: PRESENT: alert, awake, oriented to person, oriented to place , oriented to time, oriented to situation, CN II-XII grossly intact. ABSENT: motor sensory deficit Psychiatric exam: PRESENT: appropriate affect, normal mood. ABSENT: homicidal ideation, suicidal ideation Skin exam: PRESENT: dry, intact, warm. ABSENT: cyanosis, rash Results Laboratory Results: 01/08/18 05:30 01/08/18 05:30 01/07/18 01/08/18 01/08/18 17:42 05:30 05:30 WBC RBC Hgb Hct MCV MCH MCHC RDW Plt Count Sodium 140.8 141.2 Potassium 3.0 L* 3.1 L Chloride 108 H 108 H Carbon Dioxide 23 23 Anion Gap 10 10 BUN 25 H 24 H Creatinine 1.20 1.13 Est GFR ( Amer) 53 L 56 L Est GFR (Non-Af Amer) 43 L 47 L Glucose 104 93 Calcium 8.0 L 8.0 L TSH 0.98 Free T4 1.31 Free T3 pg/mL 1.53 L 01/08/18 05:30 WBC 8.8 RBC 2.92 L Hgb 8.9 L Hct 26.1 L MCV 90 MCH 30.6 MCHC 34.2 RDW 14.2 H Plt Count 264 Sodium Potassium Chloride Carbon Dioxide Anion Gap BUN Creatinine Est GFR ( Amer) Est GFR (Non-Af Amer) Glucose Calcium TSH Free T4 Free T3 pg/mL 01/04/18 07:55 Batista Catheter Urine Culture - Final Yeast, Not Alannah Albicans 01/07/18 05:25 NT-Pro-B Natriuret Pep 1080 H Impressions: Pelvis X-Ray 01/01/18 11:22 IMPRESSION: Right hip arthroplasty. Chest X-Ray 01/07/18 00:00 IMPRESSION: STABLE APPEARANCE. NO ACUTE RADIOGRAPHIC FINDING IN THE CHEST. Head CT 01/07/18 00:00 IMPRESSION: NORMAL BRAIN CT WITHOUT CONTRAST. EVIDENCE OF ACUTE STROKE: NO. KUB X-Ray 01/08/18 08:02 IMPRESSION: 1. Marked diffuse dilatation of the colon, particularly from the cecum to the splenic flexure. Correlation suggested. 2. Rectal catheter is identified. 3. Total right hip arthroplasty. Marked severe left hip arthrosis. Assessment & Plan - Diagnosis (1) Hip joint replacement status Qualifiers: Laterality: right Qualified Code(s): Z96.641 - Presence of right artificial hip joint Is this a current diagnosis for this admission?: Yes Plan: Continues to follow with the orthopedic surgery (2) Hypertension Qualifiers: Hypertension type: essential hypertension Qualified Code(s): I10 - Essential (primary) hypertension Is this a current diagnosis for this admission?: Yes Plan: Patient is currently hold all blood pressure medications (3) Chronic kidney disease Qualifiers: Chronic kidney disease stage: stage 3 (moderate) Qualified Code(s): N18.3 - Chronic kidney disease, stage 3 (moderate) Is this a current diagnosis for this admission?: Yes Plan: All improving replaced IV potassium (4) Congestive heart failure Qualifiers: Heart failure type: diastolic Heart failure chronicity: chronic Qualified Code(s): I50.32 - Chronic diastolic (congestive) heart failure Is this a current diagnosis for this admission?: Yes Plan: According to the benefit director all stable (5) Hyperlipidemia Qualifiers: Hyperlipidemia type: unspecified Qualified Code(s): E78.5 - Hyperlipidemia , unspecified Is this a current diagnosis for this admission?: Yes (6) Arthritis Is this a current diagnosis for this admission?: Yes (7) Coronary arteriosclerosis Is this a current diagnosis for this admission?: Yes Plan: Repeat the EKG today (8) Impaired fasting glucose Is this a current diagnosis for this admission?: Yes Plan: check bs (9) Fever Qualifiers: Fever type: unspecified Qualified Code(s): R50.9 - Fever, unspecified Is this a current diagnosis for this admission?: Yes Plan: Patient's all cultures negative will repeat the chest x-ray (10) Ileus Is this a current diagnosis for this admission?: Yes Plan: Follow with the surgery (11) Encephalopathy Is this a current diagnosis for this admission?: Yes Plan: Likely a metabolic currently all resolving - Time Time Spent with patient: 15-24 minutes Medications reviewed and adjusted accordingly: Yes Anticipated discharge: SNF Within: Other - Inpatient Certification Based on my medical assessment, after consideration of the patient's comorbidities, presenting symptoms, or acuity I expect that the services needed warrant INPATIENT care.: Yes I certify that my determination is in accordance with my understanding of Medicare's requirements for reasonable and necessary INPATIENT services [42 CFR 412.3e].: Yes Medical Necessity: Need Close Monitoring Due to Risk of Patient Decompensation Post Hospital Care: D/C Manager Concrete Documentation - Plan Summary Plan Summary: Continues to current medications replace the potassiums
[2018-01-08] MEDS: CEFEPIME 1 GM/D5W RTU 1 GM/50 ML RTUPB IV SCH (13:38)
[2018-01-08] MEDS: FUROSEMIDE INJ/PF 20 MG/2 ML SDV IV SCH (13:43)
[2018-01-08 17:33] LABS: ANION GAP 7 (5-19); BLOOD UREA NITROGEN 24 mg/dL (7-20); CALCIUM 8.3 mg/dL (8.4-10.2); CARBON DIOXIDE 23 mmol/L (22-30); CHLORIDE 109 mmol/L (98-107); GLUCOSE 117 mg/dL (75-110); POTASSIUM 3.1 mmol/L (3.6-5.0); SODIUM 139.4 mmol/L (137-145)
--- NOTE | 2018-01-08 18:59 | PDOC PROGRESS REPORT ---
Subjective Progress Note for:: 01/08/18 Subjective:: I saw the patient today for Dr. Souza. Patient tells me that she feels like she is getting better and denies any chest pains no shortness of breath. She still on a liquid diet. She is making urine although it is dark and tea colored. Her potassium has been low for the last couple of days and is seems to be resistant to potassium supplements. Patient does not have any other further complaints otherwise but it does not seem like she is a good historian. She tells me that she usually takes potassium orally at home twice a day and also Lasix once a day. Her nurse is also telling me that she is having loose stools. Reason For Visit: Hypokalemia, AK I Physical Exam Vital Signs: Temp Pulse Resp BP Pulse Ox 98.3 F 88 20 141/51 H 100 01/08/18 15:51 01/08/18 15:51 01/08/18 15:51 01/08/18 15:51 01/08/18 15:51 Intake & Output 01/07/18 01/08/18 01/09/18 06:59 06:59 06:59 Intake Total 589 2204 Output Total 1450 600 Balance -861 1604 Weight 115.2 kg Exam: General appearance: PRESENT: no acute distress, cooperative, well-developed, well-nourished Head exam: PRESENT: atraumatic, normocephalic Eye exam: PRESENT: conjunctiva pale, PERRLA. ABSENT: scleral icterus Neck exam: ABSENT: JVD Respiratory exam: PRESENT: Diminished breath sounds. ABSENT: crackles, rales, rhonchi, unlabored, wheezes Cardiovascular exam: PRESENT: Regular rate rhythm -+S1, +S2. ABSENT: diastolic murmur, systolic murmur GI/Abdominal exam: PRESENT: normal bowel sounds, soft. ABSENT: guarding, mass, tenderness Extremities exam: Grade 1-2 bilateral lower extremity pitting edema Neurological exam: PRESENT: alert, awake, oriented to person, place and time. Skin exam: PRESENT: dry, warm, Cardiovascular exam: PRESENT: +S1, +S2, systolic murmur GI/Abdominal exam: PRESENT: distended - Mild. She feels gaseous., normal bowel sounds, soft. ABSENT: rebound, tenderness Results Laboratory Results: 01/08/18 05:30 01/08/18 16:32 01/08/18 01/08/18 01/08/18 05:30 05:30 05:30 WBC 8.8 RBC 2.92 L Hgb 8.9 L Hct 26.1 L MCV 90 MCH 30.6 MCHC 34.2 RDW 14.2 H Plt Count 264 Sodium 141.2 Potassium 3.1 L Chloride 108 H Carbon Dioxide 23 Anion Gap 10 BUN 24 H Creatinine 1.13 Est GFR ( Amer) 56 L Est GFR (Non-Af Amer) 47 L Glucose 93 Calcium 8.0 L TSH 0.98 Free T4 1.31 Free T3 pg/mL 1.53 L 01/08/18 16:32 WBC RBC Hgb Hct MCV MCH MCHC RDW Plt Count Sodium 139.4 Potassium 3.1 L Chloride 109 H Carbon Dioxide 23 Anion Gap 7 BUN 24 H Creatinine 0.98 Est GFR ( Amer) > 60 Est GFR (Non-Af Amer) 55 L Glucose 117 H Calcium 8.3 L TSH Free T4 Free T3 pg/mL 01/04/18 07:55 Batista Catheter Urine Culture - Final Yeast, Not Alannah Albicans 01/07/18 05:25 NT-Pro-B Natriuret Pep 1080 H Impressions: Pelvis X-Ray 01/01/18 11:22 IMPRESSION: Right hip arthroplasty. Chest X-Ray 01/07/18 00:00 IMPRESSION: STABLE APPEARANCE. NO ACUTE RADIOGRAPHIC FINDING IN THE CHEST. Head CT 01/07/18 00:00 IMPRESSION: NORMAL BRAIN CT WITHOUT CONTRAST. EVIDENCE OF ACUTE STROKE: NO. KUB X-Ray 01/08/18 08:02 IMPRESSION: 1. Marked diffuse dilatation of the colon, particularly from the cecum to the splenic flexure. Correlation suggested. 2. Rectal catheter is identified. 3. Total right hip arthroplasty. Marked severe left hip arthrosis. Assessment & Plan - Diagnosis (1) Hypokalemia Is this a current diagnosis for this admission?: Yes Plan: This is due to diuretics. Agree with decreasing the Lasix to 20 mg IV daily. I will give her another potassium rider of 40 mEq tonight. I will start her on potassium chloride 20 mEq p.o. every 12 hours. Discontinue sodium bicarbonate. Monitor potassium level. (2) MEDINA (acute kidney injury) Is this a current diagnosis for this admission?: Yes Plan: Multifactorial causes due to initial hypotension and NSAID use. Currently resolved and at baseline. (3) Chronic kidney disease, stage III (moderate) Is this a current diagnosis for this admission?: Yes (4) Congestive heart failure Qualifiers: Heart failure type: diastolic Heart failure chronicity: chronic Qualified Code(s): I50.32 - Chronic diastolic (congestive) heart failure Is this a current diagnosis for this admission?: Yes (5) Hypertension Qualifiers: Hypertension type: essential hypertension Qualified Code(s): I10 - Essential (primary) hypertension Is this a current diagnosis for this admission?: Yes Plan: Blood pressure acceptable. - Time Time with patient: 15-25 minutes
[2018-01-08] MEDS: POTASSI CL 20 MEQ/50 ML RIDER 20 MEQ/50 ML RTUPB IV SCH ×2 (20:45→23:06)
[2018-01-08] MEDS: POTASSIUM CHLORIDE 10 MEQ CAPSULE.ER PO SCH (22:12)
[2018-01-08] MEDS: FAMOTIDINE 20 MG TABLET PO SCH (22:12)
[2018-01-08] MEDS: ASPIRIN 81 MG TABLET, ENT COATED PO SCH (22:12)
[2018-01-08] MEDS: MONTELUKAST SODIUM 10 MG TABLET PO SCH (22:13)
[2018-01-08] MEDS: ATORVASTATIN CALCIUM 10 MG TABLET PO SCH (22:13)
[2018-01-09] MEDS: CEFEPIME 1 GM/D5W RTU 1 GM/50 ML RTUPB IV SCH (00:01)
[2018-01-09] MEDS: LANSOPRAZOLE 30 MG TAB.RAP.DR PO SCH (05:49)
[2018-01-09] MEDS: LEVOTHYROXINE SODIUM 0.075 MG TABLET PO SCH (05:49)
[2018-01-09] MEDS: NORMAL SALINE 10 ML SDV (SCHEDULED) IV SCH ×3 (05:49→21:22)
[2018-01-09 06:08] LABS: ANION GAP 5 (5-19); BLOOD UREA NITROGEN 22 mg/dL (7-20); CALCIUM 8.2 mg/dL (8.4-10.2); CARBON DIOXIDE 25 mmol/L (22-30); CHLORIDE 111 mmol/L (98-107); GLUCOSE 105 mg/dL (75-110); POTASSIUM 3.3 mmol/L (3.6-5.0); SODIUM 140.5 mmol/L (137-145)
--- NOTE | 2018-01-09 06:46 | PDOC PROGRESS REPORT ---
Subjective Progress Note for:: 01/09/18 Reason For Visit: RIGHT HIP ARTHRITIS 77-year-old white female now postop day 8 status post right hip arthroplasty. Patient had relatively good day yesterday. She tolerated liquid diet and ambulated 30 feet with physical therapy. Physical Exam Vital Signs: Temp Pulse Resp BP Pulse Ox 38.1 C H 107 H 22 H 148/52 H 92 01/09/18 00:10 01/09/18 02:00 01/09/18 00:10 01/09/18 00:10 01/09/18 00:10 Intake & Output 01/07/18 01/08/18 01/09/18 06:59 06:59 06:59 Intake Total 589 3073 Output Total 1450 600 Balance -861 2473 Weight 115.2 kg General appearance: PRESENT: no acute distress, obese Head exam: PRESENT: normocephalic Respiratory exam: PRESENT: unlabored Cardiovascular exam: PRESENT: RRR Pulses: PRESENT: +1 pedal pulses bilateral Vascular exam: PRESENT: normal capillary refill GI/Abdominal exam: PRESENT: soft Rectal exam: PRESENT: deferred Neurological exam: PRESENT: alert, awake, oriented to person, oriented to place , oriented to time, oriented to situation. ABSENT: motor sensory deficit Psychiatric exam: PRESENT: appropriate affect, normal mood. ABSENT: homicidal ideation, suicidal ideation Skin exam: PRESENT: dry, intact, warm. ABSENT: cyanosis, rash Results Laboratory Results: 01/08/18 05:30 01/09/18 05:30 01/08/18 01/08/18 01/08/18 05:30 05:30 05:30 WBC 8.8 RBC 2.92 L Hgb 8.9 L Hct 26.1 L MCV 90 MCH 30.6 MCHC 34.2 RDW 14.2 H Plt Count 264 Sodium 141.2 Potassium 3.1 L Chloride 108 H Carbon Dioxide 23 Anion Gap 10 BUN 24 H Creatinine 1.13 Est GFR ( Amer) 56 L Est GFR (Non-Af Amer) 47 L Glucose 93 Calcium 8.0 L Phosphorus TSH 0.98 Free T4 1.31 Free T3 pg/mL 1.53 L 01/08/18 01/09/18 16:32 05:30 WBC RBC Hgb Hct MCV MCH MCHC RDW Plt Count Sodium 139.4 140.5 Potassium 3.1 L 3.3 L Chloride 109 H 111 H Carbon Dioxide 23 25 Anion Gap 7 5 BUN 24 H 22 H Creatinine 0.98 0.93 Est GFR ( Amer) > 60 > 60 Est GFR (Non-Af Amer) 55 L 58 L Glucose 117 H 105 Calcium 8.3 L 8.2 L Phosphorus 1.0 L TSH Free T4 Free T3 pg/mL 01/07/18 05:25 NT-Pro-B Natriuret Pep 1080 H Impressions: Pelvis X-Ray 01/01/18 11:22 IMPRESSION: Right hip arthroplasty. Chest X-Ray 01/07/18 00:00 IMPRESSION: STABLE APPEARANCE. NO ACUTE RADIOGRAPHIC FINDING IN THE CHEST. Head CT 01/07/18 00:00 IMPRESSION: NORMAL BRAIN CT WITHOUT CONTRAST. EVIDENCE OF ACUTE STROKE: NO. KUB X-Ray 01/08/18 08:02 IMPRESSION: 1. Marked diffuse dilatation of the colon, particularly from the cecum to the splenic flexure. Correlation suggested. 2. Rectal catheter is identified. 3. Total right hip arthroplasty. Marked severe left hip arthrosis. Status: Imported from PACS Assessment & Plan - Diagnosis (1) Hip joint replacement status Qualifiers: Laterality: right Qualified Code(s): Z96.641 - Presence of right artificial hip joint Is this a current diagnosis for this admission?: Yes Plan: Patient to be continued to be mobilized with physical therapy. Advance to regular diet. Discontinue Batista. Anticipate transfer to [facility] nursing facility when bed available. - Time Time Spent with patient: 15-24 minutes Anticipated discharge: SNF Within: when bed available
--- NOTE | 2018-01-09 09:53 | PDOC PROGRESS REPORT ---
Subjective Progress Note for:: 01/09/18 Subjective:: patient sleepy but arousable, reports one loose bowel movement this AM; full liquid diet tolerated Reason For Visit: RIGHT HIP ARTHRITIS Physical Exam Vital Signs: Temp Pulse Resp BP Pulse Ox 97.3 F 88 20 165/57 H 95 01/09/18 07:47 01/09/18 07:47 01/09/18 07:47 01/09/18 07:47 01/09/18 07:47 Intake & Output 01/08/18 01/09/18 01/10/18 06:59 06:59 06:59 Intake Total 589 3173 Output Total 1450 600 375 Balance -861 2573 -375 Weight 115.2 kg General appearance: PRESENT: other - sleepy, arousable Respiratory exam: PRESENT: clear to auscultation scooby Cardiovascular exam: PRESENT: RRR GI/Abdominal exam: PRESENT: soft Results Laboratory Results: 01/08/18 05:30 01/09/18 05:30 01/08/18 01/09/18 01/09/18 16:32 05:30 08:21 Sodium 139.4 140.5 Potassium 3.1 L 3.3 L Chloride 109 H 111 H Carbon Dioxide 23 25 Anion Gap 7 5 BUN 24 H 22 H Creatinine 0.98 0.93 Est GFR ( Amer) > 60 > 60 Est GFR (Non-Af Amer) 55 L 58 L Glucose 117 H 105 Calcium 8.3 L 8.2 L Phosphorus 1.0 L Stool for White Cells NO WBCs SEEN 01/07/18 05:25 NT-Pro-B Natriuret Pep 1080 H Impressions: Pelvis X-Ray 01/01/18 11:22 IMPRESSION: Right hip arthroplasty. Chest X-Ray 01/07/18 00:00 IMPRESSION: STABLE APPEARANCE. NO ACUTE RADIOGRAPHIC FINDING IN THE CHEST. Head CT 01/07/18 00:00 IMPRESSION: NORMAL BRAIN CT WITHOUT CONTRAST. EVIDENCE OF ACUTE STROKE: NO. KUB X-Ray 01/08/18 08:02 IMPRESSION: 1. Marked diffuse dilatation of the colon, particularly from the cecum to the splenic flexure. Correlation suggested. 2. Rectal catheter is identified. 3. Total right hip arthroplasty. Marked severe left hip arthrosis. Assessment & Plan - Diagnosis (1) Ileus Is this a current diagnosis for this admission?: Yes - Plan Summary Plan Summary: A/ Resolved postoperative ileus Liquid stools yesterday and today: C. Difficilis negative today Full liquid diet tolerated Abdomen soft No acute General Surgery issues identified P/ Batista out Advance to regular diet Send additional specimen for C. Difficilis today I will sign off. Please, call me with questions
[2018-01-09] MEDS ORDERED: FUROSEMIDE INJ/PF 20 MG/2 ML SDV IV SCH (10:00)
[2018-01-09] MEDS: NYSTATIN/DEXAMETH/DIPHEN SUSP 120 ML PO SCH ×3 (10:22→17:49)
--- NOTE | 2018-01-09 10:47 | PDOC PROGRESS REPORT ---
Subjective Progress Note for:: 01/09/18 Subjective:: Patient is feeling much better Loose stool but patient's C. difficile negative Patient's denied any chest pain denied any shortness of breath Patient's potassium is getting better but still low Reason For Visit: RIGHT HIP ARTHRITIS Physical Exam Vital Signs: Temp Pulse Resp BP Pulse Ox 97.3 F 88 20 165/57 H 95 01/09/18 07:47 01/09/18 07:47 01/09/18 07:47 01/09/18 07:47 01/09/18 07:47 Intake & Output 01/08/18 01/09/18 01/10/18 06:59 06:59 06:59 Intake Total 589 3173 Output Total 1450 600 375 Balance -861 2573 -375 Weight 115.2 kg General appearance: PRESENT: no acute distress, well-developed, well-nourished Head exam: PRESENT: atraumatic, normocephalic Eye exam: PRESENT: conjunctiva pink, EOMI, PERRLA. ABSENT: scleral icterus Ear exam: PRESENT: normal external ear exam Mouth exam: PRESENT: moist, tongue midline Neck exam: PRESENT: full ROM. ABSENT: carotid bruit, JVD, lymphadenopathy, thyromegaly Respiratory exam: PRESENT: clear to auscultation scooby Cardiovascular exam: PRESENT: RRR. ABSENT: diastolic murmur, rubs, systolic murmur Pulses: PRESENT: normal dorsalis pedis pul, +2 pedal pulses bilateral Vascular exam: PRESENT: normal capillary refill GI/Abdominal exam: PRESENT: normal bowel sounds, soft. ABSENT: distended, guarding, mass, organolmegaly, rebound, tenderness Rectal exam: PRESENT: deferred Extremities exam: ABSENT: pedal edema Musculoskeletal exam: PRESENT: ambulatory Neurological exam: PRESENT: alert, awake, oriented to person, oriented to place , oriented to time, oriented to situation, CN II-XII grossly intact. ABSENT: motor sensory deficit Psychiatric exam: PRESENT: appropriate affect, normal mood. ABSENT: homicidal ideation, suicidal ideation Skin exam: PRESENT: dry, intact, warm. ABSENT: cyanosis, rash Results Laboratory Results: 01/08/18 05:30 01/09/18 05:30 01/08/18 01/09/18 01/09/18 16:32 05:30 08:21 Sodium 139.4 140.5 Potassium 3.1 L 3.3 L Chloride 109 H 111 H Carbon Dioxide 23 25 Anion Gap 7 5 BUN 24 H 22 H Creatinine 0.98 0.93 Est GFR ( Amer) > 60 > 60 Est GFR (Non-Af Amer) 55 L 58 L Glucose 117 H 105 Calcium 8.3 L 8.2 L Phosphorus 1.0 L Stool for White Cells NO WBCs SEEN 01/07/18 05:25 NT-Pro-B Natriuret Pep 1080 H Impressions: Pelvis X-Ray 01/01/18 11:22 IMPRESSION: Right hip arthroplasty. Chest X-Ray 01/07/18 00:00 IMPRESSION: STABLE APPEARANCE. NO ACUTE RADIOGRAPHIC FINDING IN THE CHEST. Head CT 01/07/18 00:00 IMPRESSION: NORMAL BRAIN CT WITHOUT CONTRAST. EVIDENCE OF ACUTE STROKE: NO. KUB X-Ray 01/08/18 08:02 IMPRESSION: 1. Marked diffuse dilatation of the colon, particularly from the cecum to the splenic flexure. Correlation suggested. 2. Rectal catheter is identified. 3. Total right hip arthroplasty. Marked severe left hip arthrosis. Assessment & Plan - Diagnosis (1) Hip joint replacement status Qualifiers: Laterality: right Qualified Code(s): Z96.641 - Presence of right artificial hip joint Is this a current diagnosis for this admission?: Yes Plan: Continues to follow with the orthopedic surgery (2) Hypertension Qualifiers: Hypertension type: essential hypertension Qualified Code(s): I10 - Essential (primary) hypertension Is this a current diagnosis for this admission?: Yes Plan: Patient is currently hold all blood pressure medications (3) Chronic kidney disease Qualifiers: Chronic kidney disease stage: stage 3 (moderate) Qualified Code(s): N18.3 - Chronic kidney disease, stage 3 (moderate) Is this a current diagnosis for this admission?: Yes Plan: All improving replaced IV potassium (4) Congestive heart failure Qualifiers: Heart failure type: diastolic Heart failure chronicity: chronic Qualified Code(s): I50.32 - Chronic diastolic (congestive) heart failure Is this a current diagnosis for this admission?: Yes Plan: Continues to p.o. Lasix (5) Hyperlipidemia Qualifiers: Hyperlipidemia type: unspecified Qualified Code(s): E78.5 - Hyperlipidemia , unspecified Is this a current diagnosis for this admission?: Yes (6) Arthritis Is this a current diagnosis for this admission?: Yes (7) Coronary arteriosclerosis Is this a current diagnosis for this admission?: Yes Plan: Repeat the EKG today (8) Impaired fasting glucose Is this a current diagnosis for this admission?: Yes (9) Fever Qualifiers: Fever type: unspecified Qualified Code(s): R50.9 - Fever, unspecified Is this a current diagnosis for this admission?: Yes Plan: All cultures negative will DC the IV antibiotic (10) Ileus Is this a current diagnosis for this admission?: Yes Plan: Currently all resolved (11) Encephalopathy Is this a current diagnosis for this admission?: Yes - Time Time Spent with patient: 15-24 minutes Medications reviewed and adjusted accordingly: Yes Anticipated discharge: SNF Within: Other - Inpatient Certification I certify that my determination is in accordance with my understanding of Medicare's requirements for reasonable and necessary INPATIENT services [42 CFR 412.3e].: Yes Medical Necessity: Need Close Monitoring Due to Risk of Patient Decompensation Post Hospital Care: D/C Surveillance Sensor Operator Documentation - Plan Summary Plan Summary: Replace the potassium
[2018-01-09] MEDS: ENOXAPARIN SODIUM INJ 40 MG/0.4 ML DISP.SYRIN SUBCUT SCH (10:53)
[2018-01-09] MEDS: POTASSIUM CHLORIDE 10 MEQ CAPSULE.ER PO SCH ×2 (10:53→21:22)
[2018-01-09] MEDS: ALLOPURINOL 100 MG TABLET PO SCH (10:53)
[2018-01-09] MEDS: MULTIVITAMIN TABLET PO SCH (10:53)
[2018-01-09] MEDS: POTASSIUM CHLORIDE 20 MEQ/50 ML RTU IV SCH ×2 (12:03→14:09)
[2018-01-09 17:14] LABS: ANION GAP 5 (5-19); BLOOD UREA NITROGEN 17 mg/dL (7-20); GLUCOSE 115 mg/dL (75-110)
[2018-01-09 17:19] LABS: CARBON DIOXIDE 24 mmol/L (22-30); CHLORIDE 113 mmol/L (98-107)
[2018-01-09] MEDS: LACTOBACILLUS ACIDOPHILUS 250 MG TAB PO SCH (17:53)
[2018-01-09 18:20] LABS: ALBUMIN 1.8 g/dL (3.5-5.0)
--- NOTE | 2018-01-09 20:30 | PDOC PROGRESS REPORT ---
Subjective Progress Note for:: 01/09/18 Subjective:: Patient is doing well and does not have any new complaints. She continues to have hypokalemia despite potassium supplements. She is making about 500-600 mL of urine output despite IV Lasix. She is also continuing to have loose stools. Reason For Visit: RIGHT HIP ARTHRITIS Physical Exam Vital Signs: Temp Pulse Resp BP Pulse Ox 97.3 F 91 15 165/57 H 95 01/09/18 07:47 01/09/18 14:00 01/09/18 11:08 01/09/18 07:47 01/09/18 11:08 Intake & Output 01/08/18 01/09/18 01/10/18 06:59 06:59 06:59 Intake Total 589 3173 336 Output Total 1450 600 550 Balance -861 2573 -214 Weight 115.2 kg Exam: General appearance: PRESENT: no acute distress, cooperative, well-developed, well-nourished Head exam: PRESENT: atraumatic, normocephalic Eye exam: PRESENT: conjunctiva slightly pale, PERRLA. ABSENT: scleral icterus Neck exam: ABSENT: JVD Respiratory exam: PRESENT: Diminished breath sounds. ABSENT: crackles, rales, rhonchi, unlabored, wheezes Cardiovascular exam: PRESENT: Regular rate rhythm -+S1, +S2. ABSENT: diastolic murmur, systolic murmur GI/Abdominal exam: PRESENT: normal bowel sounds, soft. ABSENT: guarding, mass, tenderness Extremities exam: Improved lower extremity edema Neurological exam: PRESENT: alert, awake, oriented to person, place and time. Skin exam: PRESENT: dry, warm, Cardiovascular exam: PRESENT: +S1, +S2, systolic murmur GI/Abdominal exam: PRESENT: distended - Mild. She feels gaseous., normal bowel sounds, soft. ABSENT: rebound, tenderness Results Laboratory Results: 01/08/18 05:30 01/09/18 16:30 01/09/18 01/09/18 01/09/18 05:30 08:21 16:30 Sodium 140.5 142.0 Potassium 3.3 L 3.0 L* Chloride 111 H 113 H Carbon Dioxide 25 24 Anion Gap 5 5 BUN 22 H 17 Creatinine 0.93 0.84 Est GFR ( Amer) > 60 > 60 Est GFR (Non-Af Amer) 58 L > 60 Glucose 105 115 H Calcium 8.2 L 7.0 L* Phosphorus 1.0 L Magnesium Albumin Stool for White Cells NO WBCs SEEN 01/09/18 16:30 Sodium Potassium Chloride Carbon Dioxide Anion Gap BUN Creatinine Est GFR ( Amer) Est GFR (Non-Af Amer) Glucose Calcium Phosphorus Magnesium 1.6 Albumin 1.8 L Stool for White Cells 01/04/18 10:17 Blood Blood Culture - Final NO GROWTH IN 5 DAYS 01/04/18 10:07 Blood Blood Culture - Final NO GROWTH IN 5 DAYS 01/07/18 05:25 NT-Pro-B Natriuret Pep 1080 H Impressions: Pelvis X-Ray 01/01/18 11:22 IMPRESSION: Right hip arthroplasty. Chest X-Ray 01/07/18 00:00 IMPRESSION: STABLE APPEARANCE. NO ACUTE RADIOGRAPHIC FINDING IN THE CHEST. Head CT 01/07/18 00:00 IMPRESSION: NORMAL BRAIN CT WITHOUT CONTRAST. EVIDENCE OF ACUTE STROKE: NO. KUB X-Ray 01/08/18 08:02 IMPRESSION: 1. Marked diffuse dilatation of the colon, particularly from the cecum to the splenic flexure. Correlation suggested. 2. Rectal catheter is identified. 3. Total right hip arthroplasty. Marked severe left hip arthrosis. Assessment & Plan - Diagnosis (1) Hypokalemia Is this a current diagnosis for this admission?: Yes Plan: Continue potassium replacement as needed intravenously plus the scheduled potassium chloride that I started her on on. I will discontinue the Lasix for now. Part of the hypokalemia is because not only by the diuretics but also the ongoing loose stools. (2) MEDINA (acute kidney injury) Is this a current diagnosis for this admission?: Yes Plan: Multifactorial causes due to initial hypotension and NSAID use. Currently resolved and at baseline. (3) Chronic kidney disease, stage III (moderate) Is this a current diagnosis for this admission?: Yes (4) Hypoalbuminemia due to protein-calorie malnutrition Is this a current diagnosis for this admission?: Yes Plan: I will start her on albumin infusion every 8 hours and discontinue the Lasix for now. (5) Congestive heart failure Qualifiers: Heart failure type: diastolic Heart failure chronicity: chronic Qualified Code(s): I50.32 - Chronic diastolic (congestive) heart failure Is this a current diagnosis for this admission?: Yes Plan: Compensated. (6) Hypertension Qualifiers: Hypertension type: essential hypertension Qualified Code(s): I10 - Essential (primary) hypertension Is this a current diagnosis for this admission?: Yes Plan: Blood pressure acceptable. - Time Time with patient: 15-25 minutes
[2018-01-09] MEDS: ALBUMIN HUMAN 12.5 GM/50 ML RTUINJ IV SCH (21:21)
[2018-01-09] MEDS: ASPIRIN 81 MG TABLET, ENT COATED PO SCH (21:21)
[2018-01-09] MEDS: MONTELUKAST SODIUM 10 MG TABLET PO SCH (21:22)
[2018-01-09] MEDS: FAMOTIDINE 20 MG TABLET PO SCH (21:22)
[2018-01-09] MEDS: ATORVASTATIN CALCIUM 10 MG TABLET PO SCH (21:22)
[2018-01-09 21:50] LABS: ANION GAP 8 (5-19); BLOOD UREA NITROGEN 19 mg/dL (7-20); CALCIUM 8.3 mg/dL (8.4-10.2); CARBON DIOXIDE 25 mmol/L (22-30); CHLORIDE 108 mmol/L (98-107); GLUCOSE 115 mg/dL (75-110); POTASSIUM 3.3 mmol/L (3.6-5.0); SODIUM 140.7 mmol/L (137-145)
[2018-01-09] MEDS ORDERED: ALTEPLASE INJ 2 MG VIAL (CATH CLEARANCE) INJ PRN (23:27)
[2018-01-09] MEDS: ALTEPLASE INJ 2 MG VIAL (CATH CLEARANCE) IV PRN (23:54)
[2018-01-10] MEDS: ALTEPLASE INJ 2 MG VIAL (CATH CLEARANCE) IV PRN (00:47)
[2018-01-10] MEDS: LANSOPRAZOLE 30 MG TAB.RAP.DR PO SCH (05:28)
[2018-01-10] MEDS: LEVOTHYROXINE SODIUM 0.075 MG TABLET PO SCH (05:28)
[2018-01-10] MEDS: ALBUMIN HUMAN 12.5 GM/50 ML RTUINJ IV SCH (05:28)
[2018-01-10] MEDS: NORMAL SALINE 10 ML SDV (SCHEDULED) IV SCH ×3 (05:28→22:21)
[2018-01-10 06:02] LABS: HEMATOCRIT 25.6 % (36.0-47.0); MEAN CORPUSCULAR HEMOGLOBIN 31.2 pg (27.0-33.4); MEAN CORPUSCULAR HGB CONC 35.1 g/dL (32.0-36.0); MEAN CORPUSCULAR VOLUME 89 fl (80-97); PLATELET COUNT 274 10^3/uL (150-450); RED BLOOD COUNT 2.89 10^6/uL (3.72-5.28); RED CELL DISTRIBUTION WIDTH 14.2 % (11.5-14.0); WHITE BLOOD COUNT 8.9 10^3/uL (4.0-10.5)
[2018-01-10 06:20] LABS: ANION GAP 8 (5-19); BLOOD UREA NITROGEN 16 mg/dL (7-20); CALCIUM 8.1 mg/dL (8.4-10.2); CARBON DIOXIDE 25 mmol/L (22-30); CHLORIDE 109 mmol/L (98-107); GLUCOSE 97 mg/dL (75-110); POTASSIUM 3.3 mmol/L (3.6-5.0); SODIUM 141.7 mmol/L (137-145)
[2018-01-10 06:30] LABS: ABSOLUTE MONOCYTES # (MANUAL) 0.7 10^3/uL (0.1-1.4); ABSOLUTE NEUTROPHILS# (MANUAL) 5.9 10^3/uL (1.7-8.2); BAND NEUTROPHILS % (MANUAL) 4 % (3-5); BASOPHILS % (MANUAL) 0 % (0-2); EOSINOPHILS % (MANUAL) 4 % (0-6); LYMPHOCYTES % (MANUAL) 22 % (13-45); MONOCYTES % (MANUAL) 8 % (3-13); NUCLEATED RED BLOOD CELLS 1 /100 WBC (0); SEGMENTED NEUTROPHILS % (MAN) 62 % (42-78); TOTAL CELLS COUNTED 100
[2018-01-10 06:31] LABS: ANISOCYTOSIS SLIGHT; BURR CELLS 2+; OVALOCYTES SLIGHT; PLATELET COMMENT ADEQUATE; PLATELET LARGE PRESENT; POIKILOCYTOSIS 2+; POLYCHROMASIA SLIGHT; SCHISTOCYTES SLIGHT
--- NOTE | 2018-01-10 07:11 | PDOC TRANSFER SUMMARY ---
General - Admit/Disc Date/PCP Admission Date/Primary Care Provider: 01/01/18 07:52 RANJAN PRICE MD Discharge Date: 01/10/18 - Discharge Diagnosis (1) Hip joint replacement status Is this a current diagnosis for this admission?: Yes - Additional Information Resuscitation Status: Full Code Home Medications: Acetaminophen [Tylenol 325 mg Tablet] 500 mg PO ASDIR PRN 10/04/12 Allopurinol [Zyloprim 100 Mg Tablet] 100 mg PO DAILY 10/04/12 Aspirin [Ecotrin 81 mg EC Tablet] 81 mg PO QHS 10/04/12 Atorvastatin Calcium [Lipitor] 10 mg PO QHS 10/04/12 Calcium Carbonate/Vitamin D3 [Calcium + Vitamin D Tablet] 600 mg PO BID Diazepam [Valium 5 Mg Tablet] 5 mg PO Q12 10/04/12 Ergocalciferol (Vitamin D2) [Drisdol 50,000 unit (1.25MG) Capsule] 50,000 unit PO WE@1000 10/04/12 Estrogens,Conjugated [Premarin 0.3 Mg Tablet] 0.3 mg PO QHS 10/04/12 Furosemide [Lasix 20 mg Tablet] 10 mg PO DAILY 10/04/12 Gabapentin [Neurontin 300 Mg Capsule] 300 mg PO Q12 10/04/12 Levothyroxine Sodium [Synthroid 0.075 mg Tablet] 0.015 mcg PO DAILY 10/04/12 Meclizine HCl [Antivert] 25 mg PO Q6HP PRN 10/04/12 Metoprolol Tartrate [Lopressor 25 Mg Tablet] 25 mg PO Q12 10/04/12 Mineral Oil/Hydrophil Petrolat [Aquaphor Healing Ointment] 50 gm TP ASDIR [place]-3 Fatty Acids/Fish Oil [[place] 3 Fish Oil Softgel] 1 each PO DAILY Psyllium Husk [Metamucil] 0.52 gm PO DAILY 10/04/12 Ranitidine HCl 150 mg PO Q12 10/04/12 Zafirlukast [Accolate 10 mg Tablet] 10 mg PO DAILY 10/04/12 Ibuprofen 800 mg PO DAILY 12/21/17 Multivit-Min/Iron/Folic/Lutein [Centrum Silver Women Tablet] 1 tab PO DAILY Telmisartan [Micardis 80 mg Tablet] 80 mg PO DAILY 12/21/17 History of Present Illness Admission Date/PCP: 01/01/18 07:52 RANJAN PRICE MD History of Present Illness: TIM ORELLANA is a 77 year old female Patient is a 77-year-old white female with progressive right hip pain and functional disability secondary osteoarthritis. Patient is admitted for elective right hip arthroplasty. Hospital Course Hospital Course: Patient is admitted to the operating where she undergoes uncomplicated right hip arthroplasty. She is returned to floor in satisfactory condition. Physical therapy is slow both because the patient's size, deconditioning, and comorbid conditions. The patient experiences some oversedation requiring Narcan administration. She also demonstrates some elevation of renal failure which was treated with a combination of diuretics and fluid. The patient subsequently developed an ileus and has a nasogastric tube placed for short period of time. This resolved spontaneously. Physical Exam Vital Signs: Temp Pulse Resp BP Pulse Ox 36.7 C 102 H 18 160/67 H 99 01/10/18 03:46 01/10/18 03:46 01/10/18 03:46 01/10/18 03:46 01/10/18 03:46 Intake & Output 01/09/18 01/10/18 01/11/18 06:59 06:59 06:59 Intake Total 3173 506 Output Total 600 1050 Balance 2573 -544 Weight 114.2 kg General appearance: PRESENT: no acute distress, obese Head exam: PRESENT: normocephalic Respiratory exam: PRESENT: unlabored Cardiovascular exam: PRESENT: RRR Pulses: PRESENT: +1 pedal pulses bilateral Vascular exam: PRESENT: normal capillary refill GI/Abdominal exam: PRESENT: soft Rectal exam: PRESENT: deferred Extremities exam: PRESENT: other - Right lower extremity dressing is clean dry and intact. Leg lengths are equal. Distal neurovascular examination is intact. Neurological exam: PRESENT: alert, awake, oriented to person, oriented to place , oriented to time, oriented to situation. ABSENT: motor sensory deficit Psychiatric exam: PRESENT: appropriate affect, normal mood. ABSENT: homicidal ideation, suicidal ideation Skin exam: PRESENT: dry, intact, warm. ABSENT: cyanosis, rash Results Laboratory Results: 01/10/18 05:40 01/10/18 05:40 01/09/18 01/09/18 01/09/18 08:21 16:30 16:30 WBC RBC Hgb Hct MCV MCH MCHC RDW Plt Count Seg Neutrophils % Lymphocytes % Monocytes % Eosinophils % Basophils % Absolute Neutrophils Absolute Lymphocytes Absolute Monocytes Absolute Eosinophils Absolute Basophils Sodium 142.0 Potassium 3.0 L* Chloride 113 H Carbon Dioxide 24 Anion Gap 5 BUN 17 Creatinine 0.84 Est GFR ( Amer) > 60 Est GFR (Non-Af Amer) > 60 Glucose 115 H Calcium 7.0 L* Magnesium 1.6 Albumin 1.8 L Stool for White Cells NO WBCs SEEN 01/09/18 01/10/18 01/10/18 21:23 05:40 05:40 WBC 8.9 RBC 2.89 L Hgb 9.0 L Hct 25.6 L MCV 89 MCH 31.2 MCHC 35.1 RDW 14.2 H Plt Count 274 Seg Neutrophils % Not Reportable Lymphocytes % Not Reportable Monocytes % Not Reportable Eosinophils % Not Reportable Basophils % Not Reportable Absolute Neutrophils Not Reportable Absolute Lymphocytes Not Reportable Absolute Monocytes Not Reportable Absolute Eosinophils Not Reportable Absolute Basophils Not Reportable Sodium 140.7 141.7 Potassium 3.3 L 3.3 L Chloride 108 H 109 H Carbon Dioxide 25 25 Anion Gap 8 8 BUN 19 16 Creatinine 0.97 0.89 Est GFR ( Amer) > 60 > 60 Est GFR (Non-Af Amer) 56 L > 60 Glucose 115 H 97 Calcium 8.3 L 8.1 L Magnesium Albumin Stool for White Cells 01/04/18 10:17 Blood Blood Culture - Final NO GROWTH IN 5 DAYS 01/04/18 10:07 Blood Blood Culture - Final NO GROWTH IN 5 DAYS 01/07/18 05:25 NT-Pro-B Natriuret Pep 1080 H Impressions: Pelvis X-Ray 01/01/18 11:22 IMPRESSION: Right hip arthroplasty. Chest X-Ray 01/07/18 00:00 IMPRESSION: STABLE APPEARANCE. NO ACUTE RADIOGRAPHIC FINDING IN THE CHEST. Head CT 01/07/18 00:00 IMPRESSION: NORMAL BRAIN CT WITHOUT CONTRAST. EVIDENCE OF ACUTE STROKE: NO. KUB X-Ray 01/08/18 08:02 IMPRESSION: 1. Marked diffuse dilatation of the colon, particularly from the cecum to the splenic flexure. Correlation suggested. 2. Rectal catheter is identified. 3. Total right hip arthroplasty. Marked severe left hip arthrosis. Status: Imported from PACS Transfer Plan - Disposition Transfer Plan: Patient be transferred to [facility] for ongoing long-term attention to her wound and for physical therapy for weightbearing as tolerated ambulation. - Time Spent with Patient Time spent with patient: Less than 30 Minutes Qualifiers - * PATIENT BEING DISCHARGED WITH ANY OF THE FOLLOWING DIAGNOSIS: No VTE patient discharged on overlapping Therapy?: Yes Plan Discharge Plan: Patient return to see Dr. Muriel Chang [place] for surgery in 2 weeks for staple removal.
[2018-01-10] MEDS ORDERED: LOPERAMIDE HCL 2 MG CAPSULE PO PRN (08:24)
[2018-01-10] MEDS ORDERED: POTASSIUM CHLORIDE 20 MEQ/50 ML RTU IV ONE (08:45)
--- NOTE | 2018-01-10 09:39 | PDOC PROGRESS REPORT ---
Subjective Progress Note for:: 01/10/18 Subjective:: Patient is feeling much better patient's p.o. intake is fair Still have a loose stool 3 times yesterday patient's stool for C. difficile is all negative Patient's denied any abdominal pain no nausea no Patient's discharge by the orthopedic surgery but I think patient still need to see another day and readjust the discharge medications are do not think so patients no need the Valium and patients does not need any hormones As per discussed with the nephrology and suggest the replace the potassium and hopefully if he remains stable discharge tomorrow without Lasix and is rehab following a couple of days to readjust the Lasix and potassium Reason For Visit: RIGHT HIP ARTHRITIS Physical Exam Vital Signs: Temp Pulse Resp BP Pulse Ox 98.0 F 91 18 160/67 H 99 01/10/18 03:46 01/10/18 07:00 01/10/18 03:46 01/10/18 03:46 01/10/18 03:46 Intake & Output 01/09/18 01/10/18 01/11/18 06:59 06:59 06:59 Intake Total 3173 506 Output Total 600 1050 Balance 2573 -544 Weight 114.2 kg General appearance: PRESENT: no acute distress, well-developed, well-nourished Head exam: PRESENT: atraumatic, normocephalic Eye exam: PRESENT: conjunctiva pink, EOMI, PERRLA. ABSENT: scleral icterus Ear exam: PRESENT: normal external ear exam Mouth exam: PRESENT: moist, tongue midline Neck exam: PRESENT: full ROM. ABSENT: carotid bruit, JVD, lymphadenopathy, thyromegaly Respiratory exam: PRESENT: clear to auscultation scooby Cardiovascular exam: PRESENT: RRR. ABSENT: diastolic murmur, rubs, systolic murmur Pulses: PRESENT: normal dorsalis pedis pul, +2 pedal pulses bilateral Vascular exam: PRESENT: normal capillary refill GI/Abdominal exam: PRESENT: normal bowel sounds, soft. ABSENT: distended, guarding, mass, organolmegaly, rebound, tenderness Rectal exam: PRESENT: deferred Extremities exam: ABSENT: pedal edema Musculoskeletal exam: PRESENT: ambulatory Neurological exam: PRESENT: alert, awake, oriented to person, oriented to place , oriented to time, oriented to situation, CN II-XII grossly intact. ABSENT: motor sensory deficit Psychiatric exam: PRESENT: appropriate affect, normal mood. ABSENT: homicidal ideation, suicidal ideation Skin exam: PRESENT: dry, intact, warm. ABSENT: cyanosis, rash Results Laboratory Results: 01/10/18 05:40 01/10/18 05:40 01/09/18 01/09/18 01/09/18 08:21 16:30 16:30 WBC RBC Hgb Hct MCV MCH MCHC RDW Plt Count Seg Neutrophils % Lymphocytes % Monocytes % Eosinophils % Basophils % Absolute Neutrophils Absolute Lymphocytes Absolute Monocytes Absolute Eosinophils Absolute Basophils Sodium 142.0 Potassium 3.0 L* Chloride 113 H Carbon Dioxide 24 Anion Gap 5 BUN 17 Creatinine 0.84 Est GFR ( Amer) > 60 Est GFR (Non-Af Amer) > 60 Glucose 115 H Calcium 7.0 L* Magnesium 1.6 Albumin 1.8 L Stool for White Cells NO WBCs SEEN 01/09/18 01/10/18 01/10/18 21:23 05:40 05:40 WBC 8.9 RBC 2.89 L Hgb 9.0 L Hct 25.6 L MCV 89 MCH 31.2 MCHC 35.1 RDW 14.2 H Plt Count 274 Seg Neutrophils % Not Reportable Lymphocytes % Not Reportable Monocytes % Not Reportable Eosinophils % Not Reportable Basophils % Not Reportable Absolute Neutrophils Not Reportable Absolute Lymphocytes Not Reportable Absolute Monocytes Not Reportable Absolute Eosinophils Not Reportable Absolute Basophils Not Reportable Sodium 140.7 141.7 Potassium 3.3 L 3.3 L Chloride 108 H 109 H Carbon Dioxide 25 25 Anion Gap 8 8 BUN 19 16 Creatinine 0.97 0.89 Est GFR ( Amer) > 60 > 60 Est GFR (Non-Af Amer) 56 L > 60 Glucose 115 H 97 Calcium 8.3 L 8.1 L Magnesium Albumin Stool for White Cells 01/04/18 10:17 Blood Blood Culture - Final NO GROWTH IN 5 DAYS 01/04/18 10:07 Blood Blood Culture - Final NO GROWTH IN 5 DAYS 01/07/18 05:25 NT-Pro-B Natriuret Pep 1080 H Impressions: Pelvis X-Ray 01/01/18 11:22 IMPRESSION: Right hip arthroplasty. Chest X-Ray 01/07/18 00:00 IMPRESSION: STABLE APPEARANCE. NO ACUTE RADIOGRAPHIC FINDING IN THE CHEST. Head CT 01/07/18 00:00 IMPRESSION: NORMAL BRAIN CT WITHOUT CONTRAST. EVIDENCE OF ACUTE STROKE: NO. KUB X-Ray 01/08/18 08:02 IMPRESSION: 1. Marked diffuse dilatation of the colon, particularly from the cecum to the splenic flexure. Correlation suggested. 2. Rectal catheter is identified. 3. Total right hip arthroplasty. Marked severe left hip arthrosis. Assessment & Plan - Diagnosis (1) Hip joint replacement status Qualifiers: Laterality: right Qualified Code(s): Z96.641 - Presence of right artificial hip joint Is this a current diagnosis for this admission?: Yes Plan: Continues to follow with the orthopedic surgery (2) Hypertension Qualifiers: Hypertension type: essential hypertension Qualified Code(s): I10 - Essential (primary) hypertension Is this a current diagnosis for this admission?: Yes Plan: Patient is currently hold all blood pressure medications (3) Chronic kidney disease Qualifiers: Chronic kidney disease stage: stage 3 (moderate) Qualified Code(s): N18.3 - Chronic kidney disease, stage 3 (moderate) Is this a current diagnosis for this admission?: Yes Plan: All improving replaced IV potassium (4) Congestive heart failure Qualifiers: Heart failure type: diastolic Heart failure chronicity: chronic Qualified Code(s): I50.32 - Chronic diastolic (congestive) heart failure Is this a current diagnosis for this admission?: Yes Plan: Continues to p.o. Lasix (5) Hyperlipidemia Qualifiers: Hyperlipidemia type: unspecified Qualified Code(s): E78.5 - Hyperlipidemia , unspecified Is this a current diagnosis for this admission?: Yes (6) Arthritis Is this a current diagnosis for this admission?: Yes (7) Coronary arteriosclerosis Is this a current diagnosis for this admission?: Yes Plan: Repeat the EKG today (8) Impaired fasting glucose Is this a current diagnosis for this admission?: Yes Plan: check bs (9) Fever Qualifiers: Fever type: unspecified Qualified Code(s): R50.9 - Fever, unspecified Is this a current diagnosis for this admission?: Yes Plan: Currently all resolved (10) Ileus Is this a current diagnosis for this admission?: Yes Plan: Currently all resolved (11) Encephalopathy Is this a current diagnosis for this admission?: Yes Plan: Likely a metabolic currently all resolving - Time Time Spent with patient: 15-24 minutes Medications reviewed and adjusted accordingly: Yes Anticipated discharge: SNF Within: within 24 hours - Inpatient Certification Based on my medical assessment, after consideration of the patient's comorbidities, presenting symptoms, or acuity I expect that the services needed warrant INPATIENT care.: Yes I certify that my determination is in accordance with my understanding of Medicare's requirements for reasonable and necessary INPATIENT services [42 CFR 412.3e].: Yes Medical Necessity: Need Close Monitoring Due to Risk of Patient Decompensation 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
[2018-01-10] MEDS: NYSTATIN/DEXAMETH/DIPHEN SUSP 120 ML PO SCH ×3 (10:15→17:46)
[2018-01-10] MEDS: ENOXAPARIN SODIUM INJ 40 MG/0.4 ML DISP.SYRIN SUBCUT SCH (10:15)
[2018-01-10] MEDS: LACTOBACILLUS ACIDOPHILUS 250 MG TAB PO SCH ×2 (10:15→17:53)
[2018-01-10] MEDS: POTASSIUM CHLORIDE 10 MEQ CAPSULE.ER PO SCH ×2 (10:15→22:21)
[2018-01-10] MEDS: MULTIVITAMIN TABLET PO SCH (10:15)
[2018-01-10] MEDS: ALLOPURINOL 100 MG TABLET PO SCH (10:16)
[2018-01-10] MEDS: POTASSIUM CHLORIDE 20 MEQ/50 ML RTU IV SCH ×2 (10:16→12:32)
[2018-01-10 17:01] LABS: ANION GAP 5 (5-19); BLOOD UREA NITROGEN 15 mg/dL (7-20); CALCIUM 8.1 mg/dL (8.4-10.2); CARBON DIOXIDE 25 mmol/L (22-30); CHLORIDE 111 mmol/L (98-107); GLUCOSE 101 mg/dL (75-110); POTASSIUM 3.8 mmol/L (3.6-5.0); SODIUM 141.4 mmol/L (137-145)
--- NOTE | 2018-01-10 17:40 | PDOC PROGRESS REPORT ---
Subjective Progress Note for:: 01/10/18 Subjective:: Patient is doing well and does not have any new complaints. She is doing physical therapy and is able to walk about 50 feet. She tells me she is making good amount of urine. She denies any shortness of breath. Reason For Visit: RIGHT HIP ARTHRITIS Physical Exam Vital Signs: Temp Pulse Resp BP Pulse Ox 98.2 F 84 20 127/59 H 97 01/10/18 15:38 01/10/18 15:38 01/10/18 15:38 01/10/18 15:38 01/10/18 15:38 Intake & Output 01/09/18 01/10/18 01/11/18 06:59 06:59 06:59 Intake Total 3173 506 170 Output Total 600 1050 Balance 2573 -544 170 Weight 114.2 kg Exam: General appearance: PRESENT: no acute distress, cooperative, well-developed, well-nourished Head exam: PRESENT: atraumatic, normocephalic Eye exam: PRESENT: conjunctiva slightly pale, PERRLA. ABSENT: scleral icterus Neck exam: ABSENT: JVD Respiratory exam: PRESENT: Diminished breath sounds. ABSENT: crackles, rales, rhonchi, unlabored, wheezes Cardiovascular exam: PRESENT: Regular rate rhythm -+S1, +S2. ABSENT: diastolic murmur, systolic murmur GI/Abdominal exam: PRESENT: normal bowel sounds, soft. ABSENT: guarding, mass, tenderness Extremities exam: Grade 1 bilateral lower extremity pitting edema, right leg greater than the left Neurological exam: PRESENT: alert, awake, oriented to person, place and time. Skin exam: PRESENT: dry, warm, Cardiovascular exam: PRESENT: +S1, +S2, systolic murmur GI/Abdominal exam: PRESENT: distended - Mild. She feels gaseous., normal bowel sounds, soft. ABSENT: rebound, tenderness Results Laboratory Results: 01/10/18 05:40 01/10/18 16:20 01/09/18 01/09/18 01/10/18 16:30 21:23 05:40 WBC 8.9 RBC 2.89 L Hgb 9.0 L Hct 25.6 L MCV 89 MCH 31.2 MCHC 35.1 RDW 14.2 H Plt Count 274 Seg Neutrophils % Not Reportable Lymphocytes % Not Reportable Monocytes % Not Reportable Eosinophils % Not Reportable Basophils % Not Reportable Absolute Neutrophils Not Reportable Absolute Lymphocytes Not Reportable Absolute Monocytes Not Reportable Absolute Eosinophils Not Reportable Absolute Basophils Not Reportable Sodium 140.7 Potassium 3.3 L Chloride 108 H Carbon Dioxide 25 Anion Gap 8 BUN 19 Creatinine 0.97 Est GFR ( Amer) > 60 Est GFR (Non-Af Amer) 56 L Glucose 115 H Calcium 8.3 L Magnesium 1.6 Albumin 1.8 L 01/10/18 01/10/18 05:40 16:20 WBC RBC Hgb Hct MCV MCH MCHC RDW Plt Count Seg Neutrophils % Lymphocytes % Monocytes % Eosinophils % Basophils % Absolute Neutrophils Absolute Lymphocytes Absolute Monocytes Absolute Eosinophils Absolute Basophils Sodium 141.7 141.4 Potassium 3.3 L 3.8 Chloride 109 H 111 H Carbon Dioxide 25 25 Anion Gap 8 5 BUN 16 15 Creatinine 0.89 0.86 Est GFR ( Amer) > 60 > 60 Est GFR (Non-Af Amer) > 60 > 60 Glucose 97 101 Calcium 8.1 L 8.1 L Magnesium Albumin 01/07/18 05:25 NT-Pro-B Natriuret Pep 1080 H Impressions: Pelvis X-Ray 01/01/18 11:22 IMPRESSION: Right hip arthroplasty. Chest X-Ray 01/07/18 00:00 IMPRESSION: STABLE APPEARANCE. NO ACUTE RADIOGRAPHIC FINDING IN THE CHEST. Head CT 01/07/18 00:00 IMPRESSION: NORMAL BRAIN CT WITHOUT CONTRAST. EVIDENCE OF ACUTE STROKE: NO. KUB X-Ray 01/08/18 08:02 IMPRESSION: 1. Marked diffuse dilatation of the colon, particularly from the cecum to the splenic flexure. Correlation suggested. 2. Rectal catheter is identified. 3. Total right hip arthroplasty. Marked severe left hip arthrosis. Assessment & Plan - Diagnosis (1) Hypokalemia Is this a current diagnosis for this admission?: Yes Plan: Much improved today after another potassium rider and discontinuation of the Lasix. This is obviously diuretic induced. The patient may not need to go home with oral potassium as long as she is not going to go home with oral Lasix. (2) MEDINA (acute kidney injury) Is this a current diagnosis for this admission?: Yes Plan: Multifactorial causes due to initial hypotension and NSAID use. Currently resolved and at baseline. (3) Chronic kidney disease, stage III (moderate) Is this a current diagnosis for this admission?: Yes (4) Hypoalbuminemia due to protein-calorie malnutrition Is this a current diagnosis for this admission?: Yes Plan: I will start her on albumin infusion every 8 hours and discontinue the Lasix for now. Advised patient to eat more protein sources to build up her nutrition. She claims that she is eating better. (5) Congestive heart failure Qualifiers: Heart failure type: diastolic Heart failure chronicity: chronic Qualified Code(s): I50.32 - Chronic diastolic (congestive) heart failure Is this a current diagnosis for this admission?: Yes Plan: Compensated. For need for any diuretics I think she needs to be re-evaluated once discharged. (6) Hypertension Qualifiers: Hypertension type: essential hypertension Qualified Code(s): I10 - Essential (primary) hypertension Is this a current diagnosis for this admission?: Yes Plan: Blood pressure acceptable. - Notes Notes: Discussed plan with Dr. Castro this morning. I think patient can be safely discharged home tomorrow. - Time Time with patient: 15-25 minutes
[2018-01-10] MEDS: ALBUMIN HUMAN 25 GM/100 ML RTUINJ IV SCH (17:58)
[2018-01-10] MEDS: MONTELUKAST SODIUM 10 MG TABLET PO SCH (22:21)
[2018-01-10] MEDS: ATORVASTATIN CALCIUM 10 MG TABLET PO SCH (22:21)
[2018-01-10] MEDS: ASPIRIN 81 MG TABLET, ENT COATED PO SCH (22:21)
[2018-01-10] MEDS: FAMOTIDINE 20 MG TABLET PO SCH (22:21)
[2018-01-11] MEDS: ALBUMIN HUMAN 25 GM/100 ML RTUINJ IV SCH ×2 (02:05→09:43)
[2018-01-11] MEDS: LEVOTHYROXINE SODIUM 0.075 MG TABLET PO SCH (05:35)
[2018-01-11] MEDS: NORMAL SALINE 10 ML SDV (SCHEDULED) IV SCH ×2 (05:35→13:15)
[2018-01-11] MEDS: LANSOPRAZOLE 30 MG TAB.RAP.DR PO SCH (05:35)
[2018-01-11 06:07] LABS: ANION GAP 9 (5-19); BLOOD UREA NITROGEN 12 mg/dL (7-20); CALCIUM 8.3 mg/dL (8.4-10.2); CARBON DIOXIDE 24 mmol/L (22-30); CHLORIDE 109 mmol/L (98-107); GLUCOSE 90 mg/dL (75-110); POTASSIUM 3.7 mmol/L (3.6-5.0); SODIUM 141.7 mmol/L (137-145)
--- NOTE | 2018-01-11 08:28 | PDOC TRANSFER SUMMARY ---
General - Admit/Disc Date/PCP Admission Date/Primary Care Provider: 01/01/18 07:52 RANJAN PRICE MD Discharge Date: 01/11/18 - Discharge Diagnosis (1) Hip joint replacement status Is this a current diagnosis for this admission?: Yes Summary: Follow with the Dr. Llamas as scheduled (2) Hypertension Is this a current diagnosis for this admission?: Yes Summary: Continues to beta-parmjit currently hold the Micardis if the patient's blood pressure slowly go up restart the Micardis (3) Chronic kidney disease Is this a current diagnosis for this admission?: Yes Summary: Currently all stable follow outpatients Dr. Souza recheck the Chem-7 in 3 days (4) Congestive heart failure Is this a current diagnosis for this admission?: Yes Summary: Since seen by Dr. Watson currently doing well (5) Hyperlipidemia Is this a current diagnosis for this admission?: Yes Summary: Continues to statin (6) Arthritis Is this a current diagnosis for this admission?: Yes Summary: Continues to as needed Acetaminophen (7) Coronary arteriosclerosis Is this a current diagnosis for this admission?: Yes Summary: Currently all stable (8) Impaired fasting glucose Is this a current diagnosis for this admission?: Yes Summary: Low-carb diet (9) Fever Is this a current diagnosis for this admission?: Yes Summary: All resolved (10) Ileus Is this a current diagnosis for this admission?: Yes Summary: All resolved (11) Encephalopathy Is this a current diagnosis for this admission?: Yes Summary: All resolved (12) Hypothyroidism Is this a current diagnosis for this admission?: Yes Summary: Continues to levothyroxine's TSH is all normal (13) Hypokalemia Is this a current diagnosis for this admission?: Yes Summary: Currently all resolved - Additional Information Resuscitation Status: Full Code Discharge Diet: Cardiac, Diabetic Discharge Activity: Activity As Tolerated Prescriptions: Acetaminophen [Tylenol 325 mg Tablet] 650 mg PO Q6HP PRN #120 tablet PRN Reason: Lactobacillus Acidophilus [Bacid 250 mg Tablet] 250 mg PO BID #60 tab Levalbuterol HCl [Xopenex Neb 1.25 mg/3 ml Ampul] 1.25 mg NEB RTQ6HP PRN #100 vial.neb PRN Reason: Home Medications: Acetaminophen [Tylenol 325 mg Tablet] 500 mg PO ASDIR PRN 10/04/12 Allopurinol [Zyloprim 100 mg Tablet] 100 mg PO DAILY 10/04/12 Aspirin [Ecotrin 81 mg EC Tablet] 81 mg PO QHS 10/04/12 Atorvastatin Calcium [Lipitor] 10 mg PO QHS 10/04/12 Calcium Carbonate/Vitamin D3 [Calcium 600-Vit D3 200 Tablet] 600 mg PO BID 10/04 Ergocalciferol (Vitamin D2) [Drisdol 50,000 unit (1.25MG) Capsule] 50,000 unit PO WE@1000 10/04/12 Levothyroxine Sodium [Synthroid 0.075 mg Tablet] 0.015 mcg PO DAILY 10/04/12 Meclizine HCl [Antivert] 25 mg PO Q6HP PRN 10/04/12 Metoprolol Tartrate [Lopressor 25 mg Tablet] 25 mg PO Q12 10/04/12 Mineral Oil/Hydrophil Petrolat [Aquaphor Healing Ointment] 50 gm TP ASDIR Startex-3 Fatty Acids/Fish Oil [Startex 3 Fish Oil Softgel] 1 each PO DAILY Psyllium Husk [Metamucil] 0.52 gm PO DAILY 10/04/12 Ranitidine HCl 150 mg PO Q12 10/04/12 Zafirlukast [Accolate 10 mg Tablet] 10 mg PO DAILY 10/04/12 Multivit-Min/Iron/Folic/Lutein [Centrum Silver Women Tablet] 1 tab PO DAILY Acetaminophen [Tylenol 325 mg Tablet] 650 mg PO Q6HP PRN #120 tablet 01/10/18 Lactobacillus Acidophilus [Bacid 250 mg Tablet] 250 mg PO BID #60 tab 01/10/18 Levalbuterol HCl [Xopenex Neb 1.25 mg/3 ml Ampul] 1.25 mg NEB RTQ6HP PRN #100 vial.neb 01/11/18 History of Present Illness Admission Date/PCP: 01/01/18 07:52 RANJAN PRICE MD History of Present Illness: TIM ORELLANA is a 77 year old female pt under went for rt hip replace ment pt is doing well pt walk with pt today no chest pain no sob ptalso see dr queen and dr souza as out pt for cad/ckd Hospital Course Hospital Course: This is a 69-year-old female's with significant medical problems as above came for the scheduled right hip replacement therapy by Dr. Llamas patient after surgery developed acute renal failure on chronic kidney disease also patients develop the postop fever due to the atelectasis and also developed postop ileus and postop hypokalemia Patient was started on IV antibiotic and IV fluid and the nephrology was consulted Patient also seen by the cardiology Dr. Watson due to the underlying coronary disease mild congestive heart failure Patient also seen by general surgery for the postop ileus Patient's also developed delirium and encephalopathy due to the pain medication and also develop because of postop anesthesia's Patient is otherwise doing well patients pretty much all complications resolved patient is currently off the pain medications off the Valium and off the hormone therapy Patient's at this point's walk with the physical therapy currently doing well Patient also have a hypokalemia was all resolved and according to the primer charging tool setter no need for Lasix right now and no need for potassiums Patient's otherwise walk with the physical therapy fully alert awake and oriented patient's p.o. intake is good patients have a good bowel movement in patients at this point very eager to go to the rehab facility because of ongoing weakness Albumin is low was replaced by the nephrology Encourage the patient's to increase the beta protein in the diet as the dietary consult in the rehab facilities Recheck the Chem-7 and CBC in 3 days Follow outpatient nephrology Dr. Souza and outpatients cardiology Dr. Watson and follow with the orthopedic surgery as scheduled Physical Exam Vital Signs: Temp Pulse Resp BP Pulse Ox 99.3 F 82 17 149/52 H 97 01/11/18 03:42 01/11/18 07:00 01/10/18 23:41 01/11/18 03:42 01/11/18 03:42 Intake & Output 01/10/18 01/11/18 01/12/18 06:59 06:59 06:59 Intake Total 506 1207 Output Total 1050 900 Balance -544 307 Weight 114.2 kg 114.5 kg General appearance: PRESENT: no acute distress, well-developed, well-nourished Head exam: PRESENT: atraumatic, normocephalic Eye exam: PRESENT: conjunctiva pink, EOMI, PERRLA. ABSENT: scleral icterus Ear exam: PRESENT: normal external ear exam Mouth exam: PRESENT: moist, tongue midline Neck exam: ABSENT: carotid bruit, JVD, lymphadenopathy, thyromegaly Respiratory exam: PRESENT: clear to auscultation scooby. ABSENT: rales, rhonchi, wheezes Cardiovascular exam: PRESENT: RRR. ABSENT: diastolic murmur, rubs, systolic murmur Pulses: PRESENT: normal dorsalis pedis pul Vascular exam: PRESENT: normal capillary refill GI/Abdominal exam: PRESENT: normal bowel sounds, soft. ABSENT: distended, guarding, mass, organolmegaly, rebound, tenderness Rectal exam: PRESENT: deferred Extremities exam: PRESENT: full ROM. ABSENT: calf tenderness, clubbing, pedal edema Neurological exam: PRESENT: alert, awake, oriented to person, oriented to place , oriented to time, oriented to situation, CN II-XII grossly intact. ABSENT: motor sensory deficit Psychiatric exam: PRESENT: appropriate affect, normal mood. ABSENT: homicidal ideation, suicidal ideation Skin exam: PRESENT: dry, intact, warm. ABSENT: cyanosis, rash Results Laboratory Results: 01/10/18 05:40 01/11/18 05:40 01/10/18 01/11/18 16:20 05:40 Sodium 141.4 141.7 Potassium 3.8 3.7 Chloride 111 H 109 H Carbon Dioxide 25 24 Anion Gap 5 9 BUN 15 12 Creatinine 0.86 0.81 Est GFR ( Amer) > 60 > 60 Est GFR (Non-Af Amer) > 60 > 60 Glucose 101 90 Calcium 8.1 L 8.3 L 01/07/18 05:25 NT-Pro-B Natriuret Pep 1080 H Impressions: Pelvis X-Ray 01/01/18 11:22 IMPRESSION: Right hip arthroplasty. Chest X-Ray 01/07/18 00:00 IMPRESSION: STABLE APPEARANCE. NO ACUTE RADIOGRAPHIC FINDING IN THE CHEST. Head CT 01/07/18 00:00 IMPRESSION: NORMAL BRAIN CT WITHOUT CONTRAST. EVIDENCE OF ACUTE STROKE: NO. KUB X-Ray 01/08/18 08:02 IMPRESSION: 1. Marked diffuse dilatation of the colon, particularly from the cecum to the splenic flexure. Correlation suggested. 2. Rectal catheter is identified. 3. Total right hip arthroplasty. Marked severe left hip arthrosis. Transfer Plan - Time Spent with Patient Time spent with patient: Greater than 30 Minutes Qualifiers - * PATIENT BEING DISCHARGED WITH ANY OF THE FOLLOWING DIAGNOSIS: No VTE patient discharged on overlapping Therapy?: Yes Plan Time Spent: Greater than 30 Minutes - Discharge to the rehab facilities Check a Chem-7 in 3 days Fall precautions
[2018-01-11] MEDS: ALLOPURINOL 100 MG TABLET PO SCH (09:41)
[2018-01-11] MEDS: LACTOBACILLUS ACIDOPHILUS 250 MG TAB PO SCH (09:41)
[2018-01-11] MEDS: POTASSIUM CHLORIDE 10 MEQ CAPSULE.ER PO SCH (09:41)
[2018-01-11] MEDS: MULTIVITAMIN TABLET PO SCH (09:42)
[2018-01-11] MEDS: ENOXAPARIN SODIUM INJ 40 MG/0.4 ML DISP.SYRIN SUBCUT SCH (09:42)
[2018-01-11] MEDS: NYSTATIN/DEXAMETH/DIPHEN SUSP 120 ML PO SCH ×3 (09:44→13:15)
[2018-01-11 13:07] VITALS: BP 152/55
== END 2018-01-11 13:48 | DRG 470 ==
LOC: INOR 07:52 → 4S 14:29
PROVIDERS: ADMIT Orthopaedic Surgery; ATTEND Orthopaedic Surgery
PROC: 0SR90JA Replacement of Right Hip Joint with Synthetic Substitute, Uncemented, Open Approach (ICD-10-PCS; principal; 2018-01-01 10:00)
PROC: 02HV33Z Insertion of Infusion Device into Superior Vena Cava, Percutaneous Approach (ICD-10-PCS; 2018-01-05)
PROC: B548ZZA Ultrasonography of Superior Vena Cava, Guidance (ICD-10-PCS; 2018-01-05)
DX: M16.11 Unilateral primary osteoarthritis, right hip (principal); G93.40 Encephalopathy, unspecified; I13.0 Hypertensive heart and chronic kidney disease with heart failure and stage 1 through stage 4 chronic kidney disease, or unspecified chronic kidney disease; N17.9 Acute kidney failure, unspecified; I50.32 Chronic diastolic (congestive) heart failure; K56.7 Ileus, unspecified; N18.3 Chronic kidney disease, stage 3 (moderate); E87.6 Hypokalemia; I25.10 Atherosclerotic heart disease of native coronary artery without angina pectoris; M19.90 Unspecified osteoarthritis, unspecified site; M10.9 Gout, unspecified; E78.5 Hyperlipidemia, unspecified; E03.9 Hypothyroidism, unspecified; K21.9 Gastro-esophageal reflux disease without esophagitis; F41.9 Anxiety disorder, unspecified; Z79.899 Other long term (current) drug therapy; Z79.82 Long term (current) use of aspirin; Z91.041 Radiographic dye allergy status; Z91.018 Allergy to other foods; Z88.1 Allergy status to other antibiotic agents; J45.909 Unspecified asthma, uncomplicated; Z87.891 Personal history of nicotine dependence; Z90.49 Acquired absence of other specified parts of digestive tract; Z90.710 Acquired absence of both cervix and uterus
CPT/HCPCS: 01214; 36415; 36600; 70450; 71045; 72170; 74018; 80048; 80076; 81001; 82040; 82140; 82803; 83735; 83880; 84100; 84132; 84439; 84443; 84481; 85025; 85027; 86850; 86870; 86900; 86901; 87040; 87045; 87086; 87205; 87493; 88304; 88311; 89055; 93005; 93010; 94640; 94799; C1751; C1776; G8978-GP; G8979-GP; G8987-GO; G8988-GO; J0171; J0690; J0692; J1650; J1741; J1940; J2250; J2310; J2405; J2704; J2997; J3010; J3370; J3480; J3490; J7030; J7040; J7050; J7060; P9047

== ENCOUNTER → 2018-02-14 | Outpatient (CLI) | payer MEDICARE, OTHER ==
[2018-02-14 15:55] LABS: HEMATOCRIT 34.8 % (36.0-47.0); HEMOGLOBIN 11.2 g/dL (12.0-15.5); MEAN CORPUSCULAR HEMOGLOBIN 28.4 pg (27.0-33.4); MEAN CORPUSCULAR HGB CONC 32.3 g/dL (32.0-36.0); MEAN CORPUSCULAR VOLUME 88 fl (80-97); PLATELET COUNT 358 10^3/uL (150-450); RED BLOOD COUNT 3.95 10^6/uL (3.72-5.28); RED CELL DISTRIBUTION WIDTH 15.1 % (11.5-14.0); WHITE BLOOD COUNT 7.4 10^3/uL (4.0-10.5)
[2018-02-14 16:05] LABS: AMORPHOUS SEDIMENT,URINE TRACE /HPF; APPEARANCE,URINE TURBID; BILIRUBIN,URINE NEGATIVE (NEGATIVE); COLOR,URINE YELLOW; GLUCOSE, URINE NEGATIVE (NEGATIVE); KETONES,URINE NEGATIVE (NEGATIVE); LEUKOCYTE ESTERASE,URINE LARGE (NEGATIVE); NITRITE,URINE NEGATIVE (NEGATIVE); PROTEIN,URINE NEGATIVE (NEGATIVE); URINE SPECIFIC GRAVITY 1.013; UROBILINOGEN,URINE NEGATIVE mg/dL (<2.0)
[2018-02-14 16:16] LABS: UR PRO/CREAT RATIO RESULT 0.3 mg/mg (0.0-0.2); URINE CREATININE 95.3 mg/dL (15-278); URINE PROTEIN 29.5 mg/dL (<12)
[2018-02-14 16:18] LABS: ANION GAP 5 (5-19); BLOOD UREA NITROGEN 15 mg/dL (7-20); CALCIUM 10.4 mg/dL (8.4-10.2); CARBON DIOXIDE 37 mmol/L (22-30); CHLORIDE 102 mmol/L (98-107); GLUCOSE 105 mg/dL (75-110); POTASSIUM 3.6 mmol/L (3.6-5.0); SODIUM 144.4 mmol/L (137-145)
== END ==
LOC: OD 14:28
PROVIDERS: ATTEND Internal Medicine Nephrology
DX: I12.9 Hypertensive chronic kidney disease with stage 1 through stage 4 chronic kidney disease, or unspecified chronic kidney disease (principal); N18.3 Chronic kidney disease, stage 3 (moderate); R80.9 Proteinuria, unspecified; D64.9 Anemia, unspecified
CPT/HCPCS: 36415; 80048; 81001; 82570; 84156; 85027

== ENCOUNTER → 2018-03-01 | Outpatient (CLI) | payer MEDICARE, OTHER ==
--- NOTE | 2018-03-01 13:02 | RADIOLOGY REPORT (SQ) ---
EXAM DESCRIPTION: CHEST PA/LATERAL COMPLETED DATE/TIME: 03/01/2018 12:44 pm REASON FOR STUDY: COUGH COMPARISON: 01/07/2018 EXAM PARAMETERS: NUMBER OF VIEWS: two views TECHNIQUE: Digital Frontal and Lateral radiographic views of the chest acquired. RADIATION DOSE: NA LIMITATIONS: none FINDINGS: LUNGS AND PLEURA: No opacities, masses or pneumothorax. No pleural effusion. MEDIASTINUM AND HILAR STRUCTURES: No masses or contour abnormalities. HEART AND VASCULAR STRUCTURES: Heart normal size. No evidence for failure. BONES: No acute findings. HARDWARE: None in the chest. OTHER: No other significant finding. IMPRESSION: NO SIGNIFICANT RADIOGRAPHIC FINDING IN THE CHEST. TECHNICAL DOCUMENTATION: JOB ID: [id number] [employer]- All Rights Reserved Reading location - IP/workstation name: [email or web address]
== END ==
LOC: OD 12:28
PROVIDERS: ATTEND Family Medicine
DX: R05 Cough (principal)
CPT/HCPCS: 71046

== ENCOUNTER → 2018-08-15 | Outpatient (CLI) | payer MEDICARE, OTHER ==
[2018-08-15 09:34] LABS: ABSOLUTE BASOPHILS # (AUTO) 0.1 10^3/uL (0.0-0.2); ABSOLUTE EOSINOPHILS # (AUTO) 0.3 10^3/uL (0.0-0.6); ABSOLUTE LYMPHOCYTES (AUTO) 1.6 10^3/uL (0.5-4.7); ABSOLUTE MONOCYTES (AUTO) 0.4 10^3/uL (0.1-1.4); ABSOLUTE NEUT (AUTO) 3.3 10^3/uL (1.7-8.2); BASOPHILS % (AUTO) 1.8 % (0-2); EOSINOPHILS % (AUTO) 4.4 % (0-6); HEMATOCRIT 39.2 % (36.0-47.0); LYMPHOCYTES % (AUTO) 28.8 % (13-45); MEAN CORPUSCULAR HEMOGLOBIN 29.8 pg (27.0-33.4); MEAN CORPUSCULAR HGB CONC 33.2 g/dL (32.0-36.0); MEAN CORPUSCULAR VOLUME 90 fl (80-97); PLATELET COUNT 214 10^3/uL (150-450); RED BLOOD COUNT 4.36 10^6/uL (3.72-5.28); RED CELL DISTRIBUTION WIDTH 14.2 % (11.5-14.0); TOTAL CELLS COUNTED % (AUTO) 100 %; WHITE BLOOD COUNT 5.7 10^3/uL (4.0-10.5)
[2018-08-15 09:42] LABS: APPEARANCE,URINE SLIGHTLY-CLOUDY; BILIRUBIN,URINE NEGATIVE (NEGATIVE); COLOR,URINE YELLOW; GLUCOSE, URINE NEGATIVE (NEGATIVE); KETONES,URINE NEGATIVE (NEGATIVE); LEUKOCYTE ESTERASE,URINE LARGE (NEGATIVE); NITRITE,URINE NEGATIVE (NEGATIVE); PROTEIN,URINE NEGATIVE (NEGATIVE); URINE SPECIFIC GRAVITY 1.018; UROBILINOGEN,URINE NEGATIVE mg/dL (<2.0)
[2018-08-15 09:55] LABS: ALANINE AMINOTRANSFERASE 20 U/L (9-52); ALBUMIN 4.1 g/dL (3.5-5.0); ALKALINE PHOSPHATASE 85 U/L (38-126); ANION GAP 7 (5-19); ASPARTATE AMINO TRANSFERASE 21 U/L (14-36); BILIRUBIN,DIRECT 0.1 mg/dL (0.0-0.4); BILIRUBIN,TOTAL 0.7 mg/dL (0.2-1.3); BLOOD UREA NITROGEN 25 mg/dL (7-20); CARBON DIOXIDE 31 mmol/L (22-30); CHLORIDE 105 mmol/L (98-107); GLUCOSE 93 mg/dL (75-110); POTASSIUM 4.8 mmol/L (3.6-5.0); SODIUM 142.6 mmol/L (137-145); TOTAL PROTEIN 6.4 g/dL (6.3-8.2)
== END ==
LOC: OD 08:56
PROVIDERS: ATTEND Internal Medicine Nephrology
DX: I12.9 Hypertensive chronic kidney disease with stage 1 through stage 4 chronic kidney disease, or unspecified chronic kidney disease (principal); N18.3 Chronic kidney disease, stage 3 (moderate); R80.9 Proteinuria, unspecified; D64.9 Anemia, unspecified
CPT/HCPCS: 36415; 80053; 81001; 83735; 85025

== ENCOUNTER → 2018-09-12 | Outpatient (CLI) | payer MEDICARE, OTHER ==
--- NOTE | 2018-09-12 15:21 | RADIOLOGY REPORT (SQ) ---
EXAM DESCRIPTION: CHEST PA/LATERAL COMPLETED DATE/TIME: 09/12/2018 3:12 pm REASON FOR STUDY: ENCOUNTER FOR PREPROCEDURAL RESPIRATORY EXAMINATION COMPARISON: 03/01/2018 EXAM PARAMETERS: NUMBER OF VIEWS: two views TECHNIQUE: Digital Frontal and Lateral radiographic views of the chest acquired. RADIATION DOSE: NA LIMITATIONS: none FINDINGS: LUNGS AND PLEURA: No opacities, masses or pneumothorax. No pleural effusion. MEDIASTINUM AND HILAR STRUCTURES: No masses or contour abnormalities. HEART AND VASCULAR STRUCTURES: Heart normal size. No evidence for failure. Ectatic thoracic aorta. BONES: No acute findings. HARDWARE: None in the chest. OTHER: Prior cholecystectomy. IMPRESSION: NO SIGNIFICANT RADIOGRAPHIC FINDING IN THE CHEST. TECHNICAL DOCUMENTATION: JOB ID: [id number] [employer]- All Rights Reserved Reading location - IP/workstation name: [email or web address]
[2018-09-12 15:48] LABS: ABSOLUTE BASOPHILS # (AUTO) 0.1 10^3/uL (0.0-0.2); ABSOLUTE EOSINOPHILS # (AUTO) 0.2 10^3/uL (0.0-0.6); ABSOLUTE LYMPHOCYTES (AUTO) 1.7 10^3/uL (0.5-4.7); ABSOLUTE MONOCYTES (AUTO) 0.4 10^3/uL (0.1-1.4); ABSOLUTE NEUT (AUTO) 4.9 10^3/uL (1.7-8.2); BASOPHILS % (AUTO) 1.2 % (0-2); EOSINOPHILS % (AUTO) 2.8 % (0-6); HEMOGLOBIN 13.5 g/dL (12.0-15.5); LYMPHOCYTES % (AUTO) 22.9 % (13-45); MEAN CORPUSCULAR HEMOGLOBIN 30.1 pg (27.0-33.4); MEAN CORPUSCULAR HGB CONC 32.9 g/dL (32.0-36.0); MEAN CORPUSCULAR VOLUME 91 fl (80-97); MONOCYTES % (AUTO) 5.2 % (3-13); PLATELET COUNT 227 10^3/uL (150-450); RED BLOOD COUNT 4.49 10^6/uL (3.72-5.28); RED CELL DISTRIBUTION WIDTH 13.8 % (11.5-14.0); SEGMENTED NEUTROPHILS % (AUTO) 67.9 % (42-78); TOTAL CELLS COUNTED % (AUTO) 100 %; WHITE BLOOD COUNT 7.2 10^3/uL (4.0-10.5)
[2018-09-12 15:56] LABS: APPEARANCE,URINE SLIGHTLY-CLOUDY; BILIRUBIN,URINE NEGATIVE (NEGATIVE); COLOR,URINE YELLOW; GLUCOSE, URINE NEGATIVE (NEGATIVE); KETONES,URINE NEGATIVE (NEGATIVE); LEUKOCYTE ESTERASE,URINE LARGE (NEGATIVE); NITRITE,URINE NEGATIVE (NEGATIVE); PROTEIN,URINE NEGATIVE (NEGATIVE); URINE SPECIFIC GRAVITY 1.008; UROBILINOGEN,URINE NEGATIVE mg/dL (<2.0)
[2018-09-12 16:03] LABS: ANION GAP 7 (5-19); BLOOD UREA NITROGEN 26 mg/dL (7-20); CALCIUM 10.5 mg/dL (8.4-10.2); CARBON DIOXIDE 34 mmol/L (22-30); CHLORIDE 100 mmol/L (98-107); GLUCOSE 99 mg/dL (75-110); POTASSIUM 4.7 mmol/L (3.6-5.0); SODIUM 140.8 mmol/L (137-145)
--- NOTE | 2018-09-13 00:04 | EKG REPORT ---
SEVERITY:- OTHERWISE NORMAL ECG - SINUS RHYTHM BORDERLINE LEFT AXIS DEVIATION : Confirmed by: Zhanna Watson MD 13-Sep-2018 00:02:47
== END ==
LOC: OD 14:35
PROVIDERS: ATTEND Orthopaedic Surgery
DX: M16.12 Unilateral primary osteoarthritis, left hip (principal); I10 Essential (primary) hypertension; Z01.811 Encounter for preprocedural respiratory examination; Z01.810 Encounter for preprocedural cardiovascular examination
CPT/HCPCS: 36415; 71046; 80048; 81001; 85025; 93005; 93010

== ENCOUNTER 2018-10-08 06:17 | Inpatient (IN) | payer MEDICARE, OTHER ==
[~2018-10-08 06:17] MED LIST changes: -BUPIVACAINE HCL 0.25% /EPINEPHRINE INJ/PF 30 ML SDV ONE; -BUPIVACAINE INJ/PF LIPOSOME/PF 266 MG/20 ML SDV IJ PRN; +BUPIVACAINE INJ/PF LIPOSOME/PF 266 MG/20 ML SDV INJ PRN; -CLINDAMYCIN 600 MG/D5W RTU 600 MG/50 ML RTUPB IV PRN; +IBUPROFEN 800 MG in NORMAL SALINE 250 ML IV PRN; -IBUPROFEN 800 MG/NS 250 ML IV PRN; -LANSOPRAZOLE 15 MG TAB.RAP.DR PO PRN; +PANTOPRAZOLE SODIUM 20 MG TABLET.DR PO ONE; +PANTOPRAZOLE SODIUM 20 MG TABLET.DR PO PRN; -THROMBIN (BOVINE) TOPICAL 20000 UNIT VIAL ONE
[2018-10-08] MEDS ORDERED: MIDAZOLAM 2 MG/2 ML INJ ONE (07:32)
[2018-10-08] MEDS ORDERED: TRANEXAMIC ACID INJ/PF 1,000 MG/10 ML SDV IV ONE ×2 (07:32→11:02)
[2018-10-08] MEDS ORDERED: PROPOFOL INJ 200 MG/20 ML VIAL IV ONE ×2 (07:33→10:16)
[2018-10-08] MEDS ORDERED: FENTANYL CITRATE INJ/PF 100 MCG/2 ML AMPUL ONE (07:36)
[2018-10-08 07:38] LABS: HEMATOCRIT 39.7 % (36.0-47.0); HEMOGLOBIN 13.3 g/dL (12.0-15.5); MEAN CORPUSCULAR HEMOGLOBIN 30.3 pg (27.0-33.4); MEAN CORPUSCULAR HGB CONC 33.6 g/dL (32.0-36.0); MEAN CORPUSCULAR VOLUME 90 fl (80-97); PLATELET COUNT 231 10^3/uL (150-450); RED BLOOD COUNT 4.39 10^6/uL (3.72-5.28); RED CELL DISTRIBUTION WIDTH 13.5 % (11.5-14.0); WHITE BLOOD COUNT 8.7 10^3/uL (4.0-10.5)
[2018-10-08] MEDS ORDERED: BUPIVACAINE HCL 0.25% /EPINEPHRINE INJ/PF 30 ML SDV ONE (07:53)
[2018-10-08] MEDS ORDERED: THROMBIN (BOVINE) TOPICAL 20000 UNIT VIAL ONE (07:53)
[2018-10-08] MEDS ORDERED: PROMETHAZINE HCL INJ 25 MG/1 ML VIAL IV PRN (09:29)
[2018-10-08] MEDS ORDERED: DIPHENHYDRAMINE HCL 50 MG/ML VIAL IV PRN ×2 (09:29→09:55)
[2018-10-08] MEDS ORDERED: FENTANYL CITRATE INJ/PF 100 MCG/2 ML AMPUL IV PRN ×3 (09:29)
[2018-10-08] MEDS ORDERED: MEPERIDINE HCL/PF INJ 25 MG/1 ML DISP.SYRIN IV PRN (09:29)
[2018-10-08] MEDS ORDERED: ONDANSETRON HCL INJ/PF 4 MG/2 ML SDV IV PRN ×3 (09:29→11:30)
--- NOTE | 2018-10-08 09:54 | Operative Report ---
Operative Report DATE OF SURGERY: 10/08/18 PREOPERATIVE DIAGNOSIS: Left hip arthritis OPERATION: Left hip arthroplasty SURGEON: QUETA SMALLS ANESTHESIA: Spinal TISSUE REMOVED OR ALTERED: Femoral head to pathology ESTIMATED BLOOD LOSS: 100 PROCEDURE: Implants used: Femur: Catarina Accolade 2 stem size 4 Acetabular shell: 54 mm hemispherical shell Liner: 36 mm flat cross-link polyethylene liner Head: 36 mm chrome cobalt head -5 neck The patient is placed in a right lateral decubitus position on the operating table. The left lower extremity and hindquarter is prepped and draped in a sterile fashion. A curvilinear incision was made over the greater trochanter a posterior approach the hip was taken. The femoral head is dislocated and the femoral neck transected using an oscillating saw. Attention was next turned to the acetabulum. Soft tissues cleared off the acetabulum using electrocautery. The acetabulum was then prepared using a series of hemispherical reamers until a 54 millimeters reamer is seated. Subsequently a 54 millimeters [place] titanium hemispherical shell is impacted into position. A standard flat 36 millimeters cross-link liner is impacted into the shell. Attention was next turned to the femur. Access is gained to the femoral canal using a box osteotome to the piriformis fossa. The femur is then prepared using a series of broaches until a number 4 broach is seated. A trial reduction was now performed using a 36 millimeters head with and -5 neck. Preoperative leg length was recreated and is excellent anterior posterior stability. A decision was made to proceed with the above construct. All trial implants were removed. The wound is irrigated with pulsed lavage. A number 4 stem is impacted into the femoral canal. A trial reduction was again performed with a 36 mm head and a -5 neck. Findings as previously. The hip was dislocated one last time and the final chrome-cobalt head is impacted onto the trunnion. The hip was reduced. Wound is copiously irrigated with pulsed lavage. Sent closed in layers using interrupted Vicryl followed by gwendolyn. A sterile dressing is applied and the patient's returned to recovery room in satisfactory patient.
[2018-10-08] MEDS ORDERED: OXYCODONE HCL IR 5 MG TABLET PO PRN (09:55)
[2018-10-08] MEDS ORDERED: ACETAMINOPHEN 325 MG TABLET PO PRN (09:55)
[2018-10-08] MEDS ORDERED: ONDANSETRON 4 MG TAB.RAPDIS PO PRN ×2 (09:55→11:30)
[2018-10-08] MEDS ORDERED: MAG HYDROX/AL HYDROX/SIMETH SUSP 30 ML UDCUP PO PRN ×2 (09:55→11:30)
[2018-10-08] MEDS ORDERED: ZOLPIDEM TARTRATE 5 MG TABLET PO PRN ×2 (09:55→11:30)
[2018-10-08] MEDS ORDERED: (PENDING PHARMACY ID) (Telmisartan [Micardis 80 Mg Tablet] 80 MG) PO SCH (10:00)
[2018-10-08] MEDS ORDERED: LEVOTHYROXINE SODIUM 0.075 MG TABLET PO SCH (10:00)
[2018-10-08] MEDS ORDERED: ALLOPURINOL 100 MG TABLET PO SCH (10:00)
[2018-10-08] MEDS ORDERED: FUROSEMIDE 40 MG TABLET PO SCH (10:00)
[2018-10-08] MEDS ORDERED: (PENDING PHARMACY ID) (Escitalopram Oxalate [Lexapro] 5 MG) PO SCH (10:00)
[2018-10-08] MEDS ORDERED: ONDANSETRON HCL INJ/PF 4 MG/2 ML SDV ONE (10:44)
[2018-10-08] MEDS ORDERED: PROMETHAZINE HCL INJ 25 MG/1 ML VIAL ONE (11:02)
--- NOTE | 2018-10-08 11:12 | RADIOLOGY REPORT (SQ) ---
EXAM DESCRIPTION: PELVIS AP COMPLETED DATE/TIME: 10/08/2018 10:58 am REASON FOR STUDY: Post Op Long Cassette in PACU M17.12 UNILATERAL PRIMARY OSTEOARTHRITIS, LEFT KNE E COMPARISON: 01/01/2018 NUMBER OF VIEWS: One view TECHNIQUE: AP Pelvis and proximal femurs LIMITATIONS: None. FINDINGS: MINERALIZATION: Normal. HIPS: Right hip arthroplasty was present on prior study. There is now a left hip arthroplasty in goo d position. . PELVIS AND SACRUM: No acute fracture or dislocation. No worrisome bone lesions. PUBIS AND ISCHIUM: No acute fracture. LOWER LUMBAR SPINE: Lower lumbar degenerative disc changes and spondylosis. SOFT TISSUES: No findings. OTHER: No other significant finding. IMPRESSION: New left hip arthroplasty in good position. Lumbar degenerative changes. COMMENT: Pelvic fractures are often occult on plain radiographs. If strong clinical suspicion for f racture, recommend CT or MR. TECHNICAL DOCUMENTATION: JOB ID: [id number] [employer]- All Rights Reserved Reading location - IP/workstation name: [email or web address]
[2018-10-08] MEDS: IBUPROFEN 800 MG in NORMAL SALINE 250 ML IV SCH ×2 (13:49→21:35)
[2018-10-08] MEDS ORDERED: LIDOCAINE 2% INJ-PF (20 MG/ML) 2 ML AMPUL ONE (14:11)
[2018-10-08] MEDS ORDERED: PHENYLEPHRINE HCL INJ/PF 10 MG/1 ML SDV ONE (14:11)
[2018-10-08] MEDS ORDERED: GLYCOPYRROLATE 1 MG/5 ML VIAL ONE (14:11)
[2018-10-08] MEDS: SENNOSIDES/DOCUSATE 8.6-50 MG 1 EACH TABLET PO SCH (17:38)
[2018-10-08] MEDS: PREGABALIN 75 MG CAPSULE PO SCH (17:38)
[2018-10-08] MEDS: RINGERS SOLUTION,LACTATED 1,000 ML IV PRN (21:32)
[2018-10-08] MEDS: OXYCODONE HCL SR 10 MG TABLET PO SCH (21:35)
[2018-10-08] MEDS: ATORVASTATIN CALCIUM 10 MG TABLET PO SCH (21:36)
[2018-10-08] MEDS: ASPIRIN 81 MG TABLET, ENT COATED PO SCH (21:36)
[2018-10-08] MEDS: METOPROLOL TARTRATE 25 MG TABLET PO SCH (21:36)
[2018-10-08] MEDS ORDERED: VANCOMYCIN HCL 1,000 MG in DEXTROSE 5%-WATER 250 ML IV ONE (21:55)
[2018-10-09] MEDS: LEVOTHYROXINE SODIUM 0.05 MG TABLET PO SCH (05:25)
[2018-10-09] MEDS: PANTOPRAZOLE SODIUM 40 MG TABLET.DR PO SCH (05:26)
[2018-10-09] MEDS: RINGERS SOLUTION,LACTATED 1,000 ML IV PRN ×3 (05:27→21:15)
[2018-10-09] MEDS: IBUPROFEN 800 MG in NORMAL SALINE 250 ML IV SCH ×3 (05:29→21:18)
[2018-10-09 05:51] LABS: HEMATOCRIT 33.8 % (36.0-47.0); HEMOGLOBIN 11.4 g/dL (12.0-15.5); MEAN CORPUSCULAR HEMOGLOBIN 30.8 pg (27.0-33.4); MEAN CORPUSCULAR HGB CONC 33.7 g/dL (32.0-36.0); MEAN CORPUSCULAR VOLUME 91 fl (80-97); PLATELET COUNT 160 10^3/uL (150-450); RED CELL DISTRIBUTION WIDTH 13.5 % (11.5-14.0); WHITE BLOOD COUNT 6.2 10^3/uL (4.0-10.5)
[2018-10-09] MEDS ORDERED: LEVOTHYROXINE SODIUM 0.1 MG TABLET PO SCH (06:00)
[2018-10-09] MEDS ORDERED: LEVOTHYROXINE SODIUM 0.025 MG TABLET PO SCH (06:00)
[2018-10-09 06:05] LABS: ANION GAP 6 (5-19); BLOOD UREA NITROGEN 22 mg/dL (7-20); CALCIUM 8.8 mg/dL (8.4-10.2); CARBON DIOXIDE 28 mmol/L (22-30); CHLORIDE 104 mmol/L (98-107); GLUCOSE 101 mg/dL (75-110); POTASSIUM 3.9 mmol/L (3.6-5.0)
--- NOTE | 2018-10-09 07:08 | PDOC PROGRESS REPORT ---
Subjective Progress Note for:: 10/09/18 Reason For Visit: LEFT HIP ARTHRITIS 78-year-old white female now postop day 1 status post left hip arthroplasty. Patient with no complaints this morning. Physical Exam Vital Signs: Temp Pulse Resp BP Pulse Ox 37.3 C 89 17 117/44 L 93 10/09/18 00:59 10/09/18 00:59 10/09/18 00:59 10/09/18 00:59 10/09/18 00:59 Intake & Output 10/08/18 10/09/18 10/10/18 06:59 06:59 06:59 Intake Total 0 7340 Output Total 4660 Balance 0 2680 Weight 100.5 kg Physical Exam: Telemetry white female lying in bed. She is cheerful, alert, and appropriate. General appearance: PRESENT: no acute distress, obese Respiratory exam: PRESENT: unlabored Pulses: PRESENT: +1 pedal pulses bilateral Vascular exam: PRESENT: normal capillary refill GI/Abdominal exam: PRESENT: soft Rectal exam: PRESENT: deferred Extremities exam: PRESENT: other - Left hip dressing with a small amount of old drainage. There is some surrounding ecchymosis. Minimal induration. Leg lengths are equal. Distal neurovascular examination is intact. Neurological exam: PRESENT: alert, awake, oriented to person, oriented to place, oriented to time, oriented to situation. ABSENT: motor sensory deficit Psychiatric exam: PRESENT: appropriate affect, normal mood. ABSENT: homicidal ideation, suicidal ideation Skin exam: PRESENT: dry, intact, warm. ABSENT: cyanosis, rash Results Laboratory Results: 10/09/18 04:58 10/09/18 04:58 10/08/18 10/08/18 10/08/18 07:19 07:19 07:19 WBC 8.7 RBC 4.39 Hgb 13.3 Hct 39.7 MCV 90 MCH 30.3 MCHC 33.6 RDW 13.5 Plt Count 231 Sodium Potassium 4.5 Chloride Carbon Dioxide Anion Gap BUN Creatinine Est GFR ( Amer) Est GFR (Non-Af Amer) Glucose Calcium Blood Type AB NEGATIVE Antibody Screen POSITIVE 10/09/18 10/09/18 04:58 04:58 WBC 6.2 RBC 3.70 L Hgb 11.4 L Hct 33.8 L MCV 91 MCH 30.8 MCHC 33.7 RDW 13.5 Plt Count 160 Sodium 138.0 Potassium 3.9 Chloride 104 Carbon Dioxide 28 Anion Gap 6 BUN 22 H Creatinine 1.26 H Est GFR ( Amer) 50 L Est GFR (Non-Af Amer) 41 L Glucose 101 Calcium 8.8 Blood Type Antibody Screen Impressions: Pelvis X-Ray 10/08/18 09:57 IMPRESSION: New left hip arthroplasty in good position. Lumbar degenerative changes. Status: Imported from PACS Assessment & Plan - Diagnosis (1) Arthritis of left hip Is this a current diagnosis for this admission?: Yes Plan: Patient will be mobilized with physical therapy and weightbearing as tolerated basis. Anticipate discharge home tomorrow with home health services and DME. - Time Time Spent with patient: 15-24 minutes Anticipated discharge: Home with Homehealth Within: within 24 hours
[2018-10-09] MEDS: FUROSEMIDE 20 MG TABLET PO SCH (09:04)
[2018-10-09] MEDS: LOSARTAN POTASSIUM 50 MG TABLET PO SCH (09:12)
[2018-10-09] MEDS: METOPROLOL TARTRATE 25 MG TABLET PO SCH ×2 (09:14→21:18)
[2018-10-09] MEDS: PRENATAL VITAMIN W DHA CAPSULE PO SCH (09:18)
[2018-10-09] MEDS: OXYCODONE HCL SR 10 MG TABLET PO SCH (09:18)
[2018-10-09] MEDS: ESCITALOPRAM OXALATE 10 MG TABLET PO SCH (09:19)
[2018-10-09] MEDS: SENNOSIDES/DOCUSATE 8.6-50 MG 1 EACH TABLET PO SCH ×2 (09:19→17:37)
[2018-10-09] MEDS: ALLOPURINOL 100 MG TABLET PO SCH (09:19)
[2018-10-09] MEDS: PREGABALIN 75 MG CAPSULE PO SCH ×2 (09:19→17:37)
[2018-10-09] MEDS: MONTELUKAST SODIUM 10 MG TABLET PO SCH (09:19)
[2018-10-09] MEDS ORDERED: TRAMADOL HCL 50 MG TABLET PO PRN (18:18)
[2018-10-09] MEDS: ATORVASTATIN CALCIUM 10 MG TABLET PO SCH (21:14)
[2018-10-09] MEDS: ASPIRIN 81 MG TABLET, ENT COATED PO SCH (21:14)
[2018-10-10] MEDS: LEVOTHYROXINE SODIUM 0.05 MG TABLET PO SCH (05:15)
[2018-10-10] MEDS: PANTOPRAZOLE SODIUM 40 MG TABLET.DR PO SCH (05:15)
[2018-10-10] MEDS: IBUPROFEN 800 MG in NORMAL SALINE 250 ML IV SCH (05:16)
--- NOTE | 2018-10-10 07:24 | PDOC DISCHARGE SUMMARY ---
General - Admit/Disc Date/PCP Admission Date/Primary Care Provider: 10/08/18 06:17 RANJAN PRICE MD Discharge Date: 10/10/18 - Discharge Diagnosis (1) Arthritis of left hip Is this a current diagnosis for this admission?: Yes - Additional Information Resuscitation Status: Full Code Discharge Diet: As Tolerated, Regular Discharge Activity: Balance Activity w/Rest, No tub bath Home Medications: Allopurinol [Zyloprim 100 mg Tablet] 100 mg PO DAILY 10/04/12 Aspirin [Ecotrin 81 mg EC Tablet] 81 mg PO QHS 10/04/12 Atorvastatin Calcium [Lipitor] 10 mg PO QHS 10/04/12 Calcium Carbonate/Vitamin D3 [Calcium 600-Vit D3 200 Tablet] 600 mg PO BID 10/04/12 Ergocalciferol (Vitamin D2) [Drisdol 50,000 unit (1.25MG) Capsule] 50,000 unit PO WE@1000 10/04/12 Levothyroxine Sodium [Synthroid 0.075 mg Tablet] 125 mcg PO DAILY 10/04/12 Meclizine HCl [Antivert] 25 mg PO Q6HP PRN 10/04/12 Metoprolol Tartrate [Lopressor 25 mg Tablet] 25 mg PO Q12 10/04/12 [place]-3 Fatty Acids/Fish Oil [[place] 3 Fish Oil Softgel] 1 each PO DAILY 10/04/12 Psyllium Husk [Metamucil] 0.52 gm PO DAILY 10/04/12 Ranitidine HCl 150 mg PO Q12 10/04/12 Multivit-Min/Iron/Folic/Lutein [Centrum Silver Women Tablet] 1 tab PO DAILY 12/21/17 Acetaminophen [Tylenol 325 mg Tablet] 650 mg PO Q6HP PRN #120 tablet 01/10/18 Levalbuterol HCl [Xopenex Neb 1.25 mg/3 ml Ampul] 1.25 mg NEB RTQ6HP PRN #100 vial.neb 01/11/18 Escitalopram Oxalate [Lexapro] 5 mg PO DAILY 09/19/18 Furosemide [Lasix 40 mg Tablet] 20 mg PO DAILY 09/19/18 Montelukast Sodium [Singulair 10 mg Tablet] 10 mg PO DAILY 09/19/18 Telmisartan [Micardis 80 mg Tablet] 80 mg PO DAILY 09/19/18 History of Present Illness History of Present Illness: TIM ORELLANA is a 78 year old female The patient is a 78-year-old white female with progressive left hip pain and functional disability second osteoarthritis. Patient is admitted for elective left hip arthroplasty. Hospital Course Hospital Course: Patient is admitted through the operating where she can undergoes uncomplicated left hip arthroplasty. She is returned to floor in satisfactory condition. The spine episode of oversedation was limits her ability to participate with physical therapy on postop day 1. Her medication is adjusted and she is alert oriented and appropriate on postop day 2. Physical Exam Vital Signs: Temp Pulse Resp BP Pulse Ox 36.8 C 64 16 108/42 L 100 10/09/18 23:21 10/09/18 23:21 10/09/18 23:21 10/09/18 23:21 10/09/18 20:00 Intake & Output 10/09/18 10/10/18 10/11/18 06:59 06:59 06:59 Intake Total 7340 4075 Output Total 4660 Balance 2680 4075 Weight 100.5 kg 100.5 kg Physical Exam: Middle-aged white female lying in a hospital bed in no acute distress. Patient is alert, oriented, appropriate. General appearance: PRESENT: no acute distress, obese Head exam: PRESENT: normocephalic Respiratory exam: PRESENT: unlabored Cardiovascular exam: PRESENT: RRR Pulses: PRESENT: +1 pedal pulses bilateral Vascular exam: PRESENT: normal capillary refill GI/Abdominal exam: PRESENT: soft Rectal exam: PRESENT: deferred Extremities exam: PRESENT: other - Left hip dressing with a small amount of drainage at the distal third which is old. Otherwise the operative dressing is clean dry and intact. Leg lengths are equal. Distal neurovascular examination is intact. Neurological exam: PRESENT: alert, awake, oriented to person, oriented to place, oriented to time, oriented to situation. ABSENT: motor sensory deficit Psychiatric exam: PRESENT: appropriate affect, normal mood. ABSENT: homicidal ideation, suicidal ideation Skin exam: PRESENT: dry, intact, warm. ABSENT: cyanosis, rash Results Laboratory Results: 10/09/18 04:58 10/09/18 04:58 Impressions: Pelvis X-Ray 10/08/18 09:57 IMPRESSION: New left hip arthroplasty in good position. Lumbar degenerative changes. Status: Imported from PACS Qualifiers - * PATIENT BEING DISCHARGED WITH ANY OF THE FOLLOWING DIAGNOSIS: No VTE patient discharged on overlapping Therapy?: Yes Acute Heart Failure - Is this a Heart Failure Patient?: No Plan Discharge Plan: Patient be discharged home with home health services and DME. Follow-up with Dr. Llamas and [facility] for surgery in 2 weeks for staple removal
[2018-10-10 08:08] LABS: HEMATOCRIT 28.6 % (36.0-47.0); HEMOGLOBIN 9.6 g/dL (12.0-15.5); MEAN CORPUSCULAR HEMOGLOBIN 30.5 pg (27.0-33.4); MEAN CORPUSCULAR HGB CONC 33.4 g/dL (32.0-36.0); MEAN CORPUSCULAR VOLUME 92 fl (80-97); PLATELET COUNT 136 10^3/uL (150-450); RED BLOOD COUNT 3.13 10^6/uL (3.72-5.28); RED CELL DISTRIBUTION WIDTH 13.7 % (11.5-14.0); WHITE BLOOD COUNT 6.1 10^3/uL (4.0-10.5)
[2018-10-10] MEDS: FUROSEMIDE 20 MG TABLET PO SCH (10:31)
[2018-10-10] MEDS: PREGABALIN 75 MG CAPSULE PO SCH (10:31)
[2018-10-10] MEDS: MONTELUKAST SODIUM 10 MG TABLET PO SCH (10:53)
[2018-10-10] MEDS: LOSARTAN POTASSIUM 50 MG TABLET PO SCH (10:54)
[2018-10-10] MEDS: ESCITALOPRAM OXALATE 10 MG TABLET PO SCH (10:55)
[2018-10-10] MEDS: ALLOPURINOL 100 MG TABLET PO SCH (10:55)
[2018-10-10] MEDS: SENNOSIDES/DOCUSATE 8.6-50 MG 1 EACH TABLET PO SCH (10:55)
[2018-10-10] MEDS: METOPROLOL TARTRATE 25 MG TABLET PO SCH (10:55)
[2018-10-10] MEDS: PRENATAL VITAMIN W DHA CAPSULE PO SCH (10:55)
[2018-10-10 11:33] VITALS: BP 120/44
== END 2018-10-10 13:14 | disposition home health service (06) | DRG 470 ==
LOC: INOR 06:17 → 4S 11:27
PROVIDERS: ADMIT Orthopaedic Surgery; ATTEND Orthopaedic Surgery
PROC: 0SRB02A Replacement of Left Hip Joint with Metal on Polyethylene Synthetic Substitute, Uncemented, Open Approach (ICD-10-PCS; principal; 2018-10-08 08:45)
DX: M16.12 Unilateral primary osteoarthritis, left hip (principal); M25.552 Pain in left hip; I10 Essential (primary) hypertension; E03.9 Hypothyroidism, unspecified; E78.00 Pure hypercholesterolemia, unspecified; F41.9 Anxiety disorder, unspecified; Z79.82 Long term (current) use of aspirin; Z79.899 Other long term (current) drug therapy; Z79.51 Long term (current) use of inhaled steroids
CPT/HCPCS: 01214; 36415; 72170; 80048; 84132; 85027; 86850; 86870; 86900; 86901; 86920; 86922; 88304; 88311; 94799; C1776; J1741; J2250; J2370; J2405; J2550; J2704; J3010; J3370; J3490; J7050; J7060; J7120

== ENCOUNTER → 2018-11-26 | Outpatient (CLI) | payer MEDICARE, OTHER ==
--- NOTE | 2018-11-26 15:06 | RADIOLOGY REPORT (SQ) ---
EXAM DESCRIPTION: CT CHEST WITHOUT COMPLETED DATE/TIME: 11/26/2018 1:12 pm REASON FOR STUDY: SOLITARY PULMONARY NODULE (R91.1), OTHER DISORDERS OF LUNG (J98.4) R91.1 SOLITARY PULMONARY NODULE COMPARISON: 11/28/2017, 11/28/2016, and 10/30/2014. TECHNIQUE: CT scan performed of the chest without intravenous contrast. Images reviewed with lung, soft tissue and bone windows. Reconstructed coronal and sagittal MPR images reviewed. All images st ored on PACS. All CT scanners at this facility use dose modulation, iterative reconstruction, and/or weight based d osing when appropriate to reduce radiation dose to as low as reasonably achievable (ALARA). [facility]: Dose Right [facility]: CareDose [facility]: Dose Right [facility]: Teradose 4D [facility]: [employer] RADIATION DOSE: CT Rad equipment meets quality standard of care and radiation dose reduction techniq ues were employed. CTDIvol: 14.2 mGy. DLP: 544 mGy-cm. mGy. LIMITATIONS: No technical limitations. FINDINGS: LUNGS AND PLEURA: Stable 8.1 mm nodule in the left lower lobe (axial series 4, image 88). Stable focal area of pleural thickening anterior to the left upper lobe (axial series 4, image 42). Large bulla in the right lower lobe unchanged. No new nodules or masses. No infiltrates. No pleur al effusion. No pleural calcification. HILAR AND MEDIASTINAL STRUCTURES: No identified masses or abnormal nodes. No obvious aneurysm. HEART AND VASCULAR STRUCTURES: No aneurysm. No pericardial effusion. UPPER ABDOMEN: No significant findings. Limited exam. THYROID AND OTHER SOFT TISSUES: No masses. No adenopathy. BONES: No significant finding. HARDWARE: None in the chest. OTHER: No other significant findings. IMPRESSION: STABLE APPEARANCE OF THE CHEST. 8.1 MM NODULE IN THE LEFT LOWER LOBE UNCHANGED. OTHER FINDINGS ABOVE, ALSO UNCHANGED. TECHNICAL DOCUMENTATION: JOB ID: [id number] Quality ID # [id number]: Final reports with documentation of one or more dose reduction techniques (e.g., Au tomated exposure control, adjustment of the mA and/or kV according to patient size, use of iterative reconstruction technique) 2010 [employer]- All Rights Reserved Reading location - IP/workstation name: [email or web address]
== END ==
LOC: RAD 13:00
PROVIDERS: ATTEND Internal Medicine
DX: J98.4 Other disorders of lung (principal); R91.1 Solitary pulmonary nodule
CPT/HCPCS: 71250

== ENCOUNTER → 2019-11-28 | Outpatient (CLI) | payer MEDICARE, OTHER ==
--- NOTE | 2019-11-28 14:09 | RADIOLOGY REPORT (SQ) ---
EXAM DESCRIPTION: CT CHEST WITHOUT IMAGES COMPLETED DATE/TIME: 11/28/2019 12:52 pm REASON FOR STUDY: R91.1 SOLITARY PULMONARY NODULE R91.1 SOLITARY PULMONARY NODULE COMPARISON: 11/26/2018 TECHNIQUE: CT scan performed of the chest without intravenous contrast. Images reviewed with lung, soft tissue and bone windows. Reconstructed coronal and sagittal MPR images reviewed. All images st ored on PACS. All CT scanners at this facility use dose modulation, iterative reconstruction, and/or weight based d osing when appropriate to reduce radiation dose to as low as reasonably achievable (ALARA). [facility]: Dose Right [facility]: CareDose [facility]: Dose Right [facility]: Teradose 4D [facility]: [employer] RADIATION DOSE: CT Rad equipment meets quality standard of care and radiation dose reduction techniq ues were employed. CTDIvol: 19.3 mGy. DLP: 778 mGy-cm. mGy. LIMITATIONS: No technical limitations. FINDINGS: LUNGS AND PLEURA: Stable 8 mm part solid nodule left lower lobe image 89. Large bulla abu tting the right major fissure. Scarring in the lingula. No new nodules. HILAR AND MEDIASTINAL STRUCTURES: No identified masses or abnormal nodes. No obvious aneurysm. HEART AND VASCULAR STRUCTURES: No aneurysm. No pericardial effusion. UPPER ABDOMEN: No significant findings. Limited exam. THYROID AND OTHER SOFT TISSUES: No masses. No adenopathy. BONES: No significant finding. HARDWARE: None in the chest. OTHER: No other significant findings. IMPRESSION: Stable pulmonary nodule. TECHNICAL DOCUMENTATION: JOB ID: [id number] Quality ID # [id number]: Final reports with documentation of one or more dose reduction techniques (e.g., Au tomated exposure control, adjustment of the mA and/or kV according to patient size, use of iterative reconstruction technique) 2010 [employer]- All Rights Reserved Reading location - IP/workstation name: [email or web address]
== END ==
LOC: RAD 12:41
PROVIDERS: ATTEND Physician Assistant Medical
DX: R91.1 Solitary pulmonary nodule (principal)
CPT/HCPCS: 71250